=== PATIENT | male | born 1955 | race Caucasian/White ===

== ENCOUNTER 2016-10-06 05:38 | Outpatient (CLI) | payer OTHER ==
[~2016-10-06] VITALS: Ht 177.8 cm; Wt 84.4 kg
[~2016-10-06 05:38] MED LIST: ASCO-262 PO; ASP81TEC PO; AZIL1TAB3 PO; CALC-20 PO; CARV3.122 PO; HYDR-3583 PO; METH-336 PO; MULT-963 PO; NIAC1000 PO; OMG1KC PO; SIMV40TA4 PO; TADA2.5T PO; TEST60GE TD
[2016-10-06] MEDS ORDERED: TAMS0.4C2 PO (10:10)
== END 2016-10-06 10:15 ==
LOC: PREOP 05:38
PROVIDERS: ATTEND Surgery
DX: Z01.818 Encounter for other preprocedural examination (principal); Z12.11 Encounter for screening for malignant neoplasm of colon

== ENCOUNTER 2016-10-10 09:35 | Day surgery (SDC) | payer OTHER ==
[~2016-10-10] VITALS: Ht 177.8 cm; Wt 84.4 kg
[~2016-10-10 09:35] MED LIST changes: +TAMS0.4C2 PO
[2016-10-10] MEDS ORDERED: LACTATED RINGERS 1,000 ML IV STA (09:45)
[2016-10-10] MEDS ORDERED: LACTATED RINGERS 1,000 ML IV ONE (09:50)
[2016-10-10] MEDS ORDERED: MIDAZOLAM 2 MG/2 ML (VERSED) VIAL ONE (10:03)
[2016-10-10] MEDS ORDERED: proPOfol 200 MG/20 ML (DIPRIVAN) VIAL IV ONE ×2 (10:03→10:33)
[2016-10-10 10:10] VITALS: BP 120/90
--- NOTE | 2016-10-10 10:17 | Progress Note-Pre Operative ---
Pre-Operative Progress Note H&P Reviewed The H&P was reviewed, patient examined and no changes noted. Date Seen by Provider: Oct 10, 2016 Time Seen by Provider: 10:16 Date H&P Reviewed: Oct 10, 2016 Time H&P Reviewed: 10:17 Pre-Operative Diagnosis: history of polyps MAY CALDERON DO Oct 10, 2016 10:17 am
--- NOTE | 2016-10-10 10:59 | Progress Note-Post Operative ---
Post-Operative Progess Note Surgeon (s)/Legal Receptionist (s) Surgeon MAY CALDERON DO Legal Receptionist: na Pre-Operative Diagnosis history of polyps Post-Operative Diagnosis sigmoid and rectal polyp diverticulosis Procedure & Operative Findings Date of Procedure 10/10/16 Procedure Performed/Findings colonoscopy with hot biopsy polypectomy, sigmoid and rectal polyp Anesthesia Type per pharmacist critical care Estimated Blood Loss Estimated blood loss (mL): scant Specimens/Packing Specimens Removed distal sigmoid polyp, rectal polyp Packing: none MAY CALDERON DO Oct 10, 2016 10:59 am
--- NOTE | 2016-10-10 11:04 | Discharge Inst-Simple/Standard ---
Discharge Inst-Standard Patient Instructions/Follow Up Plan of Care/Instructions/FU: Follow up with Dr. Houston in 2 weeks. Repeat colonoscopy in 5 years Activity as Tolerated: Yes Discharge Diet: No Restrictions GONSALO CHAO APRN Oct 10, 2016 11:04
[2016-10-10 11:05] VITALS: BP 102/45
[2016-10-10 11:30] VITALS: BP 124/83
[2016-10-10 11:39] VITALS: BP 124/83
--- NOTE | 2016-10-10 12:43 | OPERATIVE REPORT ---
PROCEDURE PHYSICIAN: MAY CALDERON DATE OF PROCEDURE: 10/10/2016 PREOPERATIVE DIAGNOSIS: History of colon polyps. POSTOPERATIVE DIAGNOSES: 1. Sigmoid and rectal polyp. 2. Diverticulosis. PROCEDURE: Colonoscopy hot biopsy polypectomy x2 of sigmoid and rectal polyp. SURGEON: Celso. ANESTHESIA: Per MANAGER [place]. ESTIMATED BLOOD LOSS: Scant. SPECIMEN: Distal sigmoid colon polyp and rectal polyp. INDICATIONS: The patient is a 61-year-old male with history of colon polyps. He understands the risks and benefits of the procedure and wished to proceed with the procedure. Consent was signed on the chart. PROCEDURE: The patient was taken to the endoscopy suite, placed in left lateral recumbent position. Timeout was performed. Digital rectal exam was performed. There were no palpable polyps, masses or ulcerations. The scope was inserted into the rectum and advanced all the way to the cecum with minimal difficulty. Terminal ileum was intubated and then withdrawn. There were no polyps, masses or ulcerations within the cecum, ascending, transverse, and descending colon. Within the sigmoid colon, there is a minimal amount of diverticulosis present. Within the distal portion of the sigmoid colon, a slightly larger polyp was present on the posterior fold. Hot biopsy polypectomy was performed. The scope was then continued be slowly retracted back until in the rectum, where another small polyp near the distal portion of the rectum was present. Hot biopsy polypectomy was performed. There was a little bit oozing which was controlled with electrocautery. Multiple insertions and retractions were made noting no other pathology. The scope was then slowly retracted until completely removed. The patient tolerated the procedure well without any complications, taken to recovery room in stable condition. RECOMMENDATIONS: The patient will need repeat colonoscopy in one year to reevaluate colon polyps due to the distal sigmoid colon being a larger polyp on the posterior fold, would reexamination to make sure that it is completely eradicated. The patient will follow-up in the office in 2 weeks to discuss pathology and findings. If the patient has any problems prior to that, he should be reevaluated at that time. Job ID: [id number] Dictated Date: 10/10/2016 11:02:38 Building Inspector Date: 10/10/2016 12:31:17 / lenore
== END 2016-10-10 11:40 | disposition home or self-care (01) ==
LOC: ENDO 09:35
PROVIDERS: ATTEND Surgery
DX: Z12.11 Encounter for screening for malignant neoplasm of colon (principal); D12.5 Benign neoplasm of sigmoid colon; D12.8 Benign neoplasm of rectum; K57.30 Diverticulosis of large intestine without perforation or abscess without bleeding; Z86.010 Personal history of colon polyps; I10 Essential (primary) hypertension; E78.2 Mixed hyperlipidemia; Z87.891 Personal history of nicotine dependence; Z79.899 Other long term (current) drug therapy
CPT/HCPCS: 88305

== ENCOUNTER → 2016-12-20 | Outpatient (CLI) | payer OTHER ==
[~2016-12-20] VITALS: Ht 177.8 cm; Wt 89.8 kg
[~2016-12-20] MED LIST changes: +CATHETER FLUSH 10 ML SYR IV PRN
--- NOTE | 2016-12-21 06:53 | STRESS TEST ---
DATE OF SERVICE: 12/20/2016 PROCEDURE: Exercise Myoview Stress Test. REFERRING PHYSICIAN: Dr. Anguiano. Baseline heart rate is 69, baseline EKG is sinus rhythm with no ischemic changes. Baseline blood pressure is 113/73. SUMMARY: The patient was injected with 10.61 mCi of technetium-99 Myoview and the resting images were obtained. Then, the patient started exercising with the baseline heart rate, blood pressure and EKG mentioned above. At minute 6 and 50 seconds, the patient was injected with 30.1 mCi of technetium-99 Myoview. He was able to exercise for a total of 8 minutes on standard Ander protocol, achieving maximum heart rate of 153, which is 95% of maximum expected heart rate. With peak exercise level EKG was showing minimal nondiagnostic changes. Blood pressure was 182/60. During recovery, heart rate and blood pressure returned to baseline. EKG returned to baseline. The resting and stress images were reviewed and compared in the short axis, horizontal long axis, and vertical long axis views. Review of the images showed diaphragmatic attenuation with motion artifact affecting the quality of the images. There is questionable ischemia involving the mid to apical inferior wall and inferolateral wall. SSS is 7, SDS 5, TID value 0.96. On the gated images, the left ventricle appeared to be in normal size with mild hypokinesia of the inferior wall and inferoseptum. Calculated ejection fraction 52%. CONCLUSION: 1. Good exercise tolerance a total of 8 minutes on standard Ander protocol, total of 9.7 METS achieving 95% of maximum expected heart rate. 2. Minimal nondiagnostic EKG changes with exercise, returned to baseline during recovery. 3. Diaphragmatic attenuation with motion artifact affecting the quality of the images. There is questionable ischemia involving the mid to apical inferior wall and inferolateral wall. 4. Normal left ventricular size with mild hypokinesia of the inferior wall, calculated ejection fraction 52%. Job ID: [id number] DocumentID: [id number] Dictated Date: 12/20/2016 11:45:33 Cook Sauce Date: 12/20/2016 12:57:05 Dictated By: MADHURI ZAMBRANO MD
== END ==
LOC: CARD 07:51
PROVIDERS: ATTEND Internal Medicine Cardiovascular Disease
DX: R06.09 Other forms of dyspnea (principal); I10 Essential (primary) hypertension; E78.2 Mixed hyperlipidemia
CPT/HCPCS: 78452; 93017

== ENCOUNTER → 2017-07-10 | Outpatient (CLI) | payer OTHER ==
[~2017-07-10] MED LIST changes: +ASPI-586 PO; -CATHETER FLUSH 10 ML SYR IV PRN; +HYDR-3812 PO; +NIAC10002 PO; +TEST200V21 IM
--- NOTE | 2017-07-10 10:32 | Diagnostic Imaging Report ---
PROCEDURE: CT sinuses without contrast TECHNIQUE: Multiple contiguous axial images were obtained through the sinuses without the use of intravenous contrast. Coronal and sagittal reformations were then performed. INDICATION: Left nasal mass, feels a knot on inside of the nose. This has been noticed for approximately 6 months. FINDINGS: There is moderate leftward nasal septal deviation. There are mildly prominent asymmetric areas of nasal mucosal thickening. There is a slightly more focal area of soft tissue density at the level of the septum inferiorly. No pronounced asymmetric nasal spur formation. Very small areas of yarelis bullosa are present. Probable small cysts or polyps of both maxillary sinuses, particularly along the floor but also involving the medial left maxillary sinus wall. There is mucosal thickening with obscuration of the left ostiomeatal complex. There may be slight narrowing without obstruction on the right. There are asymmetric areas of opacification and some mucosal thickening about the ethmoid air cells bilaterally. The frontal sinuses are very hypoplastic. The sphenoid sinuses are with trace mucosal thickening posteriorly on the left. The globes and intra-orbital structures are unremarkable. The visualized mastoid air cells, external auditory canals, and middle ear cavities are clear. IMPRESSION: There is moderate leftward nasal septal deviation. There is slight soft tissue prominence along the inferior aspect of the septum with slight nodularity. The etiology or significance is indeterminate. There is also mild mucosal thickening throughout the remainder of the nasal cavity. 2. Scattered areas of mucosal thickening and opacification of the bilateral ethmoid air cells. 3. Probable small mucous retention cysts or polyps in the bilateral maxillary sinuses. 4. Trace mucosal thickening in the sphenoid sinus. Dictated by: Dictated on workstation # [id number]
== END ==
LOC: RAD 09:04
PROVIDERS: ATTEND Otolaryngology Otolaryngology/Facial Plastic Surgery
DX: J34.2 Deviated nasal septum (principal)
CPT/HCPCS: 70486

== ENCOUNTER 2017-07-25 13:37 | Outpatient (CLI) | payer OTHER ==
[~2017-07-25] VITALS: Ht 180.3 cm; Wt 88.0 kg
[~2017-07-25 13:37] MED LIST changes: -ASPI-586 PO; -HYDR-3812 PO; -NIAC10002 PO; -TEST200V21 IM
[2017-07-25 13:43] VITALS: BP 124/85
[2017-07-26] MEDS ORDERED: ASPI-586 PO (11:39)
[2017-07-26] MEDS ORDERED: TEST200V21 IM (11:39)
[2017-07-26] MEDS ORDERED: OMG1KC PO (11:39)
[2017-07-26] MEDS ORDERED: AZIL1TAB3 PO (11:39)
[2017-07-26] MEDS ORDERED: ASCO-262 PO (11:39)
[2017-07-26] MEDS ORDERED: NIAC10002 PO (11:39)
[2017-07-26] MEDS ORDERED: SIMV40TA4 PO (11:39)
== END 2017-07-25 14:00 ==
LOC: PREOP 13:37
PROVIDERS: ATTEND Otolaryngology Otolaryngology/Facial Plastic Surgery
DX: Z01.818 Encounter for other preprocedural examination (principal); Z11.2 Encounter for screening for other bacterial diseases; R22.0 Localized swelling, mass and lump, head
CPT/HCPCS: 87081

== ENCOUNTER 2017-08-02 06:28 | Day surgery (SDC) | payer OTHER ==
[~2017-08-02] VITALS: Ht 180.3 cm; Wt 88.0 kg
[~2017-08-02 06:28] MED LIST changes: +ASPI-586 PO; +NIAC10002 PO; +TEST200V21 IM
--- OUTSIDE RECORDS SUMMARY | 2017-08-02 06:40 | XMS REPORT | Continuity of Care Document ---
Author Author [facility] Organization [facility] Address Unknown Phone Unavailable Allergies Active Description Code Type Severity Reaction Onset Reported/Identified Relationship to Patient Clinical Status Yes No Known Drug Allergies [id number] Drug Allergy Unknown N/A 10/06/2016 Medications There is no data. Problems Date Dx Coded Attending Type Code Diagnosis Diagnosed By 05/03/2007 Ot V54.19 05/03/2007 Ot V57.1 01/03/2012 Ot 550.90 UNILAT INGUINAL HERNIA 01/03/2012 Ot V58.66 LONG-TERM ( CURRENT) USE OF ASPIRIN 01/03/2012 Ot V58.69 OT MED,LT, CURRENT USE 12/25/2014 Ot 786.09 12/25/2014 Ot V58.66 12/25/2014 Ot V58.69 12/25/2014 Ot 397.0 12/25/2014 Ot 401.9 12/25/2014 Ot 424.0 12/25/2014 Ot 428.30 12/25/2014 Ot 429.3 12/25/2014 Ot 550.90 12/25/2014 Ot V72.63 12/25/2014 Ot V72.81 12/25/2014 Ot V72.83 12/25/2014 Ot V74.8 12/25/2014 NATACHA VICTORIA Ot 272.4 12/25/2014 NATACHA VICTORIA Ot 397.0 12/25/2014 NATACHA VICTORIA Ot 401.9 12/25/2014 NATACHA VICTORIA Ot 414.00 12/25/2014 NATACHA VICTORIA Ot 424.0 12/25/2014 NATACHA VICTORIA Ot 429.3 12/25/2014 NATACHA VICTORIA Ot V17.3 12/29/2014 Ot 786.09 12/29/2014 Ot V58.66 12/29/2014 Ot V58.69 12/29/2014 Ot 397.0 12/29/2014 Ot 401.9 12/29/2014 Ot 424.0 12/29/2014 Ot 428.30 12/29/2014 Ot 429.3 12/29/2014 Ot 550.90 12/29/2014 Ot V72.63 12/29/2014 Ot V72.81 12/29/2014 Ot V72.83 12/29/2014 Ot V74.8 12/29/2014 HUGGINS-KEREN PA, NATACHA K Ot 272.4 12/29/2014 HUGGINS-KEREN PA, NATACHA K Ot 397.0 12/29/2014 HUGGINS-KEREN PA, NATACHA K Ot 401.9 12/29/2014 HUGGINS-KEREN PA, NAATCHA K Ot 414.00 12/29/2014 HUGGINS-KEREN PA, NATACHA K Ot 424.0 12/29/2014 HUGGINS-KEREN PA, NATACHA Pauly Ot 429.3 12/29/2014 HUGGINS-KEREN PA, NATACHA K Ot V17.3 01/05/2015 Ot 786.09 01/05/2015 Ot V58.66 01/05/2015 Ot V58.69 01/05/2015 Ot 397.0 01/05/2015 Ot 401.9 01/05/2015 Ot 424.0 01/05/2015 Ot 428.30 01/05/2015 Ot 429.3 01/05/2015 Ot 550.90 01/05/2015 Ot V72.63 01/05/2015 Ot V72.81 01/05/2015 Ot V72.83 01/05/2015 Ot V74.8 01/05/2015 HUGGINS-KEREN PA, NATACHA K Ot 272.4 01/05/2015 HUGGISN-KEREN PA, NATACHA K Ot 397.0 01/05/2015 HUGGINS-KEREN PA, NATACHA K Ot 401.9 01/05/2015 HUGGINS-KEREN PA, NATACHA K Ot 414.00 01/05/2015 HUGGINS-KEREN PA, NATACHA K Ot 424.0 01/05/2015 HUGGINS-KEREN PA, NATACHA K Ot 429.3 01/05/2015 HUGGINS-KEREN PA, NATACHA rag & bone Ot V17.3 01/05/2015 GAYLA DO, PAULA R Ot E29.1 01/05/2015 GAYLA DO, PAULA R Ot M79.9 01/28/2015 GAYLA NINA, PAULA R Ot E29.1 01/28/2015 GAYLA NINA, PAULA R Ot M79.9 01/28/2015 GAYLA NINA, PAULA R Ot K76.89 07/07/2015 NATACHA VICTORIA Ot E78.2 07/07/2015 NATACHA VICTORIA Ot I10 07/07/2015 NATACHA VICTORIA Ot I51.7 07/09/2015 Ot 786.09 RESPIRATORY ABNORM NEC 07/09/2015 Ot V58.66 LONG-TERM ( CURRENT) USE OF ASPIRIN 07/09/2015 Ot V58.69 OTH MED,LT, CURRENT USE 07/09/2015 Ot 397.0 TRICUSPID VALVE DISEASE 07/09/2015 Ot 401.9 HYPERTENSION NOS 07/09/2015 Ot 424.0 MITRAL VALVE DISORDER 07/09/2015 Ot 428.30 UNSPEC DIASTOLIC HRT FAILURE 07/09/2015 Ot 429.3 CARDIOMEGALY 07/09/2015 Ot 550.90 UNILAT INGUINAL HERNIA 07/09/2015 Ot V72.63 PRE- PROCEDURAL LABORATORY EXAMINATION 07/09/2015 Ot V72.81 EXAM-PRE- OPERATIVE CARDIOVASCULAR 07/09/2015 Ot V72.83 EXAM PRE- OPERATIVE NEC 07/09/2015 Ot V74.8 SCREEN- BACTERIAL DIS NEC 07/09/2015 NATACHA VICTORIA Ot 272.4 HYPERLIPIDEMIA NEC/NOS 07/09/2015 NATACHA VICTORIA Ot 397.0 TRICUSPID VALVE DISEASE 07/09/2015 NATACHA VICTORIA Ot 401.9 HYPERTENSION NOS 07/09/2015 NATACHA VICTORIA Ot 414.00 CORON ATHEROSCLER NOS TYPE VESSEL, NATIV 07/09/2015 NATACHA VICTORIA Ot 424.0 MITRAL VALVE DISORDER 07/09/2015 NATACHA VICTORIA Ot 429.3 CARDIOMEGALY 07/09/2015 NATACHA VICTORIA Ot V17.3 FAM HX-ISCHEM HEART DIS 07/09/2015 JUAN SHUKLA DON R Ot E29.1 TESTICULAR HYPOFUNCTION 07/09/2015 GAYLA PAULA R Ot M79.9 SOFT TISSUE DISORDER, UNSPECIFIED 07/09/2015 GAYLA NINAJUANN R Ot K76.89 OTHER SPECIFIED DISEASES OF LIVER 07/09/2015 NATACHA VICTORIA Ot E78.2 MIXED HYPERLIPIDEMIA 07/09/2015 NATACHA VICTORIA Ot I10 ESSENTIAL (PRIMARY) HYPERTENSION 07/09/2015 NATACHA VICTORIA Ot I51.7 CARDIOMEGALY 07/09/2015 NATACHA VICTORIA Ot E78.2 MIXED HYPERLIPIDEMIA 07/09/2015 NATACHA VICTORIA Ot I10 ESSENTIAL (PRIMARY) HYPERTENSION 07/09/2015 NATACHA VICTORIA Ot I51.7 CARDIOMEGALY 08/04/2015 NATACHA VICTORIA Ot E78.2 MIXED HYPERLIPIDEMIA 08/04/2015 NATACHA VICTORIA Ot I10 ESSENTIAL (PRIMARY) HYPERTENSION 08/04/2015 NATACHA VICTORIA Ot I51.7 CARDIOMEGALY 11/12/2015 Ot 272.4 11/12/2015 Ot V58.69 11/12/2015 Ot V58.83 11/12/2015 Ot 272.4 11/12/2015 Ot V58.69 11/12/2015 Ot 272.4 11/12/2015 Ot V58.69 11/12/2015 Ot 272.4 11/12/2015 Ot 786.09 RESPIRATORY ABNORM NEC 11/12/2015 Ot V58.66 LONG-TERM ( CURRENT) USE OF ASPIRIN 11/12/2015 Ot V58.69 OT MED,LT, CURRENT USE 11/12/2015 Ot 397.0 TRICUSPID VALVE DISEASE 11/12/2015 Ot 401.9 HYPERTENSION NOS 11/12/2015 Ot 424.0 MITRAL VALVE DISORDER 11/12/2015 Ot 428.30 UNSPEC DIASTOLIC HRT FAILURE 11/12/2015 Ot 429.3 CARDIOMEGALY 11/12/2015 Ot 550.90 UNILAT INGUINAL HERNIA 11/12/2015 Ot V72.63 PRE- PROCEDURAL LABORATORY EXAMINATION 11/12/2015 Ot V72.81 EXAM-PRE- OPERATIVE CARDIOVASCULAR 11/12/2015 Ot V72.83 EXAM PRE- OPERATIVE NEC 11/12/2015 Ot V74.8 SCREEN- BACTERIAL DIS NEC 11/12/2015 NATACHA VICTORIA Ot 272.4 HYPERLIPIDEMIA NEC/NOS 11/12/2015 NATACHA VICTORIA Ot 397.0 TRICUSPID VALVE DISEASE 11/12/2015 NATACHA VICTORIA Ot 401.9 HYPERTENSION NOS 11/12/2015 NATACHA VICTORIA Ot 414.00 CORON ATHEROSCLER NOS TYPE VESSEL, NATIV 11/12/2015 NATACHA VICTORIA Ot 424.0 MITRAL VALVE DISORDER 11/12/2015 NATACHA VICTORIA Ot 429.3 CARDIOMEGALY 11/12/2015 NATACHA VICTORIA Ot V17.3 FAM HX-ISCHEM HEART DIS 11/12/2015 PAULA SHUKLA DO Ot E29.1 TESTICULAR HYPOFUNCTION 11/12/2015 PAULA SHUKLA DO Ot M79.9 SOFT TISSUE DISORDER, UNSPECIFIED 11/12/2015 PAULA SHUKLA DO Ot K76.89 OTHER SPECIFIED DISEASES OF LIVER 10/06/2016 MAY CALDERON DO Ot Z01.818 ENCOUNTER FOR OTHER PREPROCEDURAL EXAMIN 10/06/2016 MAY CALDERON DO Ot Z12.11 ENCOUNTER FOR SCREENING FOR MALIGNANT NE 10/09/2016 Ot 397.0 TRICUSPID VALVE DISEASE 10/09/2016 Ot 401.9 HYPERTENSION NOS 10/09/2016 Ot 424.0 MITRAL VALVE DISORDER 10/09/2016 Ot 428.30 UNSPEC DIASTOLIC HRT FAILURE 10/09/2016 Ot 429.3 CARDIOMEGALY 10/09/2016 Ot 550.90 UNILAT INGUINAL HERNIA 10/09/2016 Ot V72.63 PRE- PROCEDURAL LABORATORY EXAMINATION 10/09/2016 Ot V72.81 EXAM-PRE- OPERATIVE CARDIOVASCULAR 10/09/2016 Ot V72.83 EXAM PRE- OPERATIVE NEC 10/09/2016 Ot V74.8 SCREEN- BACTERIAL DIS NEC 10/09/2016 NATACHA VICTORIA Ot 272.4 HYPERLIPIDEMIA NEC/NOS 10/09/2016 NATACHA VICTORIA Ot 397.0 TRICUSPID VALVE DISEASE 10/09/2016 NATACHA VICTORIA Ot 401.9 HYPERTENSION NOS 10/09/2016 NATACHA VICTORIA Ot 414.00 CORON ATHEROSCLER NOS TYPE VESSEL, NATIV 10/09/2016 NATACHA VICTORIA Ot 424.0 MITRAL VALVE DISORDER 10/09/2016 NATACHA VICTORIA Ot 429.3 CARDIOMEGALY 10/09/2016 NATACHA VICTORIA Ot V17.3 FAM HX-ISCHEM HEART DIS 10/09/2016 GAYLA DO, PAULA R Ot E29.1 TESTICULAR HYPOFUNCTION 10/09/2016 GAYLA DO, PAULA R Ot M79.9 SOFT TISSUE DISORDER, UNSPECIFIED 10/09/2016 GAYLA DO, PAULA R Ot K76.89 OTHER SPECIFIED DISEASES OF LIVER 10/09/2016 NATACHA VICTORIA Ot E78.2 MIXED HYPERLIPIDEMIA 10/09/2016 NATACHA VICTORIA Ot I10 ESSENTIAL (PRIMARY) HYPERTENSION 10/09/2016 NATACHA VICTORIA Ot I51.7 CARDIOMEGALY 10/10/2016 Ot 397.0 TRICUSPID VALVE DISEASE 10/10/2016 Ot 401.9 HYPERTENSION NOS 10/10/2016 Ot 424.0 MITRAL VALVE DISORDER 10/10/2016 Ot 428.30 UNSPEC DIASTOLIC HRT FAILURE 10/10/2016 Ot 429.3 CARDIOMEGALY 10/10/2016 Ot 550.90 UNILAT INGUINAL HERNIA 10/10/2016 Ot V72.63 PRE- PROCEDURAL LABORATORY EXAMINATION 10/10/2016 Ot V72.81 EXAM-PRE- OPERATIVE CARDIOVASCULAR 10/10/2016 Ot V72.83 EXAM PRE- OPERATIVE NEC 10/10/2016 Ot V74.8 SCREEN- BACTERIAL DIS NEC 10/10/2016 NATACHA VICTORIA Ot 272.4 HYPERLIPIDEMIA NEC/NOS 10/10/2016 NATACHA VICTORIA Ot 397.0 TRICUSPID VALVE DISEASE 10/10/2016 NATACHA VICTORIA Ot 401.9 HYPERTENSION NOS 10/10/2016 NATACHA VICTORIA Ot 414.00 CORON ATHEROSCLER NOS TYPE VESSEL, NATIV 10/10/2016 NATACHA VICTORIA Ot 424.0 MITRAL VALVE DISORDER 10/10/2016 NATACHA VICTORIA Ot 429.3 CARDIOMEGALY 10/10/2016 NATACHA VICTORIA Ot V17.3 FAM HX-ISCHEM HEART DIS 10/10/2016 PAULA SHUKLA DO Ot E29.1 TESTICULAR HYPOFUNCTION 10/10/2016 PAULA SHUKLA DO Ot M79.9 SOFT TISSUE DISORDER, UNSPECIFIED 10/10/2016 PAULA SHUKLA DO Ot K76.89 OTHER SPECIFIED DISEASES OF LIVER 10/10/2016 NATACHA VICTORIA Ot E78.2 MIXED HYPERLIPIDEMIA 10/10/2016 NATACHA VICTORIA Ot I10 ESSENTIAL (PRIMARY) HYPERTENSION 10/10/2016 NATACHA VICTORIA Ot I51.7 CARDIOMEGALY 10/10/2016 MAY CALDERON DO Ot D12.5 BENIGN NEOPLASM OF SIGMOID COLON 10/10/2016 MAY CALDERON DO Ot D12.8 BENIGN NEOPLASM OF RECTUM 10/10/2016 MAY CALDERON DO Ot E78.2 MIXED HYPERLIPIDEMIA 10/10/2016 MAY CALDERON DO Ot I10 ESSENTIAL (PRIMARY) HYPERTENSION 10/10/2016 MAY CALDERON DO Ot K57.30 DVRTCLOS OF LG INT W/O PERFORATION OR AB 10/10/2016 MAY CALDERON DO Ot Z12.11 ENCOUNTER FOR SCREENING FOR MALIGNANT NE 10/10/2016 MAY CALDERON DO Ot Z79.899 OTHER SECOND FLOOR OPERATOR (CURRENT) DRUG THERAPY 10/10/2016 MAY CALDERON DO Ot Z86.010 PERSONAL HISTORY OF COLONIC POLYPS 10/10/2016 MAY CALDERON DO Ot Z87.891 PERSONAL HISTORY OF NICOTINE DEPENDENCE 12/19/2016 Ot 397.0 TRICUSPID VALVE DISEASE 12/19/2016 Ot 401.9 HYPERTENSION NOS 12/19/2016 Ot 424.0 MITRAL VALVE DISORDER 12/19/2016 Ot 428.30 UNSPEC DIASTOLIC HRT FAILURE 12/19/2016 Ot 429.3 CARDIOMEGALY 12/19/2016 Ot 550.90 UNILAT INGUINAL HERNIA 12/19/2016 Ot V72.63 PRE- PROCEDURAL LABORATORY EXAMINATION 12/19/2016 Ot V72.81 EXAM-PRE- OPERATIVE CARDIOVASCULAR 12/19/2016 Ot V72.83 EXAM PRE- OPERATIVE NEC 12/19/2016 Ot V74.8 SCREEN- BACTERIAL DIS NEC 12/19/2016 NATACHA VICTORIA Ot 272.4 HYPERLIPIDEMIA NEC/NOS 12/19/2016 NATACHA VICTORIA Ot 397.0 TRICUSPID VALVE DISEASE 12/19/2016 NATACHA VICTORIA Ot 401.9 HYPERTENSION NOS 12/19/2016 NATACHA VICTORIA Ot 414.00 CORON ATHEROSCLER NOS TYPE VESSEL, NATIV 12/19/2016 NATACHA VICTORIA Ot 424.0 MITRAL VALVE DISORDER 12/19/2016 NATACHA VICTORIA Ot 429.3 CARDIOMEGALY 12/19/2016 NATACHA VICTORIA Ot V17.3 FAM HX-ISCHEM HEART DIS 12/19/2016 PAULA SHUKLA DO Ot E29.1 TESTICULAR HYPOFUNCTION 12/19/2016 PAULA SHUKLA DO Ot M79.9 SOFT TISSUE DISORDER, UNSPECIFIED 12/19/2016 PAULA SHUKLA DO Ot K76.89 OTHER SPECIFIED DISEASES OF LIVER 12/19/2016 NATACHA VICTORIA Ot E78.2 MIXED HYPERLIPIDEMIA 12/19/2016 NATACHA VICTORIA Ot I10 ESSENTIAL (PRIMARY) HYPERTENSION 12/19/2016 NATACHA VICTORIA Ot I51.7 CARDIOMEGALY 12/21/2016 MADHURI ZAMBRANO MD Ot E78.2 MIXED HYPERLIPIDEMIA 12/21/2016 MADHURI ZAMBRANO MD Ot I10 ESSENTIAL (PRIMARY) HYPERTENSION 12/21/2016 MADHURI ZAMBRANO MD Ot R06.09 OTHER FORMS OF DYSPNEA 01/04/2017 MADHURI ZAMBRANO MD Ot E78.2 MIXED HYPERLIPIDEMIA 01/04/2017 MADHURI ZAMBRANO MD Ot I10 ESSENTIAL (PRIMARY) HYPERTENSION 01/04/2017 MADHURI ZAMBRANO MD Ot R06.09 OTHER FORMS OF DYSPNEA 07/09/2017 NATACHA VICTORIA Ot 272.4 HYPERLIPIDEMIA NEC/NOS 07/09/2017 NATACHA VICTORIA Ot 397.0 TRICUSPID VALVE DISEASE 07/09/2017 NATACHA VICTORIA Ot 401.9 HYPERTENSION NOS 07/09/2017 NATACHA VICTORIA Ot 414.00 CORON ATHEROSCLER NOS TYPE VESSEL, NATIV 07/09/2017 NATACHA VICTORIA Ot 424.0 MITRAL VALVE DISORDER 07/09/2017 NATACHA VICTORIA Ot 429.3 CARDIOMEGALY 07/09/2017 NATACHA VICTORIA Ot V17.3 FAM HX-ISCHEM HEART DIS 07/09/2017 GAYLAJUAN RENEE DON R Ot E29.1 TESTICULAR HYPOFUNCTION 07/09/2017 GAYLATHELMA NINA PAULA R Ot M79.9 SOFT TISSUE DISORDER, UNSPECIFIED 07/09/2017 GAYLA DO, PAULA R Ot K76.89 OTHER SPECIFIED DISEASES OF LIVER 07/09/2017 NATACHA VICTORIA Ot E78.2 MIXED HYPERLIPIDEMIA 07/09/2017 NATACHA VICTORIA Ot I10 ESSENTIAL (PRIMARY) HYPERTENSION 07/09/2017 NATACHA VICTORIA Ot I51.7 CARDIOMEGALY 07/09/2017 MADHURI ZAMBRANO MD Ot E78.2 MIXED HYPERLIPIDEMIA 07/09/2017 MADHURI ZAMBRANO MD, Ot I10 ESSENTIAL (PRIMARY) HYPERTENSION 07/09/2017 MADHURI ZAMBRANO MD Ot R06.09 OTHER FORMS OF DYSPNEA 07/26/2017 JESSICA RICHARDS MD Ot R22.0 LOCALIZED SWELLING, MASS AND LUMP, HEAD 07/26/2017 JESSICA RICHARDS MD Ot Z01.818 ENCOUNTER FOR OTHER PREPROCEDURAL EXAMIN 07/26/2017 JESSICA RICHARDS MD Ot Z11.2 ENCOUNTER FOR SCREENING FOR OTHER BACTER Procedures There is no data. Results Test Result Range Methicillin resistant Staphylococcus aureus (MRSA) screening culture - 13:53 Methicillin resistant Staphylococcus aureus (MRSA) screening culture NEG NRG Encounters ACCT No. Visit Date/Time Discharge Status Pt. Type Provider Facility Loc./Unit Complaint [id number] 07/25/2017 13:37:00 07/25/2017 14:00:00 DIS Outpatient JESSICA RICHARDS MD [facility] PREOP LEFT NASAL MASS [id number] 07/10/2017 09:04:00 07/10/2017 23:59:59 CLS Outpatient JESSICA RICHARDS MD [facility] RAD LT NASAL DORSUM MASS [id number] 01/03/2017 13:00:00 01/03/2017 23:59:59 CLS Preadmit MADHURI ZAMBRANO MD [facility] CATH ABN STRESS, SOB, HTN [id number] 12/20/2016 07:51:00 12/20/2016 23:59:59 CLS Outpatient MADHURI ZAMBRANO MD [facility] CARD ESPINAL,HTN [id number] 10/10/2016 09:35:00 10/10/2016 11:40:00 DIS Outpatient MAY CALDERON DO [facility] ENDO SCREENING [id number] 10/06/2016 05:38:00 10/06/2016 10:15:00 DIS Outpatient MAY CALDERON DO [facility] PREOP SCREENING COLO [id number] 07/06/2015 12:29:00 07/06/2015 23:59:59 CLS Outpatient NATACHA VICTORIA [facility] CARD HTN,HLP,LVH [id number] 01/05/2015 10:15:00 01/05/2015 23:59:59 CLS Outpatient PAULA SHUKLA DO [facility] RAD HEPATIC MASS ON CT [id number] 12/25/2014 07:36:00 12/25/2014 23:59:59 CLS Outpatient PAULA SHUKLA DO [facility] RAD SOFT TISSUE MASS RIGHT [id number] 08/08/2013 13:00:00 08/08/2013 23:59:59 CLS Outpatient NATACHA VICTORIA [facility] CARD CAD,FAM HX OF CAD, HTN, HLP [id number] 03/29/2013 13:02:00 03/29/2013 23:59:59 CLS Outpatient RAFITA BILLS [facility] QUICK POSSIBLE SINGLES/ FLU [id number] 08/02/2017 10:15:00 PEN Preadmit MAURICE PATEL, JESSICA Crespo [facility] SDC LEFT NASAL MASS [id number] 11/12/2015 14:58:00 Document Registration [id number] 11/12/2015 14:58:00 Document Registration [id number] 11/12/2015 14:58:00 Document Registration [id number] 01/08/2012 13:18:00 Document Registration [id number] 01/03/2012 05:52:00 Document Registration [id number] 01/01/2012 09:58:00 Document Registration [id number] 03/09/2010 08:00:00 Document Registration [id number] 05/01/2007 15:44:00 Document Registration [id number] 12/11/2006 09:03:00 Document Registration [id number] 06/15/2006 11:25:00 Document Registration [id number] 12/15/2005 09:36:00 Document Registration [id number] 2005 08:10:00 Document Registration
[2017-08-02 06:45] VITALS: BP 123/83
--- NOTE | 2017-08-02 07:02 | Progress Note-Pre Operative ---
Pre-Operative Progress Note H&P Reviewed The H&P was reviewed, patient examined and no changes noted. Date Seen by Provider: August 02, 2017 Time Seen by Provider: 07:00 Date H&P Reviewed: August 02, 2017 Time H&P Reviewed: 07:00 Pre-Operative Diagnosis: Left Nasal Dorsum Mask JESSICA RICHARDS MD August 02, 2017 7:02 am
[2017-08-02] MEDS: LACTATED RINGERS 1,000 ML IV PRN ×2 (07:05→08:51)
[2017-08-02] MEDS ORDERED: MUPIROCIN 2% OINT 22 GM (BACTROBAN) TUBE ONE (07:05)
[2017-08-02] MEDS ORDERED: LIDOCAINE/EPI 1%-1:200,000 (XYLOCAINE) 10 ML VIAL ONE ×2 (07:06→07:54)
[2017-08-02] MEDS ORDERED: fentaNYL INJECTION 100 MCG/2 ML AMP ONE (07:33)
[2017-08-02] MEDS ORDERED: MIDAZOLAM 2 MG/2 ML (VERSED) VIAL ONE (07:33)
[2017-08-02] MEDS ORDERED: COCAINE HCL 4% 2 ML SYR ONE (07:53)
[2017-08-02] MEDS ORDERED: PHENYLEPHRINE 0.5% NASAL SPR (NEO-SYNEPHRINE) REG ONE (07:54)
[2017-08-02] MEDS ORDERED: BSS 15 ML ONE (07:54)
[2017-08-02] MEDS ORDERED: DEXAMETHASONE 10 MG/ML (DECADRON) 1 ML VIAL ONE (08:09)
[2017-08-02] MEDS ORDERED: LIDOCAINE PF 2% 5 ML (XYLOCAINE) VIAL ONE (08:09)
[2017-08-02] MEDS ORDERED: LIDOCAINE JELLY 2% (XYLOCAINE) 5 ML TUBE ONE (08:09)
[2017-08-02] MEDS ORDERED: proPOfol 200 MG/20 ML (DIPRIVAN) VIAL IV ONE (08:09)
[2017-08-02] MEDS ORDERED: ROCURONIUM 10 MG/ML 5 ML SYRINGE IV ONE (08:09)
[2017-08-02] MEDS ORDERED: ONDANSETRON 4 MG/2 ML (SDV) Z0FRAN ONE (08:09)
[2017-08-02] MEDS ORDERED: SEVOFLURANE (ULTANE) 15 ML INHAL SOLN ONE ×3 (08:09)
[2017-08-02] MEDS ORDERED: NEOSTIGMINE 1 MG/ML 5 ML SYRINGE ONE (08:13)
[2017-08-02] MEDS ORDERED: GLYCOPYRROLATE 0.2 MG/ML (ROBINUL) 2 ML VIAL ONE (08:13)
--- NOTE | 2017-08-02 08:33 | Progress Note-Post Operative ---
Post-Operative Progess Note Surgeon (s)/Cigarette Packing Machine Operator (s) Surgeon JESSICA RICHARDS MD Cigarette Packing Machine Operator n/a Pre-Operative Diagnosis Left Nasal Dorsum Mask Post-Operative Diagnosis same Post-Op Procedure Note Date of Procedure: August 02, 2017 Name of Procedure Performed: Excision of Left Nasal Dorsum Mass Description & Findings Description and Findings: n/a Anesthesia Type gen lma Estimated Blood Loss minimal Packing none. Specimen(s) collected/removed left nasal dorsum mass JESSICA RICHARDS MD August 02, 2017 8:33 am
[2017-08-02] MEDS ORDERED: ACETAMINOPHEN 325 MG TABLET/CAPLET (TYLENOL) PO PRN (08:45)
[2017-08-02] MEDS ORDERED: ONDANSETRON 4 MG/2 ML (SDV) Z0FRAN IVP PRN (08:45)
[2017-08-02] MEDS ORDERED: MEPERIDINE (DEMEROL) INJ 50 MG/ML IVP PRN (08:45)
[2017-08-02] MEDS ORDERED: morphine INJ 10 MG/ML 1ML (SYR OR VIAL) IVP PRN (08:45)
[2017-08-02] MEDS ORDERED: HYDROcodone/APAP 5 MG/325 MG (LORTAB) TAB PO PRN (08:45)
[2017-08-02 09:30] VITALS: BP 122/84
[2017-08-02] MEDS ORDERED: HYDR-3812 PO (09:36)
[2017-08-02 10:00] VITALS: BP 123/83
--- NOTE | 2017-08-02 10:06 | Anesthesia-General Post-Op ---
General Patient Condition Mental Status/LOC: Same as Preop Cardiovascular: Satisfactory Nausea/Vomiting: Absent Respiratory: Satisfactory Pain: Controlled Complications: Absent Post Op Complications Complications None Follow Up Care/Instructions Patient Instructions None needed. Anesthesia/Patient Condition Patient Condition Patient is doing well, no complaints, stable vital signs, no apparent adverse anesthesia problems. No complications reported per nursing. D/C home per [facility] Criteria: Yes SANJAY RUTH CRNA August 02, 2017 10:06
[2017-08-02 10:30] VITALS: BP 124/95
== END 2017-08-02 10:40 | disposition home or self-care (01) ==
LOC: SDC 06:28
PROVIDERS: ATTEND Otolaryngology Otolaryngology/Facial Plastic Surgery
DX: C44.301 Unspecified malignant neoplasm of skin of nose (principal); I10 Essential (primary) hypertension; E78.00 Pure hypercholesterolemia, unspecified; Z79.82 Long term (current) use of aspirin; Z79.899 Other long term (current) drug therapy
CPT/HCPCS: 88305; 88341; 88342; 88344; 88365

== ENCOUNTER → 2017-08-21 | Outpatient (CLI) | payer OTHER ==
[~2017-08-21] MED LIST changes: +HYDR-3812 PO
--- NOTE | 2017-08-21 15:50 | Diagnostic Imaging Report ---
INDICATION: Malignant melanoma, initial staging. TECHNIQUE: Serum blood glucose level at the time of injection was 121 mg/dL. Patient was administered 13.7 mCi of F-18 FDG intravenously, administered in the left antecubital region, and whole-body PET imaging was performed. Noncontrast CT was also performed for attenuation correction and anatomic correlation. COMPARISON: No prior studies are available for comparison. FINDINGS: There is symmetric activity throughout the brain. There is a tiny focus of hypermetabolism in the left nose with SUV max of approximately 5. This likely correlates to patient's known melanoma. No abnormal hypermetabolism within the soft tissues of the neck is identified. No mediastinal or hilar hypermetabolism is seen. No pulmonary parenchymal hypermetabolism is identified. Imaging through the abdomen and pelvis demonstrates normal physiologic activity within the liver and spleen as well as the genitourinary and GI tracts. No hypermetabolic lymphadenopathy is detected. There does appear to be a bladder diverticulum on the right side. No hypermetabolic pelvic lymphadenopathy is seen. Imaging through the lower extremities demonstrates symmetric activity. No abnormality is detected. Conventional CT does show sigmoid diverticulosis but no evidence of acute diverticulitis. IMPRESSION: Essentially unremarkable whole-body PET scan apart from a small focus of hypermetabolism along the skin surface of the left nose, likely patient's known primary melanoma. No other significant abnormality is seen. No findings to suggest metastatic disease are identified. Dictated by: Dictated on workstation # [id number]
== END ==
LOC: RAD 10:41
PROVIDERS: ATTEND Nurse Practitioner Family
DX: C30.0 Malignant neoplasm of nasal cavity (principal)

== ENCOUNTER 2017-10-09 06:05 | Outpatient (CLI) | payer OTHER ==
[~2017-10-09] VITALS: Ht 180.3 cm; Wt 88.0 kg
== END 2017-10-09 10:27 ==
LOC: PREOP 06:05
PROVIDERS: ATTEND Surgery
DX: Z01.818 Encounter for other preprocedural examination (principal)

== ENCOUNTER 2017-10-16 06:52 | Day surgery (SDC) | payer OTHER ==
[~2017-10-16] VITALS: Ht 180.3 cm; Wt 88.0 kg
[2017-10-16 07:10] VITALS: BP 124/86
[2017-10-16] MEDS ORDERED: LACTATED RINGERS 1,000 ML IV ONE (07:14)
[2017-10-16] MEDS ORDERED: LACTATED RINGERS 1,000 ML IV PRN (07:15)
[2017-10-16] MEDS ORDERED: MIDAZOLAM 2 MG/2 ML (VERSED) VIAL ONE (08:14)
[2017-10-16] MEDS ORDERED: PROPOFOL INJECTION 50 ML IV ONE (08:14)
--- NOTE | 2017-10-16 08:23 | Progress Note-Pre Operative ---
Pre-Operative Progress Note H&P Reviewed The H&P was reviewed, patient examined and no changes noted. Date Seen by Provider: Oct 16, 2017 Time Seen by Provider: 08:23 Date H&P Reviewed: Oct 16, 2017 Time H&P Reviewed: 08:23 Pre-Operative Diagnosis: history polyps MAY CALDERON DO Oct 16, 2017 08:23
--- NOTE | 2017-10-16 09:01 | Discharge Inst-Simple/Standard ---
Discharge Inst-Standard Patient Instructions/Follow Up Plan of Care/Instructions/FU: 2 weeks [place] Activity as Tolerated: Yes Discharge Diet: Regular Diet (high fiber) MAY CALDERON DO Oct 16, 2017 09:01
--- NOTE | 2017-10-16 09:03 | Progress Note-Post Operative ---
Post-Operative Progess Note Surgeon (s)/Hvac Mechanic (s) Surgeon MAY CALDERON DO Hvac Mechanic: na Pre-Operative Diagnosis history polyps Post-Operative Diagnosis mucosal changes terminal ileum, minimal diverticulosis Procedure & Operative Findings Date of Procedure 10/16/17 Procedure Performed/Findings colonoscopy c cold biopsy terminal ileum Anesthesia Type per fur trimmer Estimated Blood Loss Estimated blood loss (mL): none Specimens/Packing Specimens Removed terminal ileum MAY CALDERON DO Oct 16, 2017 09:03
[2017-10-16 09:25] VITALS: BP 107/61
[2017-10-16 09:50] VITALS: BP 106/69
[2017-10-16 09:59] VITALS: BP 106/69
--- NOTE | 2017-10-16 10:47 | Anesthesia-General Post-Op ---
MAC Patient Condition Mental Status/LOC: Same as Preop Cardiovascular: Satisfactory Nausea/Vomiting: Absent Respiratory: Satisfactory Pain: Controlled Complications: Absent Post Op Complications Complications None Follow Up Care/Instructions Patient Instructions None needed. Anesthesiology Discharge Order Discharge Order Patient is doing well, no complaints, stable vital signs, no apparent adverse anesthesia problems. No complications reported per nursing. TIFFANIE GARCIA CRNA Oct 16, 2017 10:47
--- NOTE | 2017-10-16 13:55 | OPERATIVE REPORT ---
DATE OF SERVICE: 10/16/2017 PREOPERATIVE DIAGNOSIS: History of polyps. POSTOPERATIVE DIAGNOSIS: Mucosal changes of the terminal ileum and minimal diverticulosis. PROCEDURE: Colonoscopy with cold biopsy terminal ileum. SURGEON: May Houston DO. ANESTHESIA: Per WASTE DISPOSAL ATTENDANT. ESTIMATED BLOOD LOSS: None. COMPLICATIONS: None. INDICATIONS: The patient is a 62-year-old male with history of polyps. He understands risks and benefits of procedure and wished to proceed with procedure. Consent was signed in the chart. PROCEDURE IN DETAIL: The patient was taken to the endoscopy suite, placed in left lower recumbent position. Timeout was performed. Digital rectal exam was performed. There were no palpable polyps, mass or ulcerations. The scope was inserted into the rectum and advanced all the way to the cecum with minimal difficulty. Prep was adequate. The scope was intubated into the ileocecal valve and into the terminal ileum. Some mucosal changes were present. Biopsies were obtained. Scope was then slowly retracted back into the colon. There were no polyps, masses or ulcerations within the cecum, ascending, transverse, descending and sigmoid colon. Throughout this area, there were very minimal diverticulosis throughout. Once in the rectum, scope was retroflexed noting no other pathology. Scope was returned to its normal position, slowly withdrawn until completely removed. The patient tolerated procedure well without complications and taken to recovery room in stable condition. RECOMMENDATIONS: The patient recommend high fiber diet. He will follow up with the pathology in two weeks to discuss. The patient will need repeat colonoscopy in 5 years unless he has any problems prior to that, he should be reevaluated at that time. Job ID: [id number] DocumentID: [id number] Dictated Date: 10/16/2017 09:05:05 Comfort Filler Date: 10/16/2017 13:54:33 Dictated By: MAY HOUSTON DO [facility]
== END 2017-10-16 10:00 | disposition home or self-care (01) ==
LOC: ENDO 06:52
PROVIDERS: ATTEND Surgery
DX: Z12.11 Encounter for screening for malignant neoplasm of colon (principal); K57.30 Diverticulosis of large intestine without perforation or abscess without bleeding; Z86.010 Personal history of colon polyps; I10 Essential (primary) hypertension; G47.33 Obstructive sleep apnea (adult) (pediatric); Z79.82 Long term (current) use of aspirin

== ENCOUNTER 2019-10-22 11:34 | Inpatient (IN) | payer OTHER ==
[2019-10-22] VITALS (17 sets, daily range): BP systolic 105–134; BP diastolic 80–107
[~2019-10-22] VITALS: Ht 177.8 cm; Wt 99.3 kg
[~2019-10-22 11:34] MED LIST changes: +ACHD5005 PO; -HYDR-3812 PO; +SIMV40TA25 PO
[2019-10-22] MEDS ORDERED: fentaNYL INJECTION 100 MCG/2 ML AMP IVP ONE ×2 (12:45→18:15)
[2019-10-22 12:51] LABS: BASOPHILS % (AUTO) 0 % (0-10); EOSINOPHILS % (AUTO) 0 % (0-10); HEMATOCRIT 47 % (40-54); HEMOGLOBIN 16.1 G/DL (13.3-17.7); LYMPHOCYTES # (AUTO) 0.5 X 10^3 (1.0-4.0); LYMPHOCYTES % (AUTO) 3 % (12-44); MEAN CORPUSCULAR HEMOGLOBIN 29 PG (25-34); MEAN CORPUSCULAR HGB CONC 34 G/DL (32-36); MEAN CORPUSCULAR VOLUME 86 FL (80-99); MEAN PLATELET VOLUME 9.3 FL (7.4-10.4); MONOCYTES # (AUTO) 0.5 X 10^3 (0.0-1.0); MONOCYTES % (AUTO) 2 % (0-12); NEUTROPHILS # (AUTO) 18.1 X 10^3 (1.8-7.8); NEUTROPHILS % (AUTO) 95 % (42-75); PLATELET COUNT 226 10^3/uL (130-400); RED CELL DISTRIBUTION WIDTH 17.6 % (10.0-14.5)
[2019-10-22] MEDS ORDERED: ONDANSETRON 4 MG/2 ML (SDV) Z0FRAN IVP ONE (13:00)
[2019-10-22] MEDS ORDERED: NS IV 1000 ML 1,000 ML IV SCH (13:00)
[2019-10-22 13:01] LABS: CHLORIDE 95 MMOL/L (98-107); POTASSIUM 3.9 MMOL/L (3.6-5.0); SODIUM 133 MMOL/L (135-145)
[2019-10-22 13:03] LABS: CALCIUM 10.7 MG/DL (8.5-10.1)
[2019-10-22 13:04] LABS: GLUCOSE 310 MG/DL (70-105); TOTAL PROTEIN 7.3 GM/DL (6.4-8.2)
[2019-10-22 13:05] LABS: CARBON DIOXIDE 21 MMOL/L (21-32)
[2019-10-22 13:06] LABS: BILIRUBIN,TOTAL 2.4 MG/DL (0.1-1.0)
[2019-10-22 13:07] LABS: ALKALINE PHOSPHATASE 85 U/L (40-136); CREATININE SERUM 1.65 MG/DL (0.60-1.30); GFR ESTIMATED 42
--- NOTE | 2019-10-22 13:07 | ED GI ---
General Chief Complaint: Abdominal/GI Problems Stated Complaint: CONSTIPATION Nursing Triage Note: ARRIVED VIA WC TO ROOM 05. COMPLAINS OF ABD PAIN, CONSTIPATION X 1.5 DAYS, AND SOA. STATES HE THINKS HIS SOA IS FROM HIS CONSTIPATION AND HIS IMMUNOTHERAPY HE RECIEVES FROM HIS CANCER DX. PT STATES HE IS HAVING SOME LIQUID BM. ALSO COMPLAINS OF N/V Sepsis Screen: No Definite Risk Source of Information: Patient Exam Limitations: No Limitations History of Present Illness Date Seen by Provider: Oct 22, 2019 Time Seen by Provider: 12:50 Initial Comments ER with diffuse abdominal pain for about 1.5 days. Last bowel movement was on Sunday. He's also had some increased shortness of breath, states that he has increasing abdominal pain when taking a deep breath. Not passing any gas today. Also has nausea and vomiting. 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 He has no fevers and has not been around anyone with coronavirus as he has been isolating at home. Timing/Duration: 1-2 Days Severity/Quality: Moderate Location: Generalized Abdomen Radiation: No Radiation Activities at Onset: None Associated Symptoms: Nausea/Vomiting Allergies and Home Medications Allergies Coded Allergies: No Known Drug Allergies (Verified , 10/16/17) Home Medications Ascorbate Calcium 500 Mg Tablet, 500 MG PO DAILY, (Reported) Aspirin 81 Mg Tablet.dr, 81 MG PO DAILY, (Reported) Azilsartan Med/Chlorthalidone 1 Each Tablet, 1 EACH PO DAILY, (Reported) Niacin 1,000 Mg Tablet.er, 1,000 MG PO DAILY, (Reported) [place] 3 Polyunsat Fatty Acids 1,000 Mg Cap, 1,000 MG PO BID, (Reported) Simvastatin 40 Mg Tablet, 40 MG PO DAILY, (Reported) Tamsulosin HCl 0.4 Mg Cap.er.24h, 0.4 MG PO DAILY, (Reported) Testosterone Cypionate 200 Mg/1 Ml Vial, 150 MG IM EVERY 2 WEEKS, (Reported) Patient Home Medication List Home Medication List Reviewed: Yes Review of Systems Review of Systems Constitutional: see HPI EENTM: No Symptoms Reported Respiratory: See HPI, Shortness of Air Cardiovascular: No Symptoms Reported Gastrointestinal: See HPI, Abdominal Pain, Constipated, Nausea, Vomiting Genitourinary: No Symptoms Reported Musculoskeletal: no symptoms reported Skin: no symptoms reported Psychiatric/Neurological: No Symptoms Reported Endocrine: No Symptoms Reported Hematologic/Lymphatic: No Symptoms Reported Past Vkbckfo-Rcuftk-Bfmdmc Hx Patient Social History Alcohol Use: Occasionally Uses Number of Drinks Today: AA Alcohol Beverage of Choice: Beer Recreational Drug Use: No Smoking Status: Former Smoker Former Smoker, Quit: Mar 26, 1987 Recent Foreign Travel: No Contact w/Someone Who Travel: No Recent Infectious Disease Expo: No Recent Hopitalizations: No Immunizations Up To Date Tetanus Booster (TDap): Unknown PED Vaccines UTD: No Seasonal Allergies Seasonal Allergies: No Past Medical History Surgeries: Yes (CYST FROM RIGHT HAND, INGUINAL HERNIA, NASAL SURGERY-MELANOMA) Vasectomy Respiratory: Yes Sleep Apnea Currently Using CPAP: Yes Cardiac: Yes High Cholesterol, Hypertension Neurological: No Reproductive Disorders: No Sexually Transmitted Disease: No HIV/AIDS: No Gastrointestinal: No Musculoskeletal: Yes Arthritis Endocrine: No Loss of Vision: Bilateral Hearing Impairment: Denies Cancer: Yes Skin, Melanoma Did You Recieve Any Treatments: Yes What Type of Treatment Did You: Surgical Intervention Psychosocial: No Integumentary: No Blood Disorders: No Adverse Reaction/Blood Tranf: No (N/A) Physical Exam Vital Signs Vital Signs - First Documented 10/22/19 12:44 Temp 36.7 Pulse 103 Resp 16 B/P (MAP) 126/84 (98) Pulse Ox 95 O2 Delivery Room Air Capillary Refill : Less Than 3 Seconds Height/Weight/BMI Height: 5'11.00" Weight: 194lbs. 0.0oz. 87.398871hb; 29.00 BMI Method: General Appearance: WD/WN, mild distress (related to abdominal pain) Neck: non-tender, full range of motion Respiratory: normal breath sounds, no respiratory distress, no accessory muscle use Cardiovascular: regular rate, rhythm, no murmur Gastrointestinal: soft, abnormal bowel sounds (hypoactive), tenderness Extremities: normal range of motion, non-tender Neurologic/Psychiatric: alert, normal mood/affect, oriented x 3 Skin: normal color, warm/dry Focused Exam Lactate Level 10/22/19 14:08: Lactic Acid Level Laboratory Tests Test 10/22/19 14:08 Progress/Results/Core Measures Results/Orders Lab Results Laboratory Tests Test 10/22/19 12:40 10/22/19 14:08 Range/Units White Blood Count 19.0 H 4.3-11.0 10^3/uL Red Blood Count 5.47 4.35-5.85 10^6/uL Hemoglobin 16.1 13.3-17.7 G/DL Hematocrit 47 40-54 % Mean Corpuscular Volume 86 80-99 FL Mean Corpuscular Hemoglobin 29 25-34 PG Mean Corpuscular Hemoglobin Concent 34 32-36 G/DL Red Cell Distribution Width 17.6 H 10.0-14.5 % Platelet Count 226 130-400 10^3/uL Mean Platelet Volume 9.3 7.4-10.4 FL Neutrophils (%) (Auto) 95 H 42-75 % Lymphocytes (%) (Auto) 3 L 12-44 % Monocytes (%) (Auto) 2 0-12 % Eosinophils (%) (Auto) 0 0-10 % Basophils (%) (Auto) 0 0-10 % Neutrophils # (Auto) 18.1 H 1.8-7.8 X 10^3 Lymphocytes # (Auto) 0.5 L 1.0-4.0 X 10^3 Monocytes # (Auto) 0.5 0.0-1.0 X 10^3 Eosinophils # (Auto) 0.0 0.0-0.3 10^3/uL Basophils # (Auto) 0.0 0.0-0.1 10^3/uL Neutrophils % (Manual) 72 % Lymphocytes % (Manual) 5 % Monocytes % (Manual) 3 % Band Neutrophils 20 % Nucleated Red Blood Cells 1 Toxic Granulation 2+ Polychromasia SLIGHT Poikilocytosis SLIGHT Anisocytosis SLIGHT Spherocytes SLIGHT Sodium Level 133 L 135-145 MMOL/L Potassium Level 3.9 3.6-5.0 MMOL/L Chloride Level 95 L 98-107 MMOL/L Carbon Dioxide Level 21 21-32 MMOL/L Anion Gap 17 H 5-14 MMOL/L Blood Urea Nitrogen 30 H 7-18 MG/DL Creatinine 1.65 H 0.60-1.30 MG/DL Estimat Glomerular Filtration Rate 42 BUN/Creatinine Ratio 18 Glucose Level 310 H 70-105 MG/DL Calcium Level 10.7 H 8.5-10.1 MG/DL Corrected Calcium 10.7 H 8.5-10.1 MG/DL Total Bilirubin 2.4 H 0.1-1.0 MG/DL Aspartate Amino Transf (AST/SGOT) 13 5-34 U/L Alanine Aminotransferase (ALT/SGPT) 30 0-55 U/L Alkaline Phosphatase 85 40-136 U/L Troponin I < 0.028 <0.028 NG/ML B-Type Natriuretic Peptide 139.0 H <100.0 PG/ML Total Protein 7.3 6.4-8.2 GM/DL Albumin 4.0 3.2-4.5 GM/DL Lipase 11 8-78 U/L My Orders Orders - EDITH LARIOS APRN Cbc With Automated Diff (10/22/19 12:42) Comprehensive Metabolic Panel (10/22/19 12:42) Lipase (10/22/19 12:42) Ua Culture If Indicated (10/22/19 12:42) Ed Iv/Invasive Line Start (10/22/19 12:42) Chest 1 View, Ap/Pa Only (10/22/19 12:42) Ekg Tracing (10/22/19 12:42) Troponin I (10/22/19 12:42) Fentanyl Injection (Sublimaze Injection (10/22/19 12:45) Ondansetron Injection (Zofran Injectio (10/22/19 13:00) Ns Iv 1000 Ml (Sodium Chloride 0.9%) (10/22/19 13:00) Manual Differential (10/22/19 12:40) Ct Abdomen/Pelvis Wo (10/22/19 13:10) Ct Chest Wo (10/22/19 13:27) BNP (10/22/19 13:32) Piperacillin Sodium/Tazobactam (Zosyn Vi (10/22/19 13:45) Blood Culture (10/22/19 13:57) Lactic Acid Analyzer (10/22/19 13:57) Medications Given in ED Current Medications Medications Dose Ordered Sig/Loulou Route Start Time Stop Time Status Last Admin Dose Admin Fentanyl Citrate 75 mcg ONCE ONCE IVP 10/22/19 12:45 10/22/19 12:46 DC 10/22/19 13:02 75 MCG Ondansetron HCl 8 mg ONCE ONCE IVP 10/22/19 13:00 10/22/19 13:01 DC 10/22/19 13:01 8 MG Vital Signs/I&O 10/22/19 12:44 Temp 36.7 Pulse 103 Resp 16 B/P (MAP) 126/84 (98) Pulse Ox 95 O2 Delivery Room Air Blood Pressure Mean: 98 Diagnostic Imaging Diagonstic Imaging: Xray, CT Comments NAME: TESSY WILLIS [facility] REC#: [id number] PT STATUS: REG ER : 1955 PHYSICIAN: EDITH LARIOS APRN ADMIT DATE: 10/22/19/ER Draft Date of Exam:10/22/19 CHEST 1 VIEW, AP/PA ONLY EXAMINATION: Portable erect AP chest at 01:09 p.m. INDICATION: Shortness of breath. FINDINGS: There is shallow inspiration when compared to the prior exam of 01/01/2012. Even allowing for this technical factor, the heart does seem larger than noted on the prior exam and there may be borderline cardiomegaly. Furthermore, in the interval since the prior study, alveolar/interstitial infiltrates have developed in the right perihilar region, the right upper lung, and left lung base. There are also a few thin strands of atelectasis/infiltrate in the left upper lung. These findings are most likely due to pneumonia/atelectasis. There may be a small amount of fluid in each lung base as well. The mediastinum is not widened. The osseous structures are intact. IMPRESSION: The appearance of the chest has worsened since the previous study as the heart has increased in size and there is now borderline cardiomegaly. There are also bilateral areas of pneumonia/atelectasis. A follow-up exam would be recommended for further evaluation. Dictated on workstation # [id number] Dict: 10/22/19 1320 Trans: 10/22/19 1325 [id number] Interpreted by: ERIN HERNANDEZ MD Electronically signed by: NAME: TESSY WILLIS [facility] REC#: [id number] PT STATUS: REG ER : 1955 PHYSICIAN: EDITH LARIOS APRN ADMIT DATE: 10/22/19/ER Draft Date of Exam:10/22/19 CT CHEST WO EXAMINATION: CT Chest without contrast. TECHNIQUE: Multiple contiguous axial images were obtained through the chest without the use of intravenous contrast. All CT scans use one or more of the following dose optimizing techniques: automated exposure control, MA and/or KvP adjustment based on a patient size and exam type, or iterative reconstruction. HISTORY: Pneumonia. COMPARISON: 12/25/2014. FINDINGS: There is consolidation in a strikingly peribronchovascular distribution in both lungs which is somewhat basilar predominant. There is associated bronchial dilation, most pronounced in the left lower lobe. No nodules are seen. In particular, no perilymphatic nodules to indicate sarcoidosis. No pleural effusion. No pneumothorax. No suspicious nodules. There is no axillary or supraclavicular lymphadenopathy. There is no mediastinal lymphadenopathy. Heart size is normal. There are mild coronary artery calcifications. No pericardial effusion. Aorta is normal in caliber. Limited views of the upper abdomen show free air, better evaluated on dedicated abdomen and pelvis CT performed at the same time. There are no suspicious osseous lesions. IMPRESSION: 1. Strikingly peribronchovascular consolidation in both lungs with a lower lobe predominance. Primary consideration is organizing pneumonia with fungal and viral pneumonia also included in the differential. Less likely is vasculitis and sarcoidosis. 2. Intraperitoneal free air, better evaluated on dedicated abdomen and pelvis imaging. Dictated on workstation # [id number] Dict: 10/22/19 1339 Trans: 10/22/19 1355 [id number] Interpreted by: KELLEE VELIZ MD Electronically signed by: Departure Impression Primary Impression: Diverticulitis of colon with perforation Disposition: ADMITTED INPATIENT Condition: Stable Admissions Decision to Admit/Date: Oct 22, 2019 Time/Decision to Admit Time: 13:39 Departure-Patient Inst. Referrals: ANTIONETTE NUNEZ MD (PCP) Primary Care Physician EDITH LARIOS APRN Oct 22, 2019 13:07
[2019-10-22 13:08] LABS: BUN/CREATININE RATIO 18
[2019-10-22 13:10] LABS: ALANINE AMINOTRANSFERASE 30 U/L (0-55)
--- NOTE | 2019-10-22 13:10 | NUR ---
PTS PULSE OX 84% ROOM AIR AFTER FENTENYL WAS GIVEN. OXYGEN APPLIED 2L NC BY EDITH LARIOS.
[2019-10-22 13:11] LABS: LIPASE 11 U/L (8-78)
--- NOTE | 2019-10-22 13:25 | Diagnostic Imaging Report ---
EXAMINATION: Portable erect AP chest at 01:09 p.m. INDICATION: Shortness of breath. FINDINGS: There is shallow inspiration when compared to the prior exam of 01/01/2012. Even allowing for this technical factor, the heart does seem larger than noted on the prior exam and there may be borderline cardiomegaly. Furthermore, in the interval since the prior study, alveolar/interstitial infiltrates have developed in the right perihilar region, the right upper lung, and left lung base. There are also a few thin strands of atelectasis/infiltrate in the left upper lung. These findings are most likely due to pneumonia/atelectasis. There may be a small amount of fluid in each lung base as well. The mediastinum is not widened. The osseous structures are intact. IMPRESSION: The appearance of the chest has worsened since the previous study as the heart has increased in size and there is now borderline cardiomegaly. There are also bilateral areas of pneumonia/atelectasis. A follow-up exam would be recommended for further evaluation. Dictated by: Dictated on workstation # [id number]
[2019-10-22 13:32] LABS: BAND NEUTROPHILS 20 %; LYMPHOCYTES % (MANUAL) 5 %; MONOCYTES % (MANUAL) 3 %; NEUTROPHILS % (MANUAL) 72 %; NUCLEATED RED BLOOD CELLS 1
[2019-10-22 13:33] LABS: ANISOCYTOSIS SLIGHT; POIKILOCYTOSIS SLIGHT; POLYCHROMASIA SLIGHT; SPHEROCYTES SLIGHT; TOXIC GRANULATION/VACUOLAZATIO 2+
[2019-10-22] MEDS ORDERED: PIPERACILLIN SODIUM/TAZOBACTAM 4.5 GM in NS (IVPB) 100 ML IV ONE (13:45)
--- NOTE | 2019-10-22 13:56 | Diagnostic Imaging Report ---
EXAMINATION: CT Chest without contrast. TECHNIQUE: Multiple contiguous axial images were obtained through the chest without the use of intravenous contrast. All CT scans use one or more of the following dose optimizing techniques: automated exposure control, MA and/or KvP adjustment based on a patient size and exam type, or iterative reconstruction. HISTORY: Pneumonia. COMPARISON: 12/25/2014. FINDINGS: There is consolidation in a strikingly peribronchovascular distribution in both lungs which is somewhat basilar predominant. There is associated bronchial dilation, most pronounced in the left lower lobe. No nodules are seen. In particular, no perilymphatic nodules to indicate sarcoidosis. No pleural effusion. No pneumothorax. No suspicious nodules. There is no axillary or supraclavicular lymphadenopathy. There is no mediastinal lymphadenopathy. Heart size is normal. There are mild coronary artery calcifications. No pericardial effusion. Aorta is normal in caliber. Limited views of the upper abdomen show free air, better evaluated on dedicated abdomen and pelvis CT performed at the same time. There are no suspicious osseous lesions. IMPRESSION: 1. Strikingly peribronchovascular consolidation in both lungs with a lower lobe predominance. Primary consideration is organizing pneumonia with fungal and viral pneumonia also included in the differential. Less likely is vasculitis and sarcoidosis. 2. Intraperitoneal free air, better evaluated on dedicated abdomen and pelvis imaging. Dictated by: Dictated on workstation # [id number]
--- NOTE | 2019-10-22 14:07 | NUR ---
PT STATES HE FEELS BETTER. ALSO STATES HE IS STILL NOT ABLE TO PEE.
[2019-10-22] MEDS ORDERED: HYDROCORTISONE 100 MG/2 ML (Solu-CORTEF) VIAL IV ONE (14:15)
--- NOTE | 2019-10-22 14:17 | Diagnostic Imaging Report ---
PROCEDURE: CT abdomen and pelvis without contrast. TECHNIQUE: Multiple contiguous axial images were obtained through the abdomen and pelvis without the use of intravenous contrast. Auto Exposure Controls were utilized during the CT exam to meet ALARA standards for radiation dose reduction. INDICATION: Abdominal pain. COMPARISON: August 21, 2017. FINDINGS: Peribronchial consolidations are identified within the bilateral lower lobes with associated bronchiectatic changes. This appears to be a change since the most recent PET/CT from July 2017. The unenhanced liver, spleen, adrenal glands, and pancreas are unremarkable. The gallbladder is unremarkable. A 2 mm calculus is identified within the mid right ureter without resulting hydroureteronephrosis. The distal right ureter is unremarkable. Tiny nonobstructing left renal calculi. The left ureter is unremarkable. Moderate vascular calcifications without aneurysmal dilatation of the abdominal aorta. The appendix is unremarkable. Diverticulum arising from the right aspect of the urinary bladder. Otherwise, the urinary bladder is unremarkable. Small left and qsrmy-sy-afktbofo sized fat-containing right inguinal hernias. Moderate colonic diverticulosis. A couple of loops of small bowel within the central abdomen just to the right of midline demonstrate significant mural thickening. Fat stranding is noted about this region extending inferiorly. A more focal soft tissue density and inflammatory stranding is identified lying between the loops of small bowel and the adjacent sigmoid colon. This is best seen on series 602 image 38. Lucencies are noted associated with the third to fourth portion of the duodenum, favored related to a duodenal diverticulum. No bowel obstruction or pneumatosis. Small amount of free fluid within the lower pelvis. Significant amount of free air throughout the abdomen and pelvis. No significant adenopathy. No acute osseous abnormality. IMPRESSION: Significant amount of free air throughout the abdomen and pelvis. Findings are favored related to underlying bowel injury/perforation associated with loops of small bowel within the central abdomen just to the right of midline given significant mural thickening and adjacent inflammatory stranding. However, some of the inflammatory stranding does extend towards the sigmoid colon and ruptured diverticulitis would be an additional consideration. Developing phlegmon/abscess is suspected between the small bowel and sigmoid colon. Tiny nonobstructing 2 mm calculus within the mid right ureter. Punctate non-obstructing left renal calculi. Bibasilar peribronchial consolidation. This most likely relates to underlying organizing pneumonia including fungal or viral etiologies. Findings discussed with Dr. Swift at 1409 hours on October 22, 2019. Dictated by: Dictated on workstation # [id number]
--- NOTE | 2019-10-22 14:28 | NUR ---
DR HERNANDEZ HERE TO SEE PT.
[2019-10-22] MEDS ORDERED: ROCURONIUM 10 MG/ML 5 ML SYRINGE IV ONE ×2 (14:39→16:02)
[2019-10-22] MEDS ORDERED: proPOfol 200 MG/20 ML (DIPRIVAN) VIAL IV ONE (14:39)
[2019-10-22] MEDS ORDERED: LIDOCAINE PF 2% 5 ML (XYLOCAINE) VIAL ONE (14:39)
[2019-10-22] MEDS ORDERED: GLYCOPYRROLATE 0.2 MG/ML (ROBINUL) 2 ML VIAL ONE (14:39)
[2019-10-22] MEDS ORDERED: fentaNYL INJECTION 100 MCG/2 ML AMP ONE ×2 (14:39→15:33)
[2019-10-22] MEDS ORDERED: MIDAZOLAM 2 MG/2 ML (VERSED) VIAL ONE (14:39)
[2019-10-22] MEDS ORDERED: ONDANSETRON 4 MG/2 ML (SDV) Z0FRAN ONE ×2 (14:39→15:33)
[2019-10-22] MEDS ORDERED: NEOSTIGMINE 3 MG/3 ML VIAL ONE (14:39)
[2019-10-22] MEDS ORDERED: SEVOFLURANE (ULTANE) 15 ML INHAL SOLN ONE ×8 (14:40→17:12)
[2019-10-22] MEDS ORDERED: PIPERACILLIN/TAZO 4.5 GM VIAL (ZOSYN) IV ONE (14:42)
[2019-10-22] MEDS ORDERED: NS (IVPB) 100 ML ONE (14:42)
--- NOTE | 2019-10-22 14:45 | Consultation - Surgery ---
History of Present Illness History of Present Illness Patient Consulted On(paxton/time) 10/22/19 14:39 Time Seen by Provider: 14:08 History of Present Illness Surgery asked to consult regarding free air in the abdomen. HPI per ED: ARRIVED VIA WC TO ROOM 05. COMPLAINS OF ABD PAIN, CONSTIPATION X 1 .5 DAYS, AND SOA. STATES HE THINKS HIS SOA IS FROM HIS CONSTIPATION AND HIS IMMUNOTHERAPY HE RECIEVES FROM HIS CANCER DX. PT STATES HE IS HAVING SOME LIQUID BM. ALSO COMPLAINS OF N/V ER with diffuse abdominal pain for about 1.5 days. Last bowel movement was on Sunday. He's also had some increased shortness of breath, states that he has increasing abdominal pain when taking a deep breath. Not passing any gas today. Also has nausea and vomiting. 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 He has no fevers and has not been around anyone with coronavirus as he has been isolating at home. Timing/Duration: 1-2 Days Severity/Quality: Moderate Location: Generalized Abdomen Radiation: No Radiation Activities at Onset: None Associated Symptoms: Nausea/Vomiting When I spoke to pt in the ER he states he has never had pain like this before; only abdominal surgery he has had was Lap Hiatal Hernia repair. Nothing makes the pain better. Allergies and Home Medications Allergies Coded Allergies: No Known Drug Allergies (Verified , 10/16/17) Home Medications Ascorbate Calcium 500 Mg Tablet, 500 MG PO DAILY, (Reported) Aspirin 81 Mg Tablet.dr, 81 MG PO DAILY, (Reported) Azilsartan Med/Chlorthalidone 1 Each Tablet, 1 EACH PO DAILY, (Reported) Niacin 1,000 Mg Tablet.er, 1,000 MG PO DAILY, (Reported) [place] 3 Polyunsat Fatty Acids 1,000 Mg Cap, 1,000 MG PO BID, (Reported) Simvastatin 40 Mg Tablet, 40 MG PO DAILY, (Reported) Tamsulosin HCl 0.4 Mg Cap.er.24h, 0.4 MG PO DAILY, (Reported) Testosterone Cypionate 200 Mg/1 Ml Vial, 150 MG IM EVERY 2 WEEKS, (Reported) Patient Home Medication List Home Medication List Reviewed: Yes Past Wprjbaj-Pxbqxl-Xokxip Hx Patient Social History Alcohol Use: Occasionally Uses Number of Drinks Today: AA Recreational Drug Use: No Smoking Status: Former Smoker Former Smoker, Quit: Mar 26, 1987 Recent Foreign Travel: No Contact w/Someone Who Travel: No Recent Infectious Disease Expo: No Recent Hopitalizations: No Immunizations Up To Date Tetanus Booster (TDap): Unknown PED Vaccines UTD: No Seasonal Allergies Seasonal Allergies: No Surgeries History of Surgeries: Yes (CYST FROM RIGHT HAND, INGUINAL HERNIA, NASAL SURGERY-MELANOMA) Surgeries: Vasectomy Respiratory History of Respiratory Disorde: Yes Respiratory Disorders: Sleep Apnea Cardiovascular History of Cardiac Disorders: Yes Cardiac Disorders: High Cholesterol, Hypertension Neurological History of Neurological Disord: No Reproductive System Hx Reproductive Disorders: No Sexually Transmitted Disease: No HIV/AIDS: No Gastrointestinal History of Gastrointestinal Di: No Musculoskeletal History of Musculoskeletal Dis: Yes Musculoskeletal Disorders: Arthritis Endocrine History of Endocrine Disorders: No HEENT Loss of Vision: Bilateral Hearing Impairment: Denies Cancer History of Cancer: Yes Cancer: Skin, Melanoma Psychosocial History of Psychiatric Problem: No Integumentary History of Skin or Integumenta: No Blood Transfusions History of Blood Disorders: No Adverse Reaction to a Blood Tr: No (N/A) Family Medical History Significant Family History: Hypertension ("my whole family") Review of Systems-General Constitutional: No diaphoresis; malaise, weakness EENTM: No blurred vision, No double vision, No mouth pain, No mouth swelling, No epistaxis Respiratory: No cough; dyspnea on exertion; No hemoptysis; short of breath Cardiovascular: chest pain (with deep breaths); No palpitations Gastrointestinal: abdominal pain; No nausea, No vomiting Genitourinary: No dysuria, No frequency, No hematuria Musculoskeletal: back pain, joint pain, joint swelling, muscle pain, muscle stiffness Skin: hx of skin cancer; No rash Psychiatric/Neurological: Denies Anxiety, Denies Depressed, Denies Seizure, Denies Tremors Other pt denies any hx of abnormal bleeding or bruising Physical Exam-General Problems Physical Exam Vital Signs Vital Signs - First Documented 10/22/19 12:44 Temp 36.7 Pulse 103 Resp 16 B/P (MAP) 126/84 (98) Pulse Ox 95 O2 Delivery Room Air Capillary Refill : Less Than 3 Seconds General Appearance: WD/WN, moderate distress Eyes: Bilateral Eye PERRL, Bilateral Eye EOMI HEENT: pharynx normal; No scleral icterus (R), No scleral icterus (L), No pale conjunctivae (R), No pale conjunctivae (L) Neck: supple; No thyromegaly Respiratory: lungs clear, normal breath sounds, no respiratory distress, no accessory muscle use Cardiovascular: no murmur, tachycardia Gastrointestinal: distended, guarding, rebound, tenderness (diffusely) Back: no CVA tenderness, no vertebral tenderness Extremities: no pedal edema, no calf tenderness, normal capillary refill 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, no motor/sensory deficits, alert, normal mood/affect, oriented x 3 Skin: normal color, warm/dry Lymphatic: no adenopathy (neck, axilla or groin) Data Review Labs Laboratory Tests 10/22/19 12:40: White Blood Count 19.0H, Red Blood Count 5.47, Hemoglobin 16.1, Hematocrit 47, Mean Corpuscular Volume 86, Mean Corpuscular Hemoglobin 29, Mean Corpuscular Hemoglobin Concent 34, Red Cell Distribution Width 17.6H, Platelet Count 226, Mean Platelet Volume 9.3, Neutrophils (%) (Auto) 95H, Lymphocytes (%) (Auto) 3L, Monocytes (%) (Auto) 2, Eosinophils (%) (Auto) 0, Basophils (%) (Auto) 0, Neutrophils # (Auto) 18.1H, Lymphocytes # (Auto) 0.5L, Monocytes # (Auto) 0.5, Eosinophils # (Auto) 0.0, Basophils # (Auto) 0.0, Neutrophils % (Manual) 72, Lymphocytes % (Manual) 5, Monocytes % (Manual) 3, Band Neutrophils 20, Nucleated Red Blood Cells 1, Toxic Granulation 2+, Polychromasia SLIGHT, Poikilocytosis SLIGHT, Anisocytosis SLIGHT, Spherocytes SLIGHT, Sodium Level 133L, Potassium Level 3.9, Chloride Level 95L, Carbon Dioxide Level 21, Anion Gap 17H, Blood Urea Nitrogen 30H, Creatinine 1.65H, Estimat Glomerular Filtration Rate 42, BUN/Creatinine Ratio 18, Glucose Level 310H, Calcium Level 10.7H, Corrected Calcium 10.7H, Total Bilirubin 2.4H, Aspartate Amino Transf (AST/SGOT) 13, Alanine Aminotransferase (ALT/SGPT) 30, Alkaline Phosphatase 85, Troponin I < 0.028, B-Type Natriuretic Peptide 139.0H, Total Protein 7.3, Albumin 4.0, Lipase 11 10/22/19 14:08: Lactic Acid Level 3.70*H Assessment/Plan Assessment/Plan Assessment/Plan Pneumoperitoneum Hx of Melanoma Diverticula Pt has a rigid abdomen and free air on CT of abd/pelvis. He will need to go to OR for diagnostic laparoscopy with possible small bowel resection and all other indicated procedures. He is getting IV ABX, pain control, IV fluids and will get consent. Discussed risks and complications with pt; including but not limited to pain, bleeding, infection, scar, damage to bowel and need for further procedure. All questions answered to his satisfaction. This is emergent and he must go now to the OR. ALEK HERNANDEZ DO Oct 22, 2019 14:45
[2019-10-22] MEDS: LACTATED RINGERS 1,000 ML IV PRN ×2 (14:59→17:02)
[2019-10-22] MEDS ORDERED: HYDROmorphone 2 MG/ML VIAL (DILAUDID) ONE (15:32)
[2019-10-22] MEDS ORDERED: morphine INJ 10 MG/ML 1ML (SYR OR VIAL) ONE (15:32)
[2019-10-22] MEDS ORDERED: PHENYLEPHRINE 100 MCG/ML 10 ML (ANESTHESIA) SYR ONE (17:13)
--- NOTE | 2019-10-22 17:22 | Progress Note-Post Operative ---
Post-Operative Progess Note Surgeon (s)/Palliative Care Specialist (s) Surgeon ALEK HERNANDEZ DO Palliative Care Specialist: Celso Pre-Operative Diagnosis Pneumoperitoneum Post-Operative Diagnosis Perforated sigmoid colon Procedure & Operative Findings Date of Procedure 10/22/19 Procedure Performed/Findings Sigmoid colon resection with end colostomy, Enriquez's procedure Anesthesia Type GET Estimated Blood Loss Estimated blood loss (mL): appx 200ml Specimens/Packing Specimens Removed portion of sigmoid colon ALEK HERNANDEZ DO Oct 22, 2019 17:22
[2019-10-22] MEDS ORDERED: KETOROLAC 15 MG/ML VIAL IV SCH (17:30)
[2019-10-22] MEDS ORDERED: KETOROLAC 30 MG/ML VIAL IVP SCH (17:30)
[2019-10-22] MEDS ORDERED: morphine INJ 4 MG/ML 1 ML (VIAL/SYRINGE) IVP PRN (17:30)
[2019-10-22] MEDS ORDERED: ACETAMINOPHEN 500 MG TAB (TYLENOL) PO SCH (17:30)
[2019-10-22] MEDS ORDERED: ONDANSETRON 4 MG/2 ML (SDV) Z0FRAN IVP PRN ×2 (17:30→18:15)
[2019-10-22] MEDS ORDERED: PROMETHAZINE INJ 25 MG/ML (PHENERGAN) AMP IVP ONE (18:15)
[2019-10-22] MEDS ORDERED: morphine INJ 10 MG/ML 1ML (SYR OR VIAL) IVP ONE (18:15)
[2019-10-22] MEDS ORDERED: MEPERIDINE (DEMEROL) INJ 50 MG/ML IVP ONE (18:15)
[2019-10-22] MEDS ORDERED: HYDROmorphone 2 MG/ML VIAL (DILAUDID) IV ONE (18:15)
--- NOTE | 2019-10-22 18:18 | NUR ---
PT ARRIVES FROM OR AND CONTINUES IN RECOVERY AT THIS TIME.
[2019-10-22] MEDS ORDERED: SUGAMMADEX 500 MG/5 ML VIAL (BRIDION) IV ONE (18:27)
[2019-10-22] MEDS ORDERED: BUPIVACAINE 0.5% 30 ML (SENSORCAINE) VIAL ONE (18:27)
--- NOTE | 2019-10-22 18:55 | NUR ---
REPORT RECEIVED FROM CHARITO TECHNICAL SUPPORT ENGINEER. PT IS RESTING WITH EYES CLOSED BUT AWAKENS TO VERBAL STIMULI AND ANSWERS QUESTIONS APPROPRIATELY. PT DENIES PAIN AT THIS TIME. STATES HE IS "A LITTLE NAUSEATED". THIS RN SPOKE WITH PT SO ANJELICA, HAD SEVERAL QUESTIONS REGARDING SURGERY, DR HERNANDEZ NOTIFIED. MIDLINE ABD INCISION WITH SCANT RED DRAINAGE CIRCLED. PT DENIES ANY OTHER COMPLAINTS. REPEAT LACTIC ACID OF 3.[address] HERNANDEZ. ORDER RECEIVED TO INCREASE IV FLUID TO 200ML/ HR AND REPEAT LACTIC ACID IN 6 HRS. NO ORDER RECEIVED TO RUN UA. CALL LIGHT WITHIN REACH WITH BED IN LOW POSITION. MONITORING CLOSELY.
[2019-10-22] MEDS ORDERED: ONDANSETRON 4 MG/2 ML (SDV) Z0FRAN IV PRN (20:00)
[2019-10-22] MEDS ORDERED: CITA40TA19 PO (20:15)
[2019-10-22] MEDS ORDERED: MYCO500T34 PO (20:15)
[2019-10-22] MEDS ORDERED: LANS15CA5 PO (20:15)
[2019-10-22] MEDS ORDERED: FLUT1DIS27 IH (20:15)
[2019-10-22] MEDS ORDERED: SULF1TAB35 PO (20:15)
[2019-10-22] MEDS ORDERED: METO-351 PO (20:15)
[2019-10-22] MEDS ORDERED: LEVO100T PO (20:15)
[2019-10-22] MEDS ORDERED: PRD50T PO (20:15)
[2019-10-22] MEDS ORDERED: CHLO25TA22 PO (20:15)
[2019-10-22] MEDS ORDERED: ATOR20TA66 PO (20:15)
[2019-10-22] MEDS ORDERED: CETI10TA21 PO (20:15)
[2019-10-22] MEDS: LACTATED RINGERS 1,000 ML IV SCH ×2 (20:40→23:49)
[2019-10-22] MEDS: PIPERACILLIN/TAZOBACTAM (BULK) 4.5 GM in NS (IVPB) 100 ML IV SCH (20:40)
[2019-10-22] MEDS: inSUlin ASPART (NovoLOG) 1 UNIT/0.01 ML (CHARGE PER UNIT) SC SCH (20:49)
[2019-10-23] VITALS (16 sets, daily range): BP systolic 117–154; BP diastolic 70–100
[2019-10-23 00:35] LABS: BASOPHILS % (AUTO) 0 % (0-10); EOSINOPHILS % (AUTO) 0 % (0-10); HEMATOCRIT 39 % (40-54); HEMOGLOBIN 13.1 G/DL (13.3-17.7); LYMPHOCYTES # (AUTO) 0.5 X 10^3 (1.0-4.0); LYMPHOCYTES % (AUTO) 4 % (12-44); MEAN CORPUSCULAR HEMOGLOBIN 29 PG (25-34); MEAN CORPUSCULAR HGB CONC 34 G/DL (32-36); MEAN CORPUSCULAR VOLUME 88 FL (80-99); MEAN PLATELET VOLUME 9.2 FL (7.4-10.4); MONOCYTES # (AUTO) 0.3 X 10^3 (0.0-1.0); MONOCYTES % (AUTO) 2 % (0-12); NEUTROPHILS # (AUTO) 11.9 X 10^3 (1.8-7.8); NEUTROPHILS % (AUTO) 94 % (42-75); PLATELET COUNT 187 10^3/uL (130-400); WHITE BLOOD COUNT 12.6 10^3/uL (4.3-11.0)
[2019-10-23 00:54] LABS: CALCIUM 9.4 MG/DL (8.5-10.1); CREATININE SERUM 1.33 MG/DL (0.60-1.30); MAGNESIUM 2.5 MG/DL (1.6-2.4); PHOSPHORUS 2.5 MG/DL (2.3-4.7); POTASSIUM 3.8 MMOL/L (3.6-5.0)
[2019-10-23] MEDS: LACTATED RINGERS 1,000 ML IV SCH ×3 (01:46→17:36)
[2019-10-23] MEDS: KETOROLAC 15 MG/ML VIAL IV SCH ×4 (03:30→20:59)
[2019-10-23] MEDS: POTASSIUM CL 10MEQ/50ML IVPB 50 ML IV SCH (04:56)
[2019-10-23] MEDS: MAGNESIUM 1 GM/100 ML IVPB 100 ML IV SCH (04:56)
[2019-10-23] MEDS: KCL 20 MEQ TAB (K-DUR) PO SCH (04:57)
[2019-10-23] MEDS: ACETAMINOPHEN 500 MG TAB (TYLENOL) PO SCH ×3 (04:59→21:00)
[2019-10-23] MEDS: PIPERACILLIN/TAZOBACTAM (BULK) 4.5 GM in NS (IVPB) 100 ML IV SCH ×3 (04:59→21:00)
[2019-10-23] MEDS: predniSONE 20 MG TAB PO SCH (06:21)
[2019-10-23] MEDS: LEVOTHYROXINE 100 MCG (LEVOTHROID) TAB PO SCH (06:21)
[2019-10-23] MEDS: inSUlin ASPART (NovoLOG) 1 UNIT/0.01 ML (CHARGE PER UNIT) SC SCH ×5 (06:29→21:00)
--- NOTE | 2019-10-23 06:49 | Anesthesia-General Post-Op ---
General Patient Condition Mental Status/LOC: Same as Preop Cardiovascular: Satisfactory Nausea/Vomiting: Absent Respiratory: Satisfactory Pain: Controlled Complications: Absent Post Op Complications Complications None Follow Up Care/Instructions Patient Instructions None needed. Anesthesia/Patient Condition Patient Condition Patient is doing well, no complaints, stable vital signs, no apparent adverse anesthesia problems. No complications reported per nursing. SHAYY MENON CRNA Oct 23, 2019 06:49
--- NOTE | 2019-10-23 07:06 | Pulmonary Consultation ---
HUAN VALIENTE,MED STUDENT 10/23/19 0706: History of Present Illness History of Present Illness Date Seen by Provider: Oct 23, 2019 Time Seen by Provider: 06:50 Date of Admission History of Present Illness Pt. is a 64yo M s/p sigmoid colon resection with end colostomy. Pt. presented to [facility] ED on 10/21 c/o abdominal pain, n/v and constipation for 2 days. He reported SOB and abdominal pain while taking a deep breath. He is currently receiving immunotherapy for melanoma of the nose, which has been resected. Allergies and Home Medications Allergies Coded Allergies: No Known Drug Allergies (Verified , 10/16/17) Home Medications Ascorbate Calcium 500 Mg Tablet, 500 MG PO DAILY, (Reported) Aspirin 81 Mg Tablet.dr, 81 MG PO DAILY, (Reported) Atorvastatin Calcium 20 Mg Tablet, 20 MG PO DAILY, (Reported) Azilsartan Med/Chlorthalidone 1 Each Tablet, 1 EACH PO DAILY, (Reported) Cetirizine HCl 10 Mg Tablet, 10 MG PO DAILY, (Reported) Chlorthalidone 25 Mg Tablet, 25 MG PO DAILY, (Reported) Citalopram Hydrobromide 40 Mg Tablet, 40 MG PO DAILY, (Reported) Fluticasone/Salmeterol 1 Each Blst.w.dev, 1 EACH IH BID, (Reported) Lansoprazole 15 Mg Capsule.dr, 15 MG PO DAILY, (Reported) Levothyroxine Sodium 100 Mcg Tablet, 100 MCG PO DAILY, (Reported) Metoprolol Succinate 25 Mg Tab.er.24h, 25 MG PO BID, (Reported) Mycophenolate Mofetil 500 Mg Tablet, 1,000 MG PO BID, (Reported) Niacin 1,000 Mg Tablet.er, 1,000 MG PO DAILY, (Reported) [place] 3 Polyunsat Fatty Acids 1,000 Mg Cap, 1,000 MG PO BID, (Reported) Prednisone 50 Mg Tab, 50 MG PO DAILY, (Reported) Simvastatin 40 Mg Tablet, 40 MG PO DAILY, (Reported) Tamsulosin HCl 0.4 Mg Cap.er.24h, 0.4 MG PO DAILY, (Reported) Testosterone Cypionate 200 Mg/1 Ml Vial, 150 MG IM EVERY 2 WEEKS, (Reported) Past Qyusjce-Eshxkc-Fbhxnl Hx Patient Social History Alcohol Use: Occasionally Uses Number of Drinks Today: AA Alcohol Beverage of Choice: Beer Recreational Drug Use: No Smoking Status: Former Smoker Former Smoker, Quit: Mar 26, 1987 Recent Foreign Travel: No Contact w/Someone Who Travel: No Recent Infectious Disease Expo: No Recent Hopitalizations: No Immunizations Up To Date Tetanus Booster (TDap): Unknown PED Vaccines UTD: No Seasonal Allergies Seasonal Allergies: No Past Medical History Surgeries: Yes (CYST FROM RIGHT HAND, INGUINAL HERNIA, NASAL SURGERY-MELANOMA) Vasectomy Respiratory: Yes Sleep Apnea Currently Using CPAP: No Currently Using BIPAP: No Cardiac: Yes High Cholesterol, Hypertension Neurological: No Reproductive Disorders: No Sexually Transmitted Disease: No HIV/AIDS: No Gastrointestinal: No Musculoskeletal: Yes Arthritis Endocrine: No Loss of Vision: Bilateral Hearing Impairment: Denies Cancer: Yes Skin, Melanoma Did You Recieve Any Treatments: Yes What Type of Treatment Did You: Surgical Intervention Psychosocial: No Integumentary: No Blood Disorders: No Adverse Reaction/Blood Tranf: No (N/A) Family Medical History Hypertension ("my whole family") Review of Systems Constitutional: No: Fever, Chills Eyes: No: Vision change ENT: No: Nose discharge, Nose congestion Respiratory: Shortness of breath; No: Cough, Wheezing, Hemoptysis Cardiovascular: No: Chest Pain, Palpitations, Edema Gastrointestinal: Abdominal Pain (with movement), Constipation Genitourinary: No Dysuria, No Frequency, No Hematuria Neurological: No: Weakness, Numbness Sepsis Event Evaluation Height, Weight, BMI Height: 5'11.00" Weight: 194lbs. 0.0oz. 87.393098wd; 29.70 BMI Method: Exam Exam Vital Signs Date Time Temp Pulse Resp B/P (MAP) Pulse Ox O2 Delivery O2 Flow Rate FiO2 10/23/19 06:08 99 19 136/89 (105) 97 Nasal Cannula 3.00 10/23/19 05:00 98 21 136/92 (107) 96 Nasal Cannula 3.00 10/23/19 04:00 36.2 10/23/19 04:00 99 26 147/98 (114) 94 Nasal Cannula 3.00 10/23/19 04:00 Nasal Cannula 3.00 10/23/19 03:00 98 27 139/93 (108) 96 Nasal Cannula 3.00 10/23/19 02:00 97 16 126/87 (100) 96 Nasal Cannula 3.00 10/23/19 01:00 101 29 132/96 (108) 96 Nasal Cannula 3.00 10/23/19 01:00 101 10/23/19 00:00 103 22 139/96 (110) 96 Nasal Cannula 3.00 10/23/19 00:00 37.1 10/23/19 00:00 Nasal Cannula 3.00 10/22/19 23:00 101 34 134/103 (113) 97 Nasal Cannula 3.00 10/22/19 22:00 99 31 126/92 (103) 97 Nasal Cannula 3.00 10/22/19 21:48 94 Nasal Cannula 4.00 10/22/19 21:22 37.4 10/22/19 21:00 99 22 117/91 (100) 96 Nasal Cannula 3.00 10/22/19 20:30 102 27 131/86 (101) 94 Nasal Cannula 3.00 10/22/19 20:00 Nasal Cannula 3.00 10/22/19 20:00 100 35 126/107 (113) 93 Nasal Cannula 3.00 10/22/19 19:50 101 29 117/88 (98) 93 Nasal Cannula 3.00 10/22/19 19:40 101 35 121/86 (98) 94 Nasal Cannula 3.00 10/22/19 19:30 100 22 114/91 (99) 93 Nasal Cannula 3.00 10/22/19 19:20 98 29 121/90 (100) 93 Nasal Cannula 3.00 10/22/19 19:10 96 36 122/86 (98) 93 Nasal Cannula 3.00 10/22/19 19:00 94 10/22/19 19:00 94 34 126/85 (99) 93 Nasal Cannula 3.00 10/22/19 18:55 36.4 20 121/90 (100) 94 Nasal Cannula 3 10/22/19 18:55 Nasal Cannula 3 10/22/19 18:55 High Flow N/C 4.00 10/22/19 18:45 Nasal Cannula 3 10/22/19 18:40 20 120/92 (101) 94 Nasal Cannula 3 10/22/19 18:30 OxyMask 5 10/22/19 18:30 20 120/88 (99) 96 OxyMask 5 10/22/19 18:20 20 120/85 (97) 95 5 10/22/19 18:15 OxyMask 6 10/22/19 18:10 20 115/80 (92) 94 OxyMask 6 10/22/19 18:00 OxyMask 6 10/22/19 18:00 36.3 18 105/81 (89) 97 OxyMask 6 10/22/19 14:53 99 18 111/91 96 Nasal Cannula 2.00 10/22/19 12:44 36.7 103 16 126/84 (98) 95 Room Air I & O 10/23/19 07:00 Intake Total 4220 ml Output Total 770 ml Balance 3450 ml Height & Weight Height: 5'11.00" Weight: 194lbs. 0.0oz. 87.297201al; 29.70 BMI Method: General Appearance: No Apparent Distress, WD/WN HEENT: PERRL/EOMI, Moist Mucous Membranes; No Scleral Icterus (L), No Scleral Icterus (R) Respiratory: Chest Non Tender, Lungs Clear, Normal Breath Sounds, No Accessory Muscle Use, No Respiratory Distress Cardiovascular: Regular Rate, Rhythm, No Edema, No Murmur, Normal Peripheral Pulses Capillary Refill: Less Than 3 Seconds Peripheral Pulses: 2+ Dorsalis Pedis (R), 2+ Left Dors-Pedis (L), 2+ Radial Pulses (R), 2+ Radial Pulses (L) Gastrointestinal: abnormal bowel sounds (decreased), tenderness, other (colostomy in place) Extremity: Normal Inspection, Non Tender, No Calf Tenderness, No Pedal Edema Neurologic/Psychiatric: Alert, Oriented x3, Normal Mood/Affect Skin: Normal Color, Warm/Dry Results Lab Laboratory Tests 10/22/19 12:40 10/23/19 00:27 Assessment/Plan Assessment/Plan Perforated sigmoid colon s/p resection with end colostomy -On Zosyn Pneumonia -On Zosyn -On 3L NC -LR @ 200/hr -COVID pending Lactic acidosis -improved -monitor KIRSTIE -improving -IV fluids Melanoma of the nose s/p resection AUBREE GUEVARA DO 10/23/19 0744: History of Present Illness History of Present Illness Time Seen by Provider: 07:38 Allergies and Home Medications Allergies Coded Allergies: No Known Drug Allergies (Verified , 10/16/17) Home Medications Ascorbate Calcium 500 Mg Tablet, 500 MG PO DAILY, (Reported) Aspirin 81 Mg Tablet.dr, 81 MG PO DAILY, (Reported) Atorvastatin Calcium 20 Mg Tablet, 20 MG PO DAILY, (Reported) Azilsartan Med/Chlorthalidone 1 Each Tablet, 1 EACH PO DAILY, (Reported) Cetirizine HCl 10 Mg Tablet, 10 MG PO DAILY, (Reported) Chlorthalidone 25 Mg Tablet, 25 MG PO DAILY, (Reported) Citalopram Hydrobromide 40 Mg Tablet, 40 MG PO DAILY, (Reported) Fluticasone/Salmeterol 1 Each Blst.w.dev, 1 EACH IH BID, (Reported) Lansoprazole 15 Mg Capsule.dr, 15 MG PO DAILY, (Reported) Levothyroxine Sodium 100 Mcg Tablet, 100 MCG PO DAILY, (Reported) Metoprolol Succinate 25 Mg Tab.er.24h, 25 MG PO BID, (Reported) Mycophenolate Mofetil 500 Mg Tablet, 1,000 MG PO BID, (Reported) Niacin 1,000 Mg Tablet.er, 1,000 MG PO DAILY, (Reported) [place] 3 Polyunsat Fatty Acids 1,000 Mg Cap, 1,000 MG PO BID, (Reported) Prednisone 50 Mg Tab, 50 MG PO DAILY, (Reported) Simvastatin 40 Mg Tablet, 40 MG PO DAILY, (Reported) Tamsulosin HCl 0.4 Mg Cap.er.24h, 0.4 MG PO DAILY, (Reported) Testosterone Cypionate 200 Mg/1 Ml Vial, 150 MG IM EVERY 2 WEEKS, (Reported) Review of Systems Time Seen by Provider: 07:38 Exam Exam General Appearance: No Apparent Distress, WD/WN HEENT: PERRL/EOMI, Moist Mucous Membranes Respiratory: Chest Non Tender, Lungs Clear, Normal Breath Sounds, No Accessory Muscle Use, No Respiratory Distress Cardiovascular: Regular Rate, Rhythm, No Murmur, Normal Peripheral Pulses Assessment/Plan Assessment/Plan Perforated sigmoid colon s/p resection with end colostomy -On Zosyn Pneumonia -continue Zosyn -On 3L NC -LR @ 200/hr -Decrease to 125 -Give IS -COVID pending Bronchiectasis per CT scan -Start Duoneb and advair -Monitor Lactic acidosis -improved -monitor KIRSTIE -improving -IV fluids Melanoma of the nose s/p resection HUAN VALIENTE,ESME STUDENT Oct 23, 2019 07:06 AUBREE GUEVARA DO Oct 23, 2019 07:44
--- NOTE | 2019-10-23 07:42 | OPERATIVE REPORT ---
DATE OF SERVICE: 10/22/2019 PREOPERATIVE DIAGNOSIS: Pneumoperitoneum. POSTOPERATIVE DIAGNOSIS: Perforated sigmoid colon. PROCEDURES PERFORMED: Sigmoid colon resection with end colostomy and Tex's procedure. SURGEON: Alek Lundy DO SASH FINISHER: [place]ano Houston DO. ANESTHESIA: General endotracheal tube. SPECIMEN: Portion of sigmoid colon. BLOOD LOSS: Approximately 200 mL. FLUIDS: Per anesthesia. POSTOPERATIVE CONDITION: Stable. INDICATION FOR PROCEDURE: The patient is a 64-year-old male with a history of melanoma on Opdivo and he came in with some abdominal pain and with actually more shortness of breath. A CT of the chest showed some free air in the abdomen, so CT abdomen was performed, which showed free air and some thickening in the small intestine. He had a rigid abdomen and needed to go to surgery emergently. FINDINGS: I found a lot of purulent fluid in the abdomen with fibrinous material on the small intestine, but what looked like a hole in the sigmoid colon. This may have been from diverticula or it could have been from the Opdivo, unsure. PROCEDURE NOTE: After informed consent was obtained, the patient was brought to the operating room and placed on the operating table in a supine position. He was sterilely prepped and draped in a normal fashion. We started with the midline incision with the #10 blade, carried down through skin and subcutaneous tissue. We started above the umbilicus because it looked like it on CT was all small intestine and made an incision down through the skin into the subcutaneous tissue, then deepened down to the subcutaneous tissue with Bovie electrocautery down to the fascia. Fascia was incised with Bovie electrocautery, bluntly entered the abdomen, swept a finger around and then increased the incision superiorly and inferiorly, noted a foul smell and then found purulent fluid, cultured the fluid and then elected to increase the incision inferiorly to be able to figure out what was going on. Delivered the omentum through the incision and then able to start delivering the small intestine, noted a lot of fibrinous material in the small intestine with some darkening of the edges, foul smell, lot of purulent fluid, suctioned all this out and ran the small bowel, did not find any holes in the small intestine, but when looking down in the pelvis, found a phlegmon and what looked like a hole in the sigmoid colon. Sigmoid colon was also very attached to the bladder. At this point, I then started carefully taking the sigmoid colon off the bladder and then off the left sidewall, found what looked like a hole in the sigmoid colon, so I elected to do a resection, able to get under this phlegmon area and hole on the rectum and then got under the rectum along the mesentery, using blunt dissection with Bovie electrocautery and able to get just around the colon and we used a contour stapler to get around here, then clamped and fired, thereby transecting and then went above this area of phlegmon and the perforation, got under the colon. Again, at the mesentery with blunt dissection and Bovie cautery, placed another contour stapler, clamped and fired, thereby transecting and then took the mesentery down with the LigaSure, clamping, coagulating and transecting in this fashion and completely removing it. At this point, I then freed up along the white line of Toldt and the pericolic gutter to be able to bring this colon up to be able to do an end colostomy. Copiously irrigated with normal saline and obtained hemostasis using Bovie electrocautery. Again, I ran the small intestine. It all looked good. Appendix looked normal. The rest of the colon looked okay. Stomach looked okay, duodenum as well. Liver felt fine, did not see any other obvious pathology. At this point, I then elected to create our colostomy, grabbed the fascia with a Symone pulled medially and then just lateral to the umbilicus and slightly below it, grabbed the skin with a Symone, cut it into a circular incision and then going down through the skin and subcutaneous tissue and then deepened down through the subcutaneous tissue and fat to the fascia. I removed this tissue and then made a cruciate incision in the fascia and then went through the muscle, bluntly spread it into the posterior fascia and then into the abdomen, then placed a Rutledge through here after dilating this with two fingers and then brought the intestine through this opening. At this point, I then brought the omentum down over the intestine and then closed the midline incision with a #1 double stranded PDS suture, one from the superior portion and one from the inferior portion running together and meeting in the middle and tying and then irrigated the incisions and closed the skin with kiley. Placed a 10/10 drape and then matured our colostomy. Cut off the distal portion of the colostomy and tried to do a Zo type maturation at the 3, 6, 9, and 12 o'clock position with 3-0 Vicryl pop-offs and then placed two 4-0 Vicryl sutures in between these, placed two simple sutures to mature the colostomy to the skin. Area was cleaned and dried and a colostomy was placed. The patient tolerated the procedure. Sponge, instrument and needle counts were correct at the end of the case. Dr. Houston assisted on this case helping to make incisions, close incisions, identify anatomy and hold anatomy out of the way. Job ID: [id number] DocumentID: [id number] Dictated Date: 10/22/2019 22:01:05 Bow Maker Gift Wrapping Date: 10/23/2019 07:40:27 Dictated By: ALEK LUNDY DO MTDAicha
--- NOTE | 2019-10-23 07:53 | Diagnostic Imaging Report ---
INDICATION: Bowel perforation. Comparison made with prior examination 10/22/2019. FINDINGS: There are bilateral perihilar infiltrates. There are bilateral pleural effusions, left greater than right. There is no pneumothorax. Mediastinum is unremarkable. There is nasogastric tube which has tip in the body of the stomach. IMPRESSION: Bilateral perihilar infiltrates and bilateral pleural effusions, left greater than right. Dictated by: Dictated on workstation # [id number]
[2019-10-23] MEDS: ADVAIR HFA 115/21 MCG INHALER 8 GM IH SCH ×2 (08:09→18:24)
--- NOTE | 2019-10-23 08:45 | Consultation - Hospitalist ---
HPI History of Present Illness: HPI/Chief Complaint Pt is a 64yoCM with a PMH of HTN and melanoma treated with Opdivo. He presented to the ER due to abdominal pain x 1.5 days. He was found to have a perforated diverticulum and was taken emergently to the OR for resection. He reports feeling well today. No Bm or gas yet. Pain is well controlled. He does report being hungry though. He has been off Opdivo since 01/2019 but has been on high dose steroids and cellcept for complications for it. I am consulted for medical management. Source: patient Date Seen 10/23/19 Attending Physician Luis M Lundy DO PCP Martínez Howard MD Referring Physician Date of Admission Oct 22, 2019 at 17:22 Home Medications & Allergies Home Medications Reviewed patient Home Medication Reconciliation performed by pharmacy medication reconciliations quality systems technician and/or nursing. Patients Allergies have been reviewed. Allergies Allergies Coded Allergies No Known Drug Allergies (Verified10/16/17) Past Mfkgfmr-Nfjjxy-Ijiyqu Hx Past Med/Social Hx: Reviewed Nursing Past Med/Soc Hx Patient Social History Alcohol Use: Occasionally Uses Number of Drinks Today: AA Alcohol Beverage of Choice: Beer Recreational Drug Use: No Smoking Status: Former Smoker Former Smoker, Quit: Mar 26, 1987 Recent Foreign Travel: No Contact w/other who traveled: No Recent Hopitalizations: No Recent Infectious Disease Expo: No Immunizations Up To Date Tetanus Booster (TDap): Unknown Pediatric: No Seasonal Allergies Seasonal Allergies: No Past Medical History Surgeries: Vasectomy Currently Using CPAP: No Currently Using BIPAP: No Cardiac: High Cholesterol, Hypertension Reproductive: No Sexually Transmitted Disease: No HIV/AIDS: No Musculoskeletal: Arthritis Loss of Vision: Bilateral Hearing Impairment: Denies Cancer: Skin, Melanoma Did You Recieve Any Treatments: Yes What Type of Treatment Did You: Surgical Intervention History of Blood Disorders: No Adverse Reaction to Blood Mccullough: No (N/A) Family History Reviewed Nursing Family Hx Hypertension ("my whole family") Review of Systems Constitutional: No chills, No fever EENTM: no symptoms reported Respiratory: no symptoms reported Cardiovascular: no symptoms reported Gastrointestinal: abdominal pain, constipation Genitourinary: no symptoms reported Musculoskeletal: no symptoms reported Skin: no symptoms reported Psychiatric/Neurological: No Symptoms Reported Physical Exam Physical Exam Vital Signs Vital Signs - First Documented 10/22/19 10/22/19 12:44 14:53 Temp 36.7 Pulse 103 Resp 16 B/P (MAP) 126/84 (98) Pulse Ox 95 O2 Delivery Room Air O2 Flow Rate 2.00 Capillary Refill : Less Than 3 SecondsLess Than 3 Seconds Height, Weight, BMI Height: 5'11.00" Weight: 194lbs. 0.0oz. [id number]; 29.70 BMI Method: General Appearance: No Apparent Distress, WD/WN Eyes: Bilateral Eye PERRL, Bilateral Eye EOMI HEENT: PERRL/EOMI, Moist Mucous Membranes, Other (NGT in place) Neck: Normal Inspection, Supple Respiratory: Lungs Clear, No Accessory Muscle Use, No Respiratory Distress Cardiovascular: Regular Rate, Rhythm, No Murmur, Normal Peripheral Pulses Gastrointestinal: Abnormal Bowel Sounds (present but quiet), Distended Genital/Rectal: Other (leigh in place) Extremity: Normal Capillary Refill, No Calf Tenderness, No Pedal Edema Neurologic/Psychiatric: Alert, Oriented x3, Normal Mood/Affect Skin: Normal Color, Warm/Dry Results Results/Procedures Labs Laboratory Tests 10/22/19 12:40 10/23/19 00:27 Patient resulted labs reviewed. Imaging: Reviewed Imaging Report Assessment/Plan Assessment and Plan Assess & Plan/Chief Complaint Bowel Perforation s/p resection and colostomy Pain controlled Management per primary KIRSTIE Lactic acidosis Creatinine 1.33 down from 1.65 Continue IVF Monitor UOP Pneumonia bilateral infiltrates Continue Zosyn Pulm consulted, appreciate recs Elevated blood sugars SSI, likely do to steroids Hypothyroidism Continue synthroid HTN Well controlled melanoma s/p Opdivo treatment Resume home steroids Received stress dose yesterday DVT ppx: Lovenox Clinical Quality Measures DVT/VTE Risk/Contraindication: Risk Factor Score Per Nursin RFS Level Per Nursing on Admit: 4+=Very High GIL STORY MD Oct 23, 2019 08:45
[2019-10-23] MEDS: PANTOPRAZOLE 40 MG (PROTONIX) VIAL IVP SCH (09:06)
[2019-10-23] MEDS: RT-ALBUTEROL/IPRATROPIUM 3 ML (DUONEB) VIAL INH SCH ×4 (10:06→21:13)
--- NOTE | 2019-10-23 11:55 | Progress Note - Surgery ---
Subjective Time Seen by a Provider: 09:06 Subjective/Events-last exam Pt seen and examined, states he feels better than yesterday...does have have some pain at incision. Review of Systems Pulmonary: No Dyspnea, No Cough Cardiovascular: No: Chest Pain Gastrointestinal: Abdominal Pain; No: Nausea, Vomiting Focused Exam Lactate Level 10/22/19 14:08: Lactic Acid Level 3.70*H 10/22/19 18:10: Lactic Acid Level 3.10*H 10/23/19 00:27: Lactic Acid Level 1.90 Objective Exam Vital Signs Date Time Temp Pulse Resp B/P (MAP) Pulse Ox O2 Delivery O2 Flow Rate FiO2 10/23/19 11:00 93 34 137/95 (109) 91 Nasal Cannula 3.00 10/23/19 10:07 97 Nasal Cannula 3.00 10/23/19 10:00 82 141/89 (106) 97 Nasal Cannula 3.00 10/23/19 09:00 87 26 144/89 (107) 97 Nasal Cannula 3.00 10/23/19 08:00 36.3 10/23/19 08:00 Nasal Cannula 3.00 10/23/19 08:00 92 38 140/91 (107) 96 Nasal Cannula 3.00 10/23/19 07:00 90 10/23/19 07:00 95 32 127/89 (102) 96 Nasal Cannula 3.00 10/23/19 06:08 99 19 136/89 (105) 97 Nasal Cannula 3.00 10/23/19 05:00 98 21 136/92 (107) 96 Nasal Cannula 3.00 10/23/19 04:00 36.2 10/23/19 04:00 99 26 147/98 (114) 94 Nasal Cannula 3.00 10/23/19 04:00 Nasal Cannula 3.00 10/23/19 03:00 98 27 139/93 (108) 96 Nasal Cannula 3.00 10/23/19 02:00 97 16 126/87 (100) 96 Nasal Cannula 3.00 10/23/19 01:00 101 29 132/96 (108) 96 Nasal Cannula 3.00 10/23/19 01:00 101 10/23/19 00:00 103 22 139/96 (110) 96 Nasal Cannula 3.00 10/23/19 00:00 37.1 10/23/19 00:00 Nasal Cannula 3.00 10/22/19 23:00 101 34 134/103 (113) 97 Nasal Cannula 3.00 10/22/19 22:00 99 31 126/92 (103) 97 Nasal Cannula 3.00 10/22/19 21:48 94 Nasal Cannula 4.00 10/22/19 21:22 37.4 10/22/19 21:00 99 22 117/91 (100) 96 Nasal Cannula 3.00 10/22/19 20:30 102 27 131/86 (101) 94 Nasal Cannula 3.00 10/22/19 20:00 Nasal Cannula 3.00 10/22/19 20:00 100 35 126/107 (113) 93 Nasal Cannula 3.00 10/22/19 19:50 101 29 117/88 (98) 93 Nasal Cannula 3.00 10/22/19 19:40 101 35 121/86 (98) 94 Nasal Cannula 3.00 10/22/19 19:30 100 22 114/91 (99) 93 Nasal Cannula 3.00 10/22/19 19:20 98 29 121/90 (100) 93 Nasal Cannula 3.00 10/22/19 19:10 96 36 122/86 (98) 93 Nasal Cannula 3.00 10/22/19 19:00 94 10/22/19 19:00 94 34 126/85 (99) 93 Nasal Cannula 3.00 10/22/19 18:55 36.4 20 121/90 (100) 94 Nasal Cannula 3 10/22/19 18:55 Nasal Cannula 3 10/22/19 18:55 High Flow N/C 4.00 10/22/19 18:45 Nasal Cannula 3 10/22/19 18:40 20 120/92 (101) 94 Nasal Cannula 3 10/22/19 18:30 OxyMask 5 10/22/19 18:30 20 120/88 (99) 96 OxyMask 5 10/22/19 18:20 20 120/85 (97) 95 5 10/22/19 18:15 OxyMask 6 10/22/19 18:10 20 115/80 (92) 94 OxyMask 6 10/22/19 18:00 OxyMask 6 10/22/19 18:00 36.3 18 105/81 (89) 97 OxyMask 6 10/22/19 14:53 99 18 111/91 96 Nasal Cannula 2.00 10/22/19 12:44 36.7 103 16 126/84 (98) 95 Room Air I & O 10/23/19 07:00 Intake Total 4220 ml Output Total 770 ml Balance 3450 ml Capillary Refill : Less Than 3 SecondsLess Than 3 Seconds General Appearance: No Apparent Distress, WD/WN HEENT: PERRL/EOMI, Moist Mucous Membranes Respiratory: Lungs Clear, Normal Breath Sounds, No Accessory Muscle Use, No Respiratory Distress Cardiovascular: Regular Rate, Rhythm, No Murmur Peripheral Pulses: 2+ Dorsalis Pedis (R), 2+ Left Dors-Pedis (L), 2+ Radial Pulses (R), 2+ Radial Pulses (L) Gastrointestinal: soft, tenderness, other (colostomy in place, viable) Extremity: No Calf Tenderness, No Pedal Edema Neurologic/Psychiatric: Alert, Oriented x3, Normal Mood/Affect Results Lab Laboratory Tests 10/22/19 12:40: White Blood Count 19.0H, Red Blood Count 5.47, Hemoglobin 16.1, Hematocrit 47, Mean Corpuscular Volume 86, Mean Corpuscular Hemoglobin 29, Mean Corpuscular Hemoglobin Concent 34, Red Cell Distribution Width 17.6H, Platelet Count 226, Mean Platelet Volume 9.3, Neutrophils (%) (Auto) 95H, Lymphocytes (%) (Auto) 3L, Monocytes (%) (Auto) 2, Eosinophils (%) (Auto) 0, Basophils (%) (Auto) 0, Neutrophils # (Auto) 18.1H, Lymphocytes # (Auto) 0.5L, Monocytes # (Auto) 0.5, Eosinophils # (Auto) 0.0, Basophils # (Auto) 0.0, Neutrophils % (Manual) 72, Lymphocytes % (Manual) 5, Monocytes % (Manual) 3, Band Neutrophils 20, Nucleated Red Blood Cells 1, Toxic Granulation 2+, Polychromasia SLIGHT, Poikilocytosis SLIGHT, Anisocytosis SLIGHT, Spherocytes SLIGHT, Sodium Level 133L, Potassium Level 3.9, Chloride Level 95L, Carbon Dioxide Level 21, Anion Gap 17H, Blood Urea Nitrogen 30H, Creatinine 1.65H, Estimat Glomerular Filtration Rate 42, BUN/Creatinine Ratio 18, Glucose Level 310H, Calcium Level 10.7H, Corrected Calcium 10.7H, Total Bilirubin 2.4H, Aspartate Amino Transf (AST/SGOT) 13, Alanine Aminotransferase (ALT/SGPT) 30, Alkaline Phosphatase 85, Troponin I < 0.028, B-Type Natriuretic Peptide 139.0H, Total Protein 7.3, Albumin 4.0, Lipase 11 10/22/19 14:08: Lactic Acid Level 3.70*H 10/22/19 14:50: 10/22/19 18:10: Lactic Acid Level 3.10*H 10/23/19 00:27: White Blood Count 12.6H, Red Blood Count 4.47, Hemoglobin 13.1L, Hematocrit 39L, Mean Corpuscular Volume 88, Mean Corpuscular Hemoglobin 29, Mean Corpuscular Hemoglobin Concent 34, Red Cell Distribution Width 17.0H, Platelet Count 187, Mean Platelet Volume 9.2, Neutrophils (%) (Auto) 94H, Lymphocytes (%) (Auto) 4L, Monocytes (%) (Auto) 2, Eosinophils (%) (Auto) 0, Basophils (%) (Auto) 0, Neutrophils # (Auto) 11.9H, Lymphocytes # (Auto) 0.5L, Monocytes # (Auto) 0.3, Eosinophils # (Auto) 0.0, Basophils # (Auto) 0.0, Sodium Level 136, Potassium Level 3.8, Chloride Level 99, Carbon Dioxide Level 25, Anion Gap 12, Blood Urea Nitrogen 30H, Creatinine 1.33H, Estimat Glomerular Filtration Rate 54, BUN/Creatinine Ratio 23, Glucose Level 215H, Lactic Acid Level 1.90, Calcium Level 9.4, Phosphorus Level 2.5, Magnesium Level 2.5H Microbiology 10/22/19 Gram Stain - Final, Resulted 10/22/19 Anaerobic Culture, Resulted Pending 10/22/19 Surgical Culture, Resulted Pending 10/22/19 Fungal Culture 1, Resulted Pending 10/22/19 MRSA Screen - Final, Complete MRSA not isolated Assessment/Plan Assessment/Plan Assessment/Plan Enriquez's Procedure - secondary to perforation of Sigmoid Colon Restarted pt meds, he is ok to go down to 4th floor. Will start clears, Zofran as needed and encouraged to ambulate and use IS. Clinical Quality Measures DVT/VTE Risk/Contraindication: Risk Factor Score Per Nursin RFS Level Per Nursing on Admit: 4+=Very High ALEK HERNANDEZ DO Oct 23, 2019 11:55
--- NOTE | 2019-10-23 14:11 | NUR ---
THIS NURSE NOTIFIED DR JEZ HERNANDEZ IS OKAY WITH PT GOING TO FOURTH FLOOR. DR STORY SAID PT CAN GO TO FOURTH FLOOR WITHOUT TELE. HOUSE SUP NOTIFIED.
[2019-10-23] MEDS ORDERED: TMSL.4C PO (15:14)
[2019-10-23] MEDS ORDERED: PRD20T PO (15:14)
[2019-10-23] MEDS ORDERED: ASPI-983 PO (15:14)
[2019-10-23] MEDS ORDERED: ASCO250T16 PO (15:14)
--- NOTE | 2019-10-23 15:18 | NUR ---
SPOKE WITH THE PT(I CALLED HIS ROOM PHONE AND HE ALSO HAD A MED LIST ON HIS CHART) AND WENT THRU THE EXT MED HISTORY TO COMPLETE THE MED REC ON 06-29-2019 EDARBYCLOR 40/12.5MG #90 WAS FILLED HOWEVER THE PT SAYS HE IS NO LONGER TAKING AND HE WAS SWITCHED TO CHLORTHALIDONE 25MG ALL MEDS ARE LISTED ON THE EXT MED HISTORY AND THE PT WAS ABLE TO TELL ME HOW/WHEN HE TAKES EACH MED OTC MEDS: ZYRTEC PREVACID VIT C ASPIRIN
--- NOTE | 2019-10-23 15:44 | NUR ---
THIS NURSE CALLED REPORT TO JOYCE ALEJANDRO ON FOURTH FLOOR. PT TAKEN DOWN VIA WHEELCHAIR WITH BELONGINGS. AT BEDSIDE. PT STATES HE DOES NOT NEED ANYTHING.
--- NOTE | 2019-10-23 16:36 | NUR ---
this RN took over patient care at this time. patient alert and orientated on O2 verbalized no additional needs at this time
[2019-10-23] MEDS: ENOXAPARIN 40 MG/0.4 ML (LOVENOX) SYR SC SCH (16:57)
[2019-10-24] MEDS: LACTATED RINGERS 1,000 ML IV SCH ×3 (00:32→17:23)
[2019-10-24] MEDS: RT-ALBUTEROL/IPRATROPIUM 3 ML (DUONEB) VIAL INH SCH ×6 (01:59→22:33)
[2019-10-24 03:05] VITALS: BP 112/71
[2019-10-24] MEDS: KETOROLAC 15 MG/ML VIAL IV SCH ×4 (03:12→21:15)
[2019-10-24] MEDS: PIPERACILLIN/TAZOBACTAM (BULK) 4.5 GM in NS (IVPB) 100 ML IV SCH ×3 (04:59→21:14)
[2019-10-24] MEDS: ACETAMINOPHEN 500 MG TAB (TYLENOL) PO SCH ×3 (05:03→21:15)
[2019-10-24 05:49] LABS: BASOPHILS % (AUTO) 0 % (0-10); EOSINOPHILS % (AUTO) 0 % (0-10); HEMATOCRIT 31 % (40-54); HEMOGLOBIN 10.1 G/DL (13.3-17.7); LYMPHOCYTES # (AUTO) 0.4 X 10^3 (1.0-4.0); LYMPHOCYTES % (AUTO) 4 % (12-44); MEAN CORPUSCULAR HEMOGLOBIN 29 PG (25-34); MEAN CORPUSCULAR HGB CONC 33 G/DL (32-36); MEAN CORPUSCULAR VOLUME 87 FL (80-99); MEAN PLATELET VOLUME 9.3 FL (7.4-10.4); MONOCYTES # (AUTO) 0.2 X 10^3 (0.0-1.0); MONOCYTES % (AUTO) 2 % (0-12); NEUTROPHILS # (AUTO) 9.3 X 10^3 (1.8-7.8); NEUTROPHILS % (AUTO) 94 % (42-75); PLATELET COUNT 146 10^3/uL (130-400); RED CELL DISTRIBUTION WIDTH 16.5 % (10.0-14.5)
[2019-10-24] MEDS: inSUlin ASPART (NovoLOG) 1 UNIT/0.01 ML (CHARGE PER UNIT) SC SCH ×5 (05:51→21:15)
[2019-10-24] MEDS: POTASSIUM CL 10MEQ/50ML IVPB 50 ML IV SCH (05:52)
[2019-10-24] MEDS: KCL 20 MEQ TAB (K-DUR) PO SCH (05:52)
[2019-10-24] MEDS: MAGNESIUM 1 GM/100 ML IVPB 100 ML IV SCH (05:52)
[2019-10-24 05:59] LABS: CHLORIDE 99 MMOL/L (98-107); POTASSIUM 2.9 MMOL/L (3.6-5.0); SODIUM 135 MMOL/L (135-145)
[2019-10-24 06:00] LABS: CALCIUM 9.3 MG/DL (8.5-10.1)
[2019-10-24 06:01] LABS: GLUCOSE 153 MG/DL (70-105)
[2019-10-24 06:02] LABS: CARBON DIOXIDE 25 MMOL/L (21-32)
[2019-10-24 06:04] LABS: GFR ESTIMATED > 60; PHOSPHORUS 2.3 MG/DL (2.3-4.7)
[2019-10-24 06:05] LABS: BUN/CREATININE RATIO 19
[2019-10-24 06:06] LABS: MAGNESIUM 1.9 MG/DL (1.6-2.4)
[2019-10-24] MEDS: predniSONE 20 MG TAB PO SCH (06:35)
[2019-10-24] MEDS: LEVOTHYROXINE 100 MCG (LEVOTHROID) TAB PO SCH (06:35)
[2019-10-24] MEDS: ADVAIR HFA 115/21 MCG INHALER 8 GM IH SCH ×2 (06:43→19:13)
[2019-10-24] MEDS ORDERED: KCL 20 MEQ TAB (K-DUR) PO ONE ×3 (07:30→13:30)
[2019-10-24] MEDS: PANTOPRAZOLE 40 MG (PROTONIX) VIAL IVP SCH (07:48)
[2019-10-24 08:00] VITALS: BP 120/74
--- NOTE | 2019-10-24 11:58 | Progress Note - Surgery ---
Subjective Time Seen by a Provider: 10:15 Subjective/Events-last exam Pt seen and examined, states he is feeling better today; still has some abdominal pain but walking better. Review of Systems General: No Chills, No Night Sweats Gastrointestinal: Abdominal Pain (mostly at incision); No: Nausea, Vomiting Musculoskeletal: back pain (from bed) Focused Exam Lactate Level 10/22/19 14:08: Lactic Acid Level 3.70*H 10/22/19 18:10: Lactic Acid Level 3.10*H 10/23/19 00:27: Lactic Acid Level 1.90 Objective Exam Vital Signs Date Time Temp Pulse Resp B/P (MAP) Pulse Ox O2 Delivery O2 Flow Rate FiO2 10/24/19 10:24 92 Nasal Cannula 3.00 10/24/19 08:10 Nasal Cannula 1.00 10/24/19 08:00 37.0 101 18 120/74 (89) 92 Nasal Cannula 1.00 10/24/19 06:48 92 Nasal Cannula 3.00 10/24/19 06:43 92 Nasal Cannula 3.00 10/24/19 03:20 Nasal Cannula 1.00 10/24/19 03:05 36.8 96 20 112/71 (85) 92 Nasal Cannula 1.00 10/24/19 02:00 92 Nasal Cannula 1.00 10/24/19 00:00 Nasal Cannula 1.00 10/23/19 21:13 93 Nasal Cannula 1.00 10/23/19 20:24 37.4 108 18 119/78 (92) 93 Nasal Cannula 1.00 10/23/19 19:45 Nasal Cannula 1.00 10/23/19 18:24 93 Nasal Cannula 2.00 10/23/19 16:30 36.8 99 20 117/70 (86) 93 Nasal Cannula 1.00 10/23/19 16:00 Nasal Cannula 1.00 10/23/19 14:09 95 Nasal Cannula 1.00 10/23/19 13:00 89 33 125/88 (100) 95 Nasal Cannula 1.00 10/23/19 12:32 92 10/23/19 12:15 Nasal Cannula 1.00 10/23/19 12:00 94 25 154/100 (118) 94 Nasal Cannula 3.00 10/23/19 12:00 36.6 I & O 10/24/19 07:00 Intake Total 2855 ml Output Total 845 ml Balance 2010 ml Capillary Refill : Less Than 3 SecondsLess Than 3 Seconds General Appearance: No Apparent Distress, Obese HEENT: PERRL/EOMI, Moist Mucous Membranes, Other (NGT in place) Respiratory: Lungs Clear, No Accessory Muscle Use, No Respiratory Distress Cardiovascular: Regular Rate, Rhythm, No Murmur Peripheral Pulses: 2+ Dorsalis Pedis (R), 2+ Left Dors-Pedis (L), 2+ Radial Pulses (R), 2+ Radial Pulses (L) Gastrointestinal: soft, tenderness (at incision), other (colostomy in place, viable with mild edema (normal postoperative)) Extremity: No Calf Tenderness, No Pedal Edema Neurologic/Psychiatric: Normal Mood/Affect Results Lab Laboratory Tests 10/23/19 16:13: Glucometer 232H 10/23/19 20:11: Glucometer 253H 10/24/19 05:13: White Blood Count 10.0, Red Blood Count 3.54L, Hemoglobin 10.1#L, Hematocrit 31L , Mean Corpuscular Volume 87, Mean Corpuscular Hemoglobin 29, Mean Corpuscular Hemoglobin Concent 33, Red Cell Distribution Width 16.5H, Platelet Count 146, Mean Platelet Volume 9.3, Neutrophils (%) (Auto) 94H, Lymphocytes (%) (Auto) 4L, Monocytes (%) (Auto) 2, Eosinophils (%) (Auto) 0, Basophils (%) (Auto) 0, Neutrophils # (Auto) 9.3H, Lymphocytes # (Auto) 0.4L, Monocytes # (Auto) 0.2, Eosinophils # (Auto) 0.0, Basophils # (Auto) 0.0, Sodium Level 135, Potassium Level 2.9L, Chloride Level 99, Carbon Dioxide Level 25, Anion Gap 11, Blood Urea Nitrogen 17, Creatinine 0.90, Estimat Glomerular Filtration Rate > 60, BUN/Creatinine Ratio 19, Glucose Level 153H, Calcium Level 9.3, Phosphorus Level 2.3, Magnesium Level 1.9 10/24/19 05:40: Glucometer 165H Microbiology 10/22/19 Gram Stain - Final, Resulted 10/22/19 Anaerobic Culture, Resulted Pending 10/22/19 Surgical Culture - Preliminary, Resulted Escherichia coli Testing In Progress 10/22/19 Fungal Culture 1 - Preliminary, Resulted 10/22/19 MRSA Screen - Final, Complete MRSA not isolated 10/22/19 Blood Culture - Preliminary, Resulted No growth Assessment/Plan Assessment/Plan Assessment/Plan Enriquez's Procedure - secondary to perforation of Sigmoid Colon Restarted Cellcept, will continue clears and advance diet slowly; would wait until there is some flatus in bag. Zofran as needed and encouraged to ambulate and use IS. Clinical Quality Measures DVT/VTE Risk/Contraindication: Risk Factor Score Per Nursin RFS Level Per Nursing on Admit: 4+=Very High ALEK HERNANDEZ DO Oct 24, 2019 11:58
[2019-10-24 12:00] VITALS: BP 125/80
--- NOTE | 2019-10-24 12:35 | Progress Note - Hospitalist ---
Subjective HPI/CC On Admission Date Seen by Provider: Oct 24, 2019 Time Seen by Provider: 12:32 Pt is a 64yoCM with a PMH of HTN and melanoma treated with Opdivo. He presented to the ER due to abdominal pain x 1.5 days. He was found to have a perforated diverticulum and was taken emergently to the OR for resection. He reports feeli ng well today. No Bm or gas yet. Pain is well controlled. He does report being hungry though. He has been off Opdivo since 01/2019 but has been on high dose steroids and cellcept for complications for it. I am consulted for medical management. Subjective/Events-last exam Pt reports doing well. NGT out. Rollins out. Feeling much better. Focused Exam Lactate Level 10/22/19 14:08: Lactic Acid Level 3.70*H 10/22/19 18:10: Lactic Acid Level 3.10*H 10/23/19 00:27: Lactic Acid Level 1.90 Objective Exam Vital Signs Vital Signs Date Time Temp Pulse Resp B/P (MAP) Pulse Ox O2 Delivery O2 Flow Rate FiO2 10/24/19 10:24 92 Nasal Cannula 3.00 10/24/19 08:00 37.0 101 18 120/74 (89) Capillary Refill : Less Than 3 SecondsLess Than 3 Seconds General Appearance: No Apparent Distress, Obese Respiratory: Lungs Clear, No Respiratory Distress Cardiovascular: Regular Rate, Rhythm, No Murmur Neurologic/Psychiatric: Alert, Oriented x3 Results/Procedures Lab Laboratory Tests 10/24/19 05:13 Patient resulted labs reviewed. Imaging: Reviewed Imaging Report Assessment/Plan Assessment and Plan Assess & Plan/Chief Complaint Bowel Perforation s/p resection and colostomy Pain controlled Management per primary KIRSTIE- resolved Lactic acidosis Creatinine back to baseline UOP improving Pneumonia bilateral infiltrates Continue Zosyn Pulm consulted, appreciate recs Elevated blood sugars SSI, likely due to steroids Hypothyroidism Continue synthroid HTN Well controlled melanoma s/p Opdivo treatment Resume home steroids, Cellcept DVT ppx: Lovenox Clinical Quality Measures DVT/VTE Risk/Contraindication: Risk Factor Score Per Nursin RFS Level Per Nursing on Admit: 4+=Very High GIL STORY MD Oct 24, 2019 12:35
[2019-10-24 16:28] VITALS: BP 150/90
[2019-10-24] MEDS: ENOXAPARIN 40 MG/0.4 ML (LOVENOX) SYR SC SCH (17:18)
[2019-10-24 19:49] VITALS: BP 142/86
[2019-10-24] MEDS: MYCOPHENOLATE 1000 MG PO SCH (21:16)
--- NOTE | 2019-10-24 23:04 | NUR ---
RT INFORMED THIS RN THAT OXYGEN WAS APPLIED AT 2L PER NASAL CANNULA.
[2019-10-24 23:55] VITALS: BP_SYST 129; BP_SYST 130; BP_DIAS 75; BP_DIAS 79
[2019-10-25] MEDS: RT-ALBUTEROL/IPRATROPIUM 3 ML (DUONEB) VIAL INH SCH ×6 (03:04→22:18)
[2019-10-25] MEDS: KETOROLAC 15 MG/ML VIAL IV SCH ×4 (03:30→21:10)
[2019-10-25 04:15] VITALS: BP 134/82
[2019-10-25] MEDS: predniSONE 20 MG TAB PO SCH (04:48)
[2019-10-25] MEDS: ACETAMINOPHEN 500 MG TAB (TYLENOL) PO SCH ×3 (04:48→21:18)
[2019-10-25] MEDS: PIPERACILLIN/TAZOBACTAM (BULK) 4.5 GM in NS (IVPB) 100 ML IV SCH ×3 (04:48→21:08)
[2019-10-25] MEDS: LEVOTHYROXINE 100 MCG (LEVOTHROID) TAB PO SCH (04:49)
[2019-10-25 06:02] LABS: BASOPHILS % (AUTO) 0 % (0-10); EOSINOPHILS % (AUTO) 0 % (0-10); HEMATOCRIT 31 % (40-54); HEMOGLOBIN 10.1 G/DL (13.3-17.7); LYMPHOCYTES # (AUTO) 0.3 X 10^3 (1.0-4.0); LYMPHOCYTES % (AUTO) 3 % (12-44); MEAN CORPUSCULAR HEMOGLOBIN 29 PG (25-34); MEAN CORPUSCULAR HGB CONC 33 G/DL (32-36); MEAN CORPUSCULAR VOLUME 88 FL (80-99); MONOCYTES # (AUTO) 0.3 X 10^3 (0.0-1.0); MONOCYTES % (AUTO) 3 % (0-12); NEUTROPHILS # (AUTO) 9.7 X 10^3 (1.8-7.8); NEUTROPHILS % (AUTO) 95 % (42-75); PLATELET COUNT 162 10^3/uL (130-400); RED CELL DISTRIBUTION WIDTH 17.2 % (10.0-14.5); WHITE BLOOD COUNT 10.3 10^3/uL (4.3-11.0)
[2019-10-25 06:16] LABS: CHLORIDE 102 MMOL/L (98-107); POTASSIUM 4.1 MMOL/L (3.6-5.0); SODIUM 135 MMOL/L (135-145)
[2019-10-25 06:17] LABS: CALCIUM 9.3 MG/DL (8.5-10.1); GLUCOSE 167 MG/DL (70-105)
[2019-10-25 06:19] LABS: CARBON DIOXIDE 24 MMOL/L (21-32)
[2019-10-25 06:21] LABS: CREATININE SERUM 1.04 MG/DL (0.60-1.30); GFR ESTIMATED > 60; PHOSPHORUS 1.7 MG/DL (2.3-4.7)
[2019-10-25 06:22] LABS: BUN/CREATININE RATIO 17
[2019-10-25 06:24] LABS: MAGNESIUM 2.1 MG/DL (1.6-2.4)
[2019-10-25] MEDS: POTASSIUM CL 10MEQ/50ML IVPB 50 ML IV SCH (06:27)
[2019-10-25] MEDS: inSUlin ASPART (NovoLOG) 1 UNIT/0.01 ML (CHARGE PER UNIT) SC SCH ×4 (06:27→21:09)
[2019-10-25] MEDS: MAGNESIUM 1 GM/100 ML IVPB 100 ML IV SCH (06:27)
[2019-10-25] MEDS: KCL 20 MEQ TAB (K-DUR) PO SCH (06:27)
[2019-10-25] MEDS: ADVAIR HFA 115/21 MCG INHALER 8 GM IH SCH ×2 (07:20→19:12)
[2019-10-25 07:45] VITALS: BP 155/91
[2019-10-25] MEDS: PANTOPRAZOLE 40 MG (PROTONIX) VIAL IVP SCH (08:56)
[2019-10-25] MEDS: MYCOPHENOLATE 1000 MG PO SCH ×2 (08:56→21:10)
[2019-10-25 11:12] VITALS: BP 142/85
--- NOTE | 2019-10-25 12:11 | Progress Note ---
Subjective Date Seen by a Provider: Oct 25, 2019 Time Seen by a Provider: 11:00 Subjective/Events-last exam Patient seen with Dr. Roe. Patient reports doing well. Denies any abdominal pain as well as no N/V. Tolerating clear liquid diet and ambulating. Reports having lots of flatus and liquid stool in colostomy bag. Focused Exam Lactate Level 10/22/19 14:08: Lactic Acid Level 3.70*H 10/22/19 18:10: Lactic Acid Level 3.10*H 10/23/19 00:27: Lactic Acid Level 1.90 Objective Exam Vital Signs Date Time Temp Pulse Resp B/P (MAP) Pulse Ox O2 Delivery O2 Flow Rate FiO2 10/25/19 11:12 37.1 110 20 142/85 (104) 95 Nasal Cannula 2.00 10/25/19 10:58 95 Nasal Cannula 2.00 10/25/19 09:00 Room Air 10/25/19 07:45 36.8 110 16 155/91 (112) 95 Nasal Cannula 2.00 10/25/19 07:20 95 Nasal Cannula 2.00 10/25/19 04:15 36.8 104 20 134/82 (99) 95 Nasal Cannula 2.00 10/25/19 03:03 93 Nasal Cannula 2.00 10/24/19 23:55 37.0 102 18 130/79 (96) 96 Nasal Cannula 2.00 10/24/19 22:31 85 Room Air 10/24/19 21:00 Room Air 10/24/19 19:49 37.2 95 18 142/86 (104) 94 Room Air 10/24/19 19:16 96 Room Air 10/24/19 19:13 96 Room Air 10/24/19 16:28 37.1 100 20 150/90 (110) 93 Room Air 10/24/19 14:58 92 Nasal Cannula 3.00 I & O 10/25/19 07:00 Intake Total 3080 ml Output Total 900 ml Balance 2180 ml Capillary Refill : Less Than 3 SecondsLess Than 3 Seconds General Appearance: No Apparent Distress, WD/WN Neck: Normal Inspection, Non Tender, Supple Respiratory: Normal Breath Sounds, No Accessory Muscle Use, No Respiratory Distress Cardiovascular: Regular Rate, Rhythm, No Edema Gastrointestinal: normal bowel sounds, non tender, soft, distended, other (Colostomy pink and moist with liquid old bloody stool in colostomy bag) Extremity: Normal Inspection, Normal Range of Motion Neurologic/Psychiatric: Alert, Oriented x3 Skin: Normal Color, Warm/Dry, Other (Midline incision clean with some mild bloody oozing from incision. No redness or erythema noted. No signs of infection.) Results Lab Laboratory Tests 10/24/19 15:44: Glucometer 324H 10/24/19 20:48: Glucometer 186H 10/25/19 05:50: White Blood Count 10.3, Red Blood Count 3.48L, Hemoglobin 10.1L, Hematocrit 31L, Mean Corpuscular Volume 88, Mean Corpuscular Hemoglobin 29, Mean Corpuscular Hemoglobin Concent 33, Red Cell Distribution Width 17.2H, Platelet Count 162, Mean Platelet Volume 9.0, Neutrophils (%) (Auto) 95H, Lymphocytes (%) (Auto) 3L, Monocytes (%) (Auto) 3, Eosinophils (%) (Auto) 0, Basophils (%) (Auto) 0, Neutrophils # (Auto) 9.7H, Lymphocytes # (Auto) 0.3L, Monocytes # (Auto) 0.3, Eosinophils # (Auto) 0.0, Basophils # (Auto) 0.0, Sodium Level 135, Potassium Level 4.1, Chloride Level 102, Carbon Dioxide Level 24, Anion Gap 9, Blood Urea Nitrogen 18, Creatinine 1.04, Estimat Glomerular Filtration Rate > 60, BUN/Creatinine Ratio 17, Glucose Level 167H, Calcium Level 9.3, Phosphorus Level 1.7L, Magnesium Level 2.1 10/25/19 10:29: Glucometer 337H Microbiology 10/22/19 Gram Stain - Final, Resulted 10/22/19 Anaerobic Culture, Resulted Pending 10/22/19 Surgical Culture - Preliminary, Resulted Escherichia coli 10/22/19 Fungal Culture 1 - Preliminary, Resulted 10/22/19 MRSA Screen - Final, Complete MRSA not isolated 10/22/19 Blood Culture - Preliminary, Resulted No growth Assessment/Plan Assessment/Plan Assess & Plan/Chief Complaint Enriquez's Procedure - secondary to perforation of Sigmoid Colon VSS WBC 10.3 Tolerating clear liquids and having bowel function, will advance to dys2 continue pain and nausea meds prn encourage ambulation and IS Clinical Quality Measures DVT/VTE Risk/Contraindication: Risk Factor Score Per Nursin RFS Level Per Nursing on Admit: 4+=Very High JAZMINE COLE EDUCATION RESEARCH ANALYST Oct 25, 2019 12:11
[2019-10-25] MEDS ORDERED: fentaNYL INJECTION 100 MCG/2 ML AMP IVP PRN (13:00)
--- NOTE | 2019-10-25 13:00 | NUR ---
DR VELIZ GAVE ORDERS FOR PT TO HAVE FENTANYL 50 MCG Q1H PRN PAIN AND LORTAB 7.5/325 MG PRN Q4H PRN PAIN
[2019-10-25] MEDS: HYDROcodone/APAP 7.5 MG/325 MG (LORTAB, LORCET PLUS) TABLET PO PRN (13:50)
[2019-10-25 16:00] VITALS: BP 115/77
[2019-10-25] MEDS: ENOXAPARIN 40 MG/0.4 ML (LOVENOX) SYR SC SCH (18:00)
--- NOTE | 2019-10-25 18:34 | NUR ---
PT AND SO REPORTED TO RN THAT HIS GOWN HAD BLOOD ON IT FROM MIDLINE INCISION. PT REPORTS NO PAIN FROM AREA. THE BLOOD IS BRIGHT RED AND JUST SMALL AMOUNT HAD BLED THRU ISLAND DRESSING TO GOWN. PT REPORTED THAT DR VELIZ'S NURSE MONITORING, JAZMINE, HAD CHANGED THE ISLAND DRESSING THIS MORNING WHEN DOING ROUNDS DUE TO BLOOD. THIS RN CHANGED ISLAND DRESSING AND CONTACTED JAZMINE. JAZMINE SAID THAT BLOOD COULD BE FROM PT AMBULATING MORE TODAY IN HALLWAY OR FROM SITTING IN RECLINER. HE ORDERED A CBC FOR THE MORNING AND THAT THERE HAD BEEN BLOOD OOZING WHEN HE CHANGED IT. HE REPORTED IF THERE WAS CHANGES TO CONTACT HIM OR DR VELIZ KNOW.
[2019-10-25 20:00] VITALS: BP 137/81
[2019-10-26 00:10] VITALS: BP 117/70
[2019-10-26] MEDS: RT-ALBUTEROL/IPRATROPIUM 3 ML (DUONEB) VIAL INH SCH ×6 (02:46→22:34)
[2019-10-26] MEDS: KETOROLAC 15 MG/ML VIAL IV SCH ×4 (03:31→21:41)
[2019-10-26 04:30] VITALS: BP 133/81
[2019-10-26 05:13] LABS: BASOPHILS % (AUTO) 0 % (0-10); EOSINOPHILS % (AUTO) 0 % (0-10); HEMATOCRIT 31 % (40-54); HEMOGLOBIN 10.1 G/DL (13.3-17.7); LYMPHOCYTES # (AUTO) 0.7 X 10^3 (1.0-4.0); LYMPHOCYTES % (AUTO) 8 % (12-44); MEAN CORPUSCULAR HEMOGLOBIN 29 PG (25-34); MEAN CORPUSCULAR HGB CONC 33 G/DL (32-36); MEAN CORPUSCULAR VOLUME 88 FL (80-99); MEAN PLATELET VOLUME 8.6 FL (7.4-10.4); MONOCYTES # (AUTO) 0.3 X 10^3 (0.0-1.0); MONOCYTES % (AUTO) 4 % (0-12); NEUTROPHILS # (AUTO) 8.3 X 10^3 (1.8-7.8); NEUTROPHILS % (AUTO) 89 % (42-75); PLATELET COUNT 192 10^3/uL (130-400); RED CELL DISTRIBUTION WIDTH 17.5 % (10.0-14.5); WHITE BLOOD COUNT 9.3 10^3/uL (4.3-11.0)
[2019-10-26] MEDS: ACETAMINOPHEN 500 MG TAB (TYLENOL) PO SCH ×3 (05:15→21:41)
[2019-10-26] MEDS: PIPERACILLIN/TAZOBACTAM (BULK) 4.5 GM in NS (IVPB) 100 ML IV SCH ×3 (05:16→21:41)
[2019-10-26 05:30] LABS: CHLORIDE 102 MMOL/L (98-107); POTASSIUM 3.9 MMOL/L (3.6-5.0); SODIUM 135 MMOL/L (135-145)
[2019-10-26 05:31] LABS: CALCIUM 9.5 MG/DL (8.5-10.1)
[2019-10-26 05:32] LABS: GLUCOSE 112 MG/DL (70-105)
[2019-10-26 05:33] LABS: CARBON DIOXIDE 23 MMOL/L (21-32)
[2019-10-26 05:35] LABS: PHOSPHORUS 1.9 MG/DL (2.3-4.7)
[2019-10-26 05:36] LABS: BUN/CREATININE RATIO 16; CREATININE SERUM 1.04 MG/DL (0.60-1.30); GFR ESTIMATED > 60
[2019-10-26] MEDS: MAGNESIUM 1 GM/100 ML IVPB 100 ML IV SCH (06:03)
[2019-10-26] MEDS: POTASSIUM CL 10MEQ/50ML IVPB 50 ML IV SCH (06:03)
[2019-10-26] MEDS: KCL 20 MEQ TAB (K-DUR) PO SCH (06:04)
[2019-10-26] MEDS: inSUlin ASPART (NovoLOG) 1 UNIT/0.01 ML (CHARGE PER UNIT) SC SCH ×4 (06:04→21:25)
[2019-10-26] MEDS: LEVOTHYROXINE 100 MCG (LEVOTHROID) TAB PO SCH (06:18)
[2019-10-26] MEDS: predniSONE 20 MG TAB PO SCH (06:18)
--- NOTE | 2019-10-26 06:26 | NUR ---
Changed midline dressing this AM. Notified Allen of dressing change.
[2019-10-26] MEDS: ADVAIR HFA 115/21 MCG INHALER 8 GM IH SCH ×2 (07:13→18:41)
[2019-10-26 08:02] VITALS: BP 114/80
[2019-10-26] MEDS: PANTOPRAZOLE 40 MG (PROTONIX) VIAL IVP SCH (08:15)
[2019-10-26] MEDS: MYCOPHENOLATE 1000 MG PO SCH ×2 (08:16→21:42)
[2019-10-26] MEDS: HYDROcodone/APAP 7.5 MG/325 MG (LORTAB, LORCET PLUS) TABLET PO PRN ×2 (09:59→16:35)
--- NOTE | 2019-10-26 10:29 | Progress Note ---
Subjective Date Seen by a Provider: Oct 26, 2019 Time Seen by a Provider: 09:30 Subjective/Events-last exam Patient seen with Dr. Roe. Patient reports doing well. Tolerated diet with no N/V. Denies any abdominal pain. Ambulating. Reports still having some drainage from the incision. Colostomy functioning. Objective Exam Vital Signs Date Time Temp Pulse Resp B/P (MAP) Pulse Ox O2 Delivery O2 Flow Rate FiO2 10/26/19 09:00 Room Air 10/26/19 08:02 36.4 111 16 114/80 (91) 95 Room Air 10/26/19 07:12 90 Nasal Cannula 1.00 10/26/19 04:30 36.7 101 22 133/81 (98) 94 Nasal Cannula 1.00 10/26/19 02:46 94 Nasal Cannula 1.00 10/26/19 00:10 37.0 98 18 117/70 (86) 95 Nasal Cannula 1.00 10/25/19 22:18 93 Room Air 10/25/19 21:00 Room Air 10/25/19 20:00 36.2 103 18 137/81 (99) 94 Room Air 10/25/19 19:10 92 Room Air 10/25/19 16:00 36.7 104 18 115/77 (90) 96 Room Air 10/25/19 14:37 95 Room Air 10/25/19 11:12 37.1 110 20 142/85 (104) 95 Nasal Cannula 2.00 10/25/19 10:58 95 Nasal Cannula 2.00 I & O 10/26/19 07:00 Intake Total 4750 ml Output Total 650 ml Balance 4100 ml Capillary Refill : Less Than 3 SecondsLess Than 3 Seconds General Appearance: No Apparent Distress, WD/WN Neck: Normal Inspection, Non Tender, Supple Respiratory: Normal Breath Sounds, No Accessory Muscle Use, No Respiratory Distress Cardiovascular: Regular Rate, Rhythm, No Edema Gastrointestinal: normal bowel sounds, non tender, soft Extremity: Normal Inspection, Normal Range of Motion Neurologic/Psychiatric: Alert, Oriented x3 Skin: Normal Color, Warm/Dry, Other (Midline abdominal incision with some SS drainage. No redness or erythema. No pain with palpation) Results Lab Laboratory Tests 10/25/19 10:29: Glucometer 337H 10/25/19 16:10: Glucometer 241H 10/25/19 20:28: Glucometer 210H 10/26/19 04:58: White Blood Count 9.3, Red Blood Count 3.47L, Hemoglobin 10.1L, Hematocrit 31L, Mean Corpuscular Volume 88, Mean Corpuscular Hemoglobin 29, Mean Corpuscular Hemoglobin Concent 33, Red Cell Distribution Width 17.5H, Platelet Count 192, Mean Platelet Volume 8.6, Neutrophils (%) (Auto) 89H, Lymphocytes (%) (Auto) 8L, Monocytes (%) (Auto) 4, Eosinophils (%) (Auto) 0, Basophils (%) (Auto) 0, Neutrophils # (Auto) 8.3H, Lymphocytes # (Auto) 0.7L, Monocytes # (Auto) 0.3, Eosinophils # (Auto) 0.0, Basophils # (Auto) 0.0, Sodium Level 135, Potassium Level 3.9, Chloride Level 102, Carbon Dioxide Level 23, Anion Gap 10, Blood Urea Nitrogen 17, Creatinine 1.04, Estimat Glomerular Filtration Rate > 60, BUN/Creatinine Ratio 16, Glucose Level 112H, Calcium Level 9.5, Phosphorus Level 1.9L, Magnesium Level 2.0 Microbiology 10/22/19 Gram Stain - Final, Resulted 10/22/19 Anaerobic Culture - Preliminary, Resulted Bacteroides thetaiotaomicron 10/22/19 Surgical Culture - Final, Resulted Escherichia coli 10/22/19 Fungal Culture 1 - Preliminary, Resulted 10/22/19 MRSA Screen - Final, Complete MRSA not isolated 10/22/19 Blood Culture - Preliminary, Resulted No growth Assessment/Plan Assessment/Plan Assess & Plan/Chief Complaint 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
[2019-10-26 11:52] VITALS: BP 135/83
[2019-10-26 16:00] VITALS: BP 121/82
[2019-10-26] MEDS: ENOXAPARIN 40 MG/0.4 ML (LOVENOX) SYR SC SCH (16:36)
[2019-10-26 19:10] VITALS: BP 136/87
[2019-10-27] VITALS: BP 110/79
[2019-10-27] MEDS: RT-ALBUTEROL/IPRATROPIUM 3 ML (DUONEB) VIAL INH SCH ×6 (02:23→22:49)
[2019-10-27 03:45] VITALS: BP 138/85
[2019-10-27] MEDS: KETOROLAC 15 MG/ML VIAL IV SCH ×5 (03:54→21:30)
[2019-10-27 05:27] LABS: BASOPHILS % (AUTO) 0 % (0-10); EOSINOPHILS % (AUTO) 0 % (0-10); HEMATOCRIT 30 % (40-54); LYMPHOCYTES # (AUTO) 0.9 X 10^3 (1.0-4.0); LYMPHOCYTES % (AUTO) 12 % (12-44); MEAN CORPUSCULAR HEMOGLOBIN 29 PG (25-34); MEAN CORPUSCULAR HGB CONC 33 G/DL (32-36); MEAN CORPUSCULAR VOLUME 88 FL (80-99); MEAN PLATELET VOLUME 9.1 FL (7.4-10.4); MONOCYTES # (AUTO) 0.3 X 10^3 (0.0-1.0); MONOCYTES % (AUTO) 5 % (0-12); NEUTROPHILS # (AUTO) 6.2 X 10^3 (1.8-7.8); NEUTROPHILS % (AUTO) 84 % (42-75); PLATELET COUNT 195 10^3/uL (130-400); RED CELL DISTRIBUTION WIDTH 17.6 % (10.0-14.5); WHITE BLOOD COUNT 7.4 10^3/uL (4.3-11.0)
[2019-10-27 05:40] LABS: CHLORIDE 104 MMOL/L (98-107); POTASSIUM 3.8 MMOL/L (3.6-5.0); SODIUM 137 MMOL/L (135-145)
[2019-10-27 05:41] LABS: CALCIUM 8.9 MG/DL (8.5-10.1)
[2019-10-27 05:42] LABS: GLUCOSE 126 MG/DL (70-105)
[2019-10-27 05:43] LABS: CARBON DIOXIDE 22 MMOL/L (21-32)
[2019-10-27 05:45] LABS: CREATININE SERUM 1.05 MG/DL (0.60-1.30); GFR ESTIMATED > 60; PHOSPHORUS 2.2 MG/DL (2.3-4.7)
[2019-10-27] MEDS: POTASSIUM CL 10MEQ/50ML IVPB 50 ML IV SCH (05:45)
[2019-10-27] MEDS: KCL 20 MEQ TAB (K-DUR) PO SCH (05:45)
[2019-10-27 05:46] LABS: BUN/CREATININE RATIO 17
[2019-10-27] MEDS: inSUlin ASPART (NovoLOG) 1 UNIT/0.01 ML (CHARGE PER UNIT) SC SCH ×4 (05:46→21:27)
[2019-10-27 05:48] LABS: MAGNESIUM 1.9 MG/DL (1.6-2.4)
[2019-10-27] MEDS: MAGNESIUM 1 GM/100 ML IVPB 100 ML IV SCH (05:50)
[2019-10-27] MEDS: ACETAMINOPHEN 500 MG TAB (TYLENOL) PO SCH ×3 (05:58→21:25)
[2019-10-27] MEDS: PIPERACILLIN/TAZOBACTAM (BULK) 4.5 GM in NS (IVPB) 100 ML IV SCH ×2 (05:58→12:48)
[2019-10-27] MEDS: LEVOTHYROXINE 100 MCG (LEVOTHROID) TAB PO SCH (05:58)
[2019-10-27] MEDS: predniSONE 20 MG TAB PO SCH (06:04)
[2019-10-27] MEDS: ADVAIR HFA 115/21 MCG INHALER 8 GM IH SCH ×2 (06:33→20:42)
[2019-10-27 07:47] VITALS: BP 132/83
[2019-10-27] MEDS: PANTOPRAZOLE 40 MG (PROTONIX) VIAL IVP SCH (08:22)
[2019-10-27] MEDS: MYCOPHENOLATE 1000 MG PO SCH ×2 (08:48→21:26)
--- NOTE | 2019-10-27 11:04 | NUR ---
PT'S DRESSING CHANGED. DRAINAGE AT BOTTOM SOAKING THROUGH. DRAINAGE WAS SEROSANGUINEOUS, MODERATE AMOUNT. PT HAD BEEN AMBULATING IN CEE. DRAINAGE SEEPING FROM THE MIDDLE AREA OF THE INCISION AROUND THE NAVEL AREA TO THE BOTTOM OF INCISION. DRESSING NOW CDI.
[2019-10-27 11:57] VITALS: BP 118/76
--- NOTE | 2019-10-27 13:06 | Progress Note - Surgery ---
Subjective Time Seen by a Provider: 12:42 Subjective/Events-last exam Pt seen and examined, tolerating diet with good ostomy output. Minimal drainage from midline incision. Review of Systems General: No Chills, No Night Sweats Cardiovascular: No: Chest Pain, Palpitations Gastrointestinal: Abdominal Pain; No: Nausea, Vomiting Objective Exam Vital Signs Date Time Temp Pulse Resp B/P (MAP) Pulse Ox O2 Delivery O2 Flow Rate FiO2 10/27/19 11:57 36.2 102 18 118/76 (90) 97 Room Air 10/27/19 10:02 Room Air 93.00 10/27/19 09:30 96 Room Air 10/27/19 07:47 36.9 104 16 132/83 (99) 96 Room Air 10/27/19 06:35 Room Air 10/27/19 06:33 Room Air 94.00 10/27/19 03:45 36.6 102 20 138/85 (102) 95 Room Air 10/27/19 02:24 93 Room Air 10/27/19 00:00 36.3 104 20 110/79 (89) 94 Room Air 10/26/19 22:36 95 Room Air 10/26/19 21:20 Room Air 10/26/19 19:10 37.0 120 20 136/87 (103) 95 Room Air 10/26/19 18:38 91 Room Air 10/26/19 16:00 36.8 108 18 121/82 (95) 97 Room Air 10/26/19 14:39 95 Room Air I & O 10/27/19 07:00 Intake Total 2755 ml Output Total 100 ml Balance 2655 ml Capillary Refill : Less Than 3 SecondsLess Than 3 Seconds General Appearance: No Apparent Distress, WD/WN HEENT: PERRL/EOMI, Moist Mucous Membranes Respiratory: Normal Breath Sounds, No Accessory Muscle Use, No Respiratory Dis tress Cardiovascular: Regular Rate, Rhythm Peripheral Pulses: 2+ Dorsalis Pedis (R), 2+ Left Dors-Pedis (L), 2+ Radial Pulses (R), 2+ Radial Pulses (L) Gastrointestinal: non tender, soft, other (ostomy is functioning, still slightly purple and edematous) Results Lab Laboratory Tests 10/26/19 16:02: Glucometer 241H 10/26/19 21:11: Glucometer 101 10/27/19 05:10: White Blood Count 7.4, Red Blood Count 3.43L, Hemoglobin 10.0L, Hematocrit 30L, Mean Corpuscular Volume 88, Mean Corpuscular Hemoglobin 29, Mean Corpuscular Hemoglobin Concent 33, Red Cell Distribution Width 17.6H, Platelet Count 195, Mean Platelet Volume 9.1, Neutrophils (%) (Auto) 84H, Lymphocytes (%) (Auto) 12, Monocytes (%) (Auto) 5, Eosinophils (%) (Auto) 0, Basophils (%) (Auto) 0, Neutrophils # (Auto) 6.2, Lymphocytes # (Auto) 0.9L, Monocytes # (Auto) 0.3, Eosinophils # (Auto) 0.0, Basophils # (Auto) 0.0, Sodium Level 137, Potassium Level 3.8, Chloride Level 104, Carbon Dioxide Level 22, Anion Gap 11, Blood Urea Nitrogen 18, Creatinine 1.05, Estimat Glomerular Filtration Rate > 60, BUN/Creatinine Ratio 17, Glucose Level 126H, Calcium Level 8.9, Phosphorus Level 2.2L, Magnesium Level 1.9 10/27/19 10:57: Glucometer 229H Microbiology 10/22/19 Gram Stain - Final, Resulted 10/22/19 Anaerobic Culture - Preliminary, Resulted Bacteroides thetaiotaomicron 10/22/19 Surgical Culture - Final, Resulted Escherichia coli 10/22/19 Fungal Culture 1 - Preliminary, Resulted 10/22/19 MRSA Screen - Final, Complete MRSA not isolated 10/22/19 Blood Culture - Preliminary, Resulted No growth Assessment/Plan Assessment/Plan Assessment/Plan 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 Encouraged to ambulate and use IS. Clinical Quality Measures DVT/VTE Risk/Contraindication: Risk Factor Score Per Nursin RFS Level Per Nursing on Admit: 4+=Very High ALEK HERNANDEZ DO Oct 27, 2019 13:06
--- NOTE | 2019-10-27 14:21 | NUR ---
CM/SS visited with patient for social service consult. Plan: The patient will go with new home health at time of discharge. Home Health: CM/SS provided the patient with a patient preference form. He chose [facility]. CM/SS contacted [facility] from the agency and made referral. CM/SS faxed records and will fax home health orders when available. The patient's primary care physician was Anita; however, he recently retired. The patient reports he is set up with [facility] and sees Dr. Chen. The patient reports that he is in the but is staying with his friend for a while. The patient states that he will have the home health come to her house where he is staying temporarily. He reports that he does not have any additional needs at this time. CM/SS will continue to follow for discharge planning.
[2019-10-27 16:00] VITALS: BP 139/85
[2019-10-27] MEDS: ENOXAPARIN 40 MG/0.4 ML (LOVENOX) SYR SC SCH (17:30)
[2019-10-27 20:00] VITALS: BP 122/79
[2019-10-28 00:30] VITALS: BP 143/77
[2019-10-28] MEDS: HYDROcodone/APAP 7.5 MG/325 MG (LORTAB, LORCET PLUS) TABLET PO PRN ×2 (00:51→06:30)
[2019-10-28] MEDS: RT-ALBUTEROL/IPRATROPIUM 3 ML (DUONEB) VIAL INH SCH ×4 (01:17→15:22)
[2019-10-28 04:15] VITALS: BP 132/78
[2019-10-28] MEDS: ACETAMINOPHEN 500 MG TAB (TYLENOL) PO SCH ×2 (04:26→13:21)
[2019-10-28 05:19] LABS: BASOPHILS % (AUTO) 0 % (0-10); EOSINOPHILS % (AUTO) 0 % (0-10); HEMATOCRIT 30 % (40-54); LYMPHOCYTES # (AUTO) 0.9 X 10^3 (1.0-4.0); LYMPHOCYTES % (AUTO) 11 % (12-44); MEAN CORPUSCULAR HEMOGLOBIN 29 PG (25-34); MEAN CORPUSCULAR HGB CONC 33 G/DL (32-36); MEAN CORPUSCULAR VOLUME 88 FL (80-99); MEAN PLATELET VOLUME 9.2 FL (7.4-10.4); MONOCYTES # (AUTO) 0.3 X 10^3 (0.0-1.0); MONOCYTES % (AUTO) 4 % (0-12); NEUTROPHILS # (AUTO) 6.6 X 10^3 (1.8-7.8); NEUTROPHILS % (AUTO) 85 % (42-75); PLATELET COUNT 224 10^3/uL (130-400); RED CELL DISTRIBUTION WIDTH 17.7 % (10.0-14.5); WHITE BLOOD COUNT 7.8 10^3/uL (4.3-11.0)
[2019-10-28 05:55] LABS: ATYPICAL LYMPHOCYTES 2 %; LYMPHOCYTES % (MANUAL) 13 %; MONOCYTES % (MANUAL) 2 %; NEUTROPHILS % (MANUAL) 80 %; REACTIVE LYMPHOCYTES 3 %
[2019-10-28 05:56] LABS: ANISOCYTOSIS SLIGHT; HYPOCHROMASIA MODERATE; POIKILOCYTOSIS SLIGHT
[2019-10-28 05:59] LABS: BUN/CREATININE RATIO 15; CALCIUM 8.7 MG/DL (8.5-10.1); CARBON DIOXIDE 23 MMOL/L (21-32); CHLORIDE 104 MMOL/L (98-107); CREATININE SERUM 0.96 MG/DL (0.60-1.30); GFR ESTIMATED > 60; GLUCOSE 110 MG/DL (70-105); MAGNESIUM 1.9 MG/DL (1.6-2.4); PHOSPHORUS 2.7 MG/DL (2.3-4.7); POTASSIUM 3.5 MMOL/L (3.6-5.0); SODIUM 138 MMOL/L (135-145)
[2019-10-28] MEDS: MAGNESIUM 1 GM/100 ML IVPB 100 ML IV SCH (06:03)
[2019-10-28] MEDS: inSUlin ASPART (NovoLOG) 1 UNIT/0.01 ML (CHARGE PER UNIT) SC SCH ×2 (06:03→11:39)
[2019-10-28] MEDS: POTASSIUM CL 10MEQ/50ML IVPB 50 ML IV SCH (06:03)
[2019-10-28] MEDS: KCL 20 MEQ TAB (K-DUR) PO SCH (06:03)
[2019-10-28] MEDS ORDERED: KCL 20 MEQ TAB (K-DUR) PO ONE (06:15)
[2019-10-28] MEDS: LEVOTHYROXINE 100 MCG (LEVOTHROID) TAB PO SCH (06:30)
[2019-10-28] MEDS: predniSONE 20 MG TAB PO SCH (06:30)
[2019-10-28] MEDS: ADVAIR HFA 115/21 MCG INHALER 8 GM IH SCH (06:47)
[2019-10-28] MEDS: PANTOPRAZOLE 40 MG (PROTONIX) VIAL IVP SCH (07:18)
[2019-10-28] MEDS: MYCOPHENOLATE 1000 MG PO SCH (07:20)
[2019-10-28 08:00] VITALS: BP 118/79
--- NOTE | 2019-10-28 08:43 | Progress Note - Surgery ---
ARNIE RICHARD MED STUDENT 10/28/19 0843: Subjective Date Seen by a Provider: Oct 28, 2019 Time Seen by a Provider: 08:25 Subjective/Events-last exam Patient states he is able to walk around and get up unassisted with only minor pain surrounding his incision site. He reports he is in no pain and is not using his walker as much. Colostomy bag shows some fecal matter which patient states is from early this morning. Objective Exam Vital Signs Date Time Temp Pulse Resp B/P (MAP) Pulse Ox O2 Delivery O2 Flow Rate FiO2 10/28/19 06:47 Room Air 10/28/19 06:47 98 Room Air 10/28/19 04:15 36.5 80 18 132/78 (96) 97 Room Air 10/28/19 01:17 Room Air 10/28/19 00:30 36.2 99 18 143/77 (99) 95 Room Air 10/27/19 22:49 97 Room Air 10/27/19 20:50 Room Air 10/27/19 20:43 98 Room Air 10/27/19 20:00 36.4 95 20 122/79 (93) 96 Room Air 10/27/19 16:00 36.2 107 18 139/85 (103) 96 Room Air 10/27/19 15:03 97 Room Air 10/27/19 11:57 36.2 102 18 118/76 (90) 97 Room Air 10/27/19 10:02 Room Air 93.00 10/27/19 09:30 96 Room Air I & O 10/28/19 07:00 Intake Total 2240 ml Output Total 725 ml Balance 1515 ml Capillary Refill : Less Than 3 SecondsLess Than 3 Seconds General Appearance: No Apparent Distress, WD/WN Respiratory: Normal Breath Sounds, No Accessory Muscle Use, No Respiratory Distress Cardiovascular: Regular Rate, Rhythm, Normal Peripheral Pulses Peripheral Pulses: 2+ Carotid (R), 2+ Carotid (L), 2+ Dorsalis Pedis (R), 2+ Left Dors-Pedis (L), 2+ Radial Pulses (R), 2+ Radial Pulses (L) Gastrointestinal: soft, tenderness (upon standing, states it only occurs when midline incision is stretched), other (ostomy is functioning, still slightly purple and edematous) Neurologic/Psychiatric: Alert, Normal Mood/Affect, Other (states he is seeing small bugs and shadows in the room that others in the room cannot identify, believes they might be hallucinations) Results Lab Laboratory Tests 10/27/19 10:57: Glucometer 229H 10/27/19 15:55: Glucometer 212H 10/27/19 20:19: Glucometer 117H 10/28/19 04:50: White Blood Count 7.8, Red Blood Count 3.45L, Hemoglobin 10.0L, Hematocrit 30L, Mean Corpuscular Volume 88, Mean Corpuscular Hemoglobin 29, Mean Corpuscular Hemoglobin Concent 33, Red Cell Distribution Width 17.7H, Platelet Count 224, Mean Platelet Volume 9.2, Neutrophils (%) (Auto) 85H, Lymphocytes (%) (Auto) 11L , Monocytes (%) (Auto) 4, Eosinophils (%) (Auto) 0, Basophils (%) (Auto) 0, Neutrophils # (Auto) 6.6, Lymphocytes # (Auto) 0.9L, Monocytes # (Auto) 0.3, Eosinophils # (Auto) 0.0, Basophils # (Auto) 0.0, Neutrophils % (Manual) 80, Lymphocytes % (Manual) 13, Monocytes % (Manual) 2, Atypical Lymphocytes 2, Reactive Lymphocytes 3, Hypochromasia MODERATE, Poikilocytosis SLIGHT, Anisocytosis SLIGHT, Sodium Level 138, Potassium Level 3.5L, Chloride Level 104, Carbon Dioxide Level 23, Anion Gap 11, Blood Urea Nitrogen 14, Creatinine 0.96, Estimat Glomerular Filtration Rate > 60, BUN/Creatinine Ratio 15, Glucose Level 110H, Calcium Level 8.7, Phosphorus Level 2.7, Magnesium Level 1.9 Microbiology 10/22/19 Gram Stain - Final, Resulted 10/22/19 Anaerobic Culture - Preliminary, Resulted Bacteroides thetaiotaomicron 10/22/19 Surgical Culture - Final, Resulted Escherichia coli 10/22/19 Fungal Culture 1 - Preliminary, Resulted YEAST 10/22/19 MRSA Screen - Final, Complete MRSA not isolated 10/22/19 Blood Culture - Final, Complete No growth Assessment/Plan Assessment/Plan Assessment/Plan 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 Clinical Quality Measures DVT/VTE Risk/Contraindication: Risk Factor Score Per Nursin RFS Level Per Nursing on Admit: 4+=Very High LUIS M HERNANDEZ DO 10/28/19 1620: Subjective Time Seen by a Provider: 12:05 Subjective/Events-last exam Pt seen and examined. Review of Systems Cardiovascular: No: Chest Pain, Palpitations Gastrointestinal: No: Nausea, Vomiting Objective Exam General Appearance: No Apparent Distress Respiratory: Normal Breath Sounds, No Accessory Muscle Use, No Respiratory Distress Cardiovascular: Regular Rate, Rhythm Gastrointestinal: other (ostomy is functioning, still slightly purple and less edematous) Assessment/Plan Assessment/Plan Assessment/Plan D/C IV and D/C home Supervisory-Addendum Brief Verification & Attestation Participated in pt care: history, MDM, physical Personally performed: exam, history, MDM Care discussed with: Medical Student Procedures: n/a Verification and Attestation of Medical Student E/M Service A medical student performed and documented this service. I then reviewed and verified all information documented by the medical student and made modifications to such information, when appropriate. I personally performed a physical exam, medical decision making and then discussed any differences between the notes and made revisions as necessary to create one note. Luis M Hernandez , 10/28/19 , 16:20 ARNIE RICHARD MED STUDENT Oct 28, 2019 08:43 LUIS M HERNANDEZ DO Oct 28, 2019 16:20
[2019-10-28 12:00] VITALS: BP 142/92
--- NOTE | 2019-10-28 14:22 | NUR ---
CALLED DR. HERNANDEZ TO REMIND HIM TO DO DISCHARGE ON 410. Addendum: 10/28/19 at 1543 by YASMINE CERDA RN DR. HERNANDEZ WANTED TO KNOW IF HOSPITALIST HAD DONE THEIR PART. DR. YU NOT INHOUSE. CALLED AND LEFT MESSAGE FOR HIM TO PLEASE COMPLETE ANY PART OF DISCHARGE THAT MIGHT BE UNDER HIS PURVIEW.
--- NOTE | 2019-10-28 14:30 | NUR ---
SPOKE WITH [employer] [facility] WHO IS ALSO WAITING FOR ORDERS FROM DR. HERNANDEZ SO THAT THEY CAN SET UP HOME HEALTH VISITS FOR PT. THEY STATED THAT THEY TOO HAD LEFT A MESSAGE FOR DR. HERNANDEZ TO PLEASE PUT IN ORDERS.
--- NOTE | 2019-10-28 15:10 | NUR ---
NO ANSWERE YET SPOKE TO MARTHA ABOUT ISSUE AND SHE PUT IN FURTHER MESSAGE FROM MY PHONE FOR DR. HERNANDEZ.
--- NOTE | 2019-10-28 15:46 | NUR ---
NO ORDERS, NO MESSAGE YET FROM DR. HERNANDEZ
--- NOTE | 2019-10-28 16:03 | NUR ---
putting in orders now
[2019-10-28] MEDS ORDERED: TRM50T PO (16:11)
--- NOTE | 2019-10-28 16:13 | Discharge Inst-Surgical ---
Discharge Inst-Surgical Depart Medication/Instructions New, Converted or Re-Newed RX: Call to Patients Pharmacy Patient Instructions Follow up Appt: Make appointment for 1 week. [phone] Instructions: No lifting greater than 20 pounds. No strenuous activity. May shower in 24 hours, no tub bath or soaking. Use incentive spirometer at home as directed. No Smoking Skin/Wound Care: May remove bandages in am. You need to leave the Dermabond on incision it will fall off on it's own. Symptoms to Report: Appetite Changes, Extremity Discoloration, Numbness/Tingling, Swelling Increased, Bleeding Excessive, Eyesight Changes, Pain Increased, Urine Color Change, Constipation(Persistent), Fever over 101 degree F, Pain/Pressure in chest, Urinating Difficulty, Cough Up/Vomit Blood, Heart Beat Irreg/Pounding, Pain/Pressure in jaw, Cramps in feet or legs, Lightheadedness, Pain/Pressure in shoulder, Diarrhea(Persistent), Memory Changes Suddenly, Questions/Concerns, Weight gain consecutive days, Dizziness/Fainting, Nausea/Vomiting, Shortness of Breath, Weight gain over 2 pounds If questions or concerns contact your physician Or seek help at emergency department. Activity Activity as Tolerated: Yes Activity Instructions: Avoid Stress to Incision Driving Instructions: No Driving/Refer to Dr. Sen Discharge Diet: No Restrictions Diet After 24 Hours: Clear Liquid if Nauseous If Any Problems/Questions/Issu: Contact Your Physician, Go to Emergency Room Skin/Wound Care Infection Signs and Symptoms: Increased Redness, Foul Odor of Wound, Increased Drainage, Skin Itchy or Has a Rash, Increased Swelling, Temperature Above 101 F Wound Care Comment: Colostomy teaching Bathing Instructions: ALEK Guzmán DO Oct 28, 2019 16:13
--- NOTE | 2019-10-28 16:18 | D/C HH Face to Face Order ---
D/C Face to Face Orders Reconcile Patient Problems Problems Reviewed?: Yes Instructions for Patient Via [employer], Patient Instructions/FollowUp: Follow up in one week, call for appointment [phone] Physician to follow Patient: Weekly Discharge Diet for Home: Regular Diet Patient Data-Allergies,Ht & Wt Patient Allergies: Coded Allergies: No Known Drug Allergies (Verified , 10/16/17) Height (Feet): 5 Height (Inches): 11.00 Weight (Pounds): 194 Weight (Ounces): 0.0 Home Health Need/Face to Face Date of Face to Face: Oct 28, 2019 Clinical Findings: Generalized weakness and fatigue, Muscle weakness, Other- list in note (Colostomy teaching) I have seen Pt [id number]: Yes Discharged To: Home Diagnosis/Conditions: Colon perforation Melanoma Pulmonary inflammation due to Chemo medications Patient is Homebound due to: Muscle weakness, Shortness of breath/distress Homebound Status Due to the above stated illness, injury or surgical procedure (medical condition or diagnosis) and associated clinical findings, the patient is homebound because of his/her inability to leave home except with aid of a supportive device and/or person AND leaving the home requires a considerable and taxing effort or is medically contraindicated. Pt req the following assistanc: Aid of another person Home Health Nursing Orders Home Health Services Order: Wound Care-Eval/Treat, Other (Colostomy teaching) Certify Stmt I certify that this patient is under my care and that I, a nurse practitioner or a physician; a assistant athletic trainer working with me, had a face to face encounter that - meets the physician face to face encounter requirements with this patient as dated. ALEK HERNANDEZ DO Oct 28, 2019 16:17
--- NOTE | 2019-10-28 16:43 | NUR ---
CM/SS finalized discharge. Plan: Patient will return home with [facility] health. CM/SS contacted [facility] to verify that patient was discharging today. CM/SS faxed finalized home health orders to agency. No further needs at this time.
== END 2019-10-28 16:42 | disposition home health service (06) | DRG 329 ==
LOC: EDUNIT# 11:34 → ER 11:35 → SDC 14:20 → ICU 17:22 → 4TH 10-23 16:07
PROVIDERS: ADMIT Surgery; ATTEND Surgery
PROC: 0D1N0Z4 Bypass Sigmoid Colon to Cutaneous, Open Approach (ICD-10-PCS; 2019-10-22)
PROC: 0DBN0ZZ Excision of Sigmoid Colon, Open Approach (ICD-10-PCS; principal; 2019-10-22 15:25)
DX: K57.20 Diverticulitis of large intestine with perforation and abscess without bleeding (principal); J18.9 Pneumonia, unspecified organism; E87.2 Acidosis; N17.9 Acute kidney failure, unspecified; C43.31 Malignant melanoma of nose; Z79.899 Other long term (current) drug therapy; Z87.891 Personal history of nicotine dependence; G47.30 Sleep apnea, unspecified; I10 Essential (primary) hypertension; E78.00 Pure hypercholesterolemia, unspecified; M19.91 Primary osteoarthritis, unspecified site; R73.9 Hyperglycemia, unspecified; T38.0X5A Adverse effect of glucocorticoids and synthetic analogues, initial encounter; E03.9 Hypothyroidism, unspecified
CPT/HCPCS: 36415; 71045; 71250; 74176; 80048; 80053; 82962; 83605; 83690; 83735; 83880; 84100; 84484; 85007; 85025; 85027; 87040; 87070; 87075; 87076; 87077; 87081; 87101; 87106; 87181; 87184; 87185; 87186; 87205; 87635; 88307; 93005; 94640; 94664; 94760; 96361; 96374; 96375

== ENCOUNTER 2019-11-05 20:41 | Inpatient (IN) | payer OTHER ==
[~2019-11-05] VITALS: Ht 177.8 cm; Wt 91.2 kg
[~2019-11-05 20:41] MED LIST changes: +ASCO250T16 PO; +ASPI-983 PO; +ATOR20TA66 PO; +CETI10TA21 PO; +CHLO25TA22 PO; +CITA40TA19 PO; +FLUT1DIS27 IH; +LANS15CA5 PO; +LEVO100T PO; +METO-351 PO; +MYCO500T34 PO; +PRD20T PO; +PRD50T PO; +SULF1TAB35 PO; +TMSL.4C PO; +TRM50T PO
[2019-11-05] MEDS ORDERED: NS IV 1000 ML 1,000 ML IV ONE (21:15)
[2019-11-05 21:40] LABS: BASOPHILS % (AUTO) 0 % (0-10); EOSINOPHILS % (AUTO) 0 % (0-10); HEMATOCRIT 35 % (40-54); HEMOGLOBIN 11.8 G/DL (13.3-17.7); LYMPHOCYTES # (AUTO) 0.4 X 10^3 (1.0-4.0); LYMPHOCYTES % (AUTO) 2 % (12-44); MEAN CORPUSCULAR HEMOGLOBIN 28 PG (25-34); MEAN CORPUSCULAR HGB CONC 34 G/DL (32-36); MEAN CORPUSCULAR VOLUME 84 FL (80-99); MEAN PLATELET VOLUME 9.3 FL (7.4-10.4); MONOCYTES # (AUTO) 0.2 X 10^3 (0.0-1.0); MONOCYTES % (AUTO) 1 % (0-12); NEUTROPHILS # (AUTO) 20.4 X 10^3 (1.8-7.8); NEUTROPHILS % (AUTO) 97 % (42-75); PLATELET COUNT 497 10^3/uL (130-400); RED CELL DISTRIBUTION WIDTH 16.9 % (10.0-14.5); WHITE BLOOD COUNT 21.1 10^3/uL (4.3-11.0)
[2019-11-05] MEDS ORDERED: PIPERACILLIN SODIUM/TAZOBACTAM 4.5 GM in NS (IVPB) 100 ML IV ONE (21:45)
[2019-11-05] MEDS ORDERED: VANCOMYCIN INJECTION 1,000 MG in NS (IVPB) 250 ML IV ONE ×2 (21:45→22:00)
--- NOTE | 2019-11-05 21:49 | Diagnostic Imaging Report ---
INDICATION: Fever. COMPARISON: 10/23/2019. EXAMINATION: Single view of the chest was obtained. FINDINGS: There is persistent but decreased bilateral pulmonary infiltrates. There is some improved expansion of both lungs. Trace bilateral pleural effusions are present. The heart remains enlarged. There is no pneumothorax. Osseous structures are normal. IMPRESSION: Persistent but decreased bilateral pulmonary infiltrates with improved expansion of both lungs. Dictated by: Dictated on workstation # [id number]
--- NOTE | 2019-11-05 21:57 | ED Respiratory ---
General Chief Complaint: Fever-Adult/Adol Stated Complaint: S/P SX, FEVER, INCISION SITE INFECTED Source: patient, old records History of Present Illness Date Seen by Provider: Nov 05, 2019 Time Seen by Provider: 21:15 Initial Comments PT ARRIVES VIA POV FROM HOME STATES HE BEGAN RUNNING FEVER THIS EVENING OF 102.5 AND FEELING SHORT OF BREATH PT DOES NOT WEAR HOME O2--INITIAL O2 SAT WAS 87% ON ARRIVAL C/O MILD NON-PRODUCTIVE COUGH NO CHEST PAIN,BUT DOES HURT A LITTLE TO BREATHE PT WAS HOSPITALIZED 10/22/19-10/28/19 FOR PERFORATED SIGMOID COLON, AND HAD COLOSTOMY PLACED PT STATES HE THINKS HIS INCISION IS INFECTED--HAS BEEN BLEEDING AND DRAINING HAD NEGATIVE COVID-19 TEST ON 10/22/19 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 AND HAS BEEN FOLLOWED AT PT ALSO IS FOLLOWED AT FOR MELANOMA OF NOSE HAS HAD SURGERIES AND HAS NOT BEEN ON CHEMO SINCE 2019--WAS ON OPDIVO NO LOCAL PCP Allergies and Home Medications Allergies Coded Allergies: No Known Drug Allergies (Verified , 10/16/17) Home Medications Ascorbic Acid 250 Mg Tab, 250 MG PO BID, (Reported) Aspirin 81 Mg Tablet.dr, 81 MG PO DAILY, (Reported) Atorvastatin Calcium 20 Mg Tablet, 20 MG PO HS, (Reported) Cetirizine HCl 10 Mg Tablet, 10 MG PO DAILY, (Reported) Chlorthalidone 25 Mg Tablet, 25 MG PO DAILY, (Reported) Citalopram Hydrobromide 40 Mg Tablet, 40 MG PO DAILY, (Reported) Fluticasone/Salmeterol 1 Each Blst.w.dev, 1 EACH IH BID, (Reported) Lansoprazole 15 Mg Capsule.dr, 15 MG PO DAILY, (Reported) Levothyroxine Sodium 100 Mcg Tablet, 100 MCG PO DAILY, (Reported) Metoprolol Succinate 25 Mg Tab.er.24h, 25 MG PO BID, (Reported) Mycophenolate Mofetil 500 Mg Tablet, 1,000 MG PO BID, (Reported) TAKES 2 (500MG) TABS Niacin 1,000 Mg Tablet.er, 1,000 MG PO HS, (Reported) [place] 3 Polyunsat Fatty Acids 1,000 Mg Cap, 1,000 MG PO BID, (Reported) Prednisone 20 Mg Tab, 50 MG PO DAILY, (Reported) TAKES 2 & (20MG) TABS Tamsulosin HCl 0.4 Mg Cap, 0.4 MG PO DAILY, (Reported) Tramadol HCl 50 Mg Tablet, 50 MG PO Q4H PRN for PAIN-MODERATE (5-7) Prescribed by: ALEK HERNANDEZ on 10/28/19 1611 Review of Systems Review of Systems Constitutional: see HPI, diaphoresis, fever, malaise, weakness EENTM: no symptoms reported Respiratory: see HPI, cough, short of breath Cardiovascular: see HPI Gastrointestinal: see HPI; No vomiting Genitourinary: no symptoms reported Musculoskeletal: no symptoms reported Skin: see HPI Psychiatric/Neurological: No Symptoms Reported Past Hpfqzcr-Jvfltn-Qqcjqv Hx Past Med/Social Hx: Reviewed and Corrections made Patient Social History Alcohol Use: Occasionally Uses Number of Drinks Today: AA Alcohol Beverage of Choice: Beer Recreational Drug Use: No Smoking Status: Former Smoker Former Smoker, Quit: Mar 26, 1987 2nd Hand Smoke Exposure: No Recent Hopitalizations: No Physical Abuse: No Sexual Abuse: No Mistreated: No Immunizations Up To Date Tetanus Booster (TDap): Unknown PED Vaccines UTD: No Date of Influenza Vaccine: Dec 24, 2018 Seasonal Allergies Seasonal Allergies: No Past Medical History Surgeries: Yes (CYST FROM RIGHT HAND, INGUINAL HERNIA, NASAL SURGERY-MELANOMA) Abdominal, Bowel Surgery, Vasectomy Respiratory: Yes (PULMONARY FIBROSIS) Sleep Apnea Currently Using CPAP: No Currently Using BIPAP: No Cardiac: Yes High Cholesterol, Hypertension Neurological: No Reproductive Disorders: No Sexually Transmitted Disease: No HIV/AIDS: No Genitourinary: No Gastrointestinal: Yes (PERFORATED SIGMOID COLON-S/P COLOSTOMY 10/22/19) Diverticulosis Musculoskeletal: Yes Arthritis Endocrine: No HEENT: Yes (MELANOMA OF NOSE) Loss of Vision: Bilateral Hearing Impairment: Denies Cancer: Yes Skin, Melanoma Did You Recieve Any Treatments: Yes What Type of Treatment Did You: Chemotherapy, Surgical Intervention Psychosocial: No Integumentary: No Blood Disorders: No Adverse Reaction/Blood Tranf: No (N/A) Family Medical History Hypertension PSH: -COLON RESECTION WITH COLOSTOMY FOR PERFORATED SIGMOID COLON 10/20/19 Physical Exam Vital Signs - First Documented 11/05/19 21:10 Temp 37.9 Pulse 88 Resp 20 B/P (MAP) 124/79 (94) Pulse Ox 88 O2 Delivery Room Air Capillary Refill : Height: 5'11.00" Weight: 194lbs. 0.0oz. 87.661981ps; 29.70 BMI Method: General Appearance: WD/WN, mild distress, other (MILD TO MODERATE DYSPNEA, PT MILDLY LETHARGIC. PALE, VERY WARM AND PROFUSELY DIAPHORETIC) HEENT: PERRL/EOMI Neck: normal inspection Respiratory: respiratory distress (MILD TO MODERATE DYSPNEA), decreased breath sounds (DECREASED AERATION IN ALL LUNG [place]), accessory muscle use Cardiovascular: no murmur, tachycardia (120'S ) Gastrointestinal: soft, other (COLOSTOMY IN LLQ APPEARS TO BE FUNCTIONING NORMALLY WITH NORMAL APPEARING STOOL. MIDLINE INCISION WITH ABBEY INTACT--D RESSING COMPLETELY SATURATED WITH FRESH BLOOD AND BROWN LIQUID. DOES APPEAR TO HAVE SOME WOUND DEHISCENCE IN AT LEAST 2 AREAS. FRESH BLOOD FROM MID AND ALSO LOWER ASPECT OF INCISION. UPPER ASPECT OF INCISION WITH PROFUSE BROWN/PURULENT DRAINAGE. 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 RESPIRATIONS EVEN AND UNLABORED. ) Cardiovascular: Regular Rate, Rhythm, No Murmur Skin: warm/dry, pallor Lactic Acid Level Laboratory Tests Test 11/05/19 21:40 Lactic Acid Level 0.89 MMOL/L (0.50-2.00) Within 3hrs of presentation: Admin fluids, Admin ABX, Blood cultures prior to ABX's, Focus exam, Lactate level Progress/Results/Core Measures Suspected Sepsis SIRS Temperature: Pulse: Respiratory Rate: Laboratory Tests 11/05/19 21:15: White Blood Count 21.1H Blood Pressure / Mean: 11/05/19 21:40: Lactic Acid Level 0.89 Laboratory Tests 11/05/19 21:15: Creatinine 1.07, INR Comment 1.1, Platelet Count 497H, Total Bilirubin 0.8 Results/Orders Lab Results Laboratory Tests Test 11/05/19 21:15 11/05/19 21:34 11/05/19 21:40 11/05/19 22:30 Range/Units White Blood Count 21.1 H 4.3-11.0 10^3/uL Red Blood Count 4.16 L 4.35-5.85 10^6/uL Hemoglobin 11.8 L 13.3-17.7 G/DL Hematocrit 35 L 40-54 % Mean Corpuscular Volume 84 80-99 FL Mean Corpuscular Hemoglobin 28 25-34 PG Mean Corpuscular Hemoglobin Concent 34 32-36 G/DL Red Cell Distribution Width 16.9 H 10.0-14.5 % Platelet Count 497 H 130-400 10^3/uL Mean Platelet Volume 9.3 7.4-10.4 FL Neutrophils (%) (Auto) 97 H 42-75 % Lymphocytes (%) (Auto) 2 L 12-44 % Monocytes (%) (Auto) 1 0-12 % Eosinophils (%) (Auto) 0 0-10 % Basophils (%) (Auto) 0 0-10 % Neutrophils # (Auto) 20.4 H 1.8-7.8 X 10^3 Lymphocytes # (Auto) 0.4 L 1.0-4.0 X 10^3 Monocytes # (Auto) 0.2 0.0-1.0 X 10^3 Eosinophils # (Auto) 0.0 0.0-0.3 10^3/uL Basophils # (Auto) 0.0 0.0-0.1 10^3/uL Neutrophils % (Manual) 84 % Lymphocytes % (Manual) 3 % Monocytes % (Manual) 2 % Band Neutrophils 11 % Polychromasia SLIGHT Erythrocyte Sedimentation Rate 104 H 0-30 MM/HR Prothrombin Time 14.5 12.2-14.7 SEC INR Comment 1.1 0.8-1.4 Activated Partial Thromboplast Time 31 24-35 SEC D-Dimer 4.69 H 0.00-0.49 UG/ML Sodium Level 130 L 135-145 MMOL/L Potassium Level 3.2 L 3.6-5.0 MMOL/L Chloride Level 89 L 98-107 MMOL/L Carbon Dioxide Level 25 21-32 MMOL/L Anion Gap 16 H 5-14 MMOL/L Blood Urea Nitrogen 20 H 7-18 MG/DL Creatinine 1.07 0.60-1.30 MG/DL Estimat Glomerular Filtration Rate > 60 BUN/Creatinine Ratio 19 Glucose Level 271 H 70-105 MG/DL Calcium Level 10.8 H 8.5-10.1 MG/DL Corrected Calcium 11.3 H 8.5-10.1 MG/DL Magnesium Level 1.6 1.6-2.4 MG/DL Total Bilirubin 0.8 0.1-1.0 MG/DL Aspartate Amino Transf (AST/SGOT) 36 H 5-34 U/L Alanine Aminotransferase (ALT/SGPT) 50 0-55 U/L Alkaline Phosphatase 104 40-136 U/L Lactate Dehydrogenase 373 H 125-220 U/L Total Creatine Kinase < 7 L 30-200 U/L Creatine Kinase MB 0.3 <6.6 NG/ML Myoglobin 51.2 10.0-92.0 NG/ML Troponin I < 0.028 <0.028 NG/ML C-Reactive Protein High Sensitivity 40.92 H 0.00-0.50 MG/DL B-Type Natriuretic Peptide 97.5 <100.0 PG/ML Total Protein 6.8 6.4-8.2 GM/DL Albumin 3.4 3.2-4.5 GM/DL Procalcitonin 1.65 H <0.10 NG/ML Lactic Acid Level 0.89 0.50-2.00 MMOL/L Urine Color YELLOW Urine Clarity CLEAR Urine pH 6.5 5-9 Urine Specific [place] 1.015 L 1.016-1.022 Urine Protein 1+ H NEGATIVE Urine Glucose (UA) 2+ H NEGATIVE Urine Ketones NEGATIVE NEGATIVE Urine Nitrite NEGATIVE NEGATIVE Urine Bilirubin NEGATIVE NEGATIVE Urine Urobilinogen 0.2 < = 1.0 MG/DL Urine Leukocyte Esterase NEGATIVE NEGATIVE Urine RBC (Auto) NEGATIVE NEGATIVE Urine RBC RARE /HPF Urine WBC RARE /HPF Urine Squamous Epithelial Cells RARE /HPF Urine Crystals NONE /LPF Urine Bacteria NEGATIVE /HPF Urine Casts NONE /LPF Urine Mucus NEGATIVE /LPF Urine Culture Indicated NO My Orders Orders - LUIS GARCIA DO Ed Iv/Invasive Line Start (11/05/19 21:15) Ekg Tracing (11/05/19 21:15) O2 (11/05/19 21:15) Monitor-Rhythm Ecg Trace Only (11/05/19 21:15) BNP (11/05/19 21:15) Cbc With Automated Diff (11/05/19 21:15) Comprehensive Metabolic Panel (11/05/19 21:15) Creatine Kinase (11/05/19 21:15) Creatine Kinase Mb (11/05/19 21:15) Erythrocyte Sedimentation Rate (11/05/19 21:15) Fibrin Degradation Products (11/05/19 21:15) Lactic Acid Analyzer (11/05/19 21:15) Magnesium (11/05/19 21:15) Procalcitonin (Pct) (11/05/19 21:15) Protime With Inr (11/05/19 21:15) Partial Thromboplastin Time (11/05/19 21:15) Ua Culture If Indicated (11/05/19 21:15) Blood Culture (11/05/19 21:15) Myoglobin Serum (11/05/19 21:15) Troponin I (11/05/19 21:15) Chest 1 View, Ap/Pa Only (11/05/19 21:15) Hs C Reactive Protein (11/05/19 21:15) LDH (11/05/19 21:15) Coronavirus Sars-Cov-2 So 2018 (11/05/19 21:15) Ed Iv/Invasive Line Start (11/05/19 21:15) Ns Iv 1000 Ml (Sodium Chloride 0.9%) (11/05/19 21:15) Wound Culture (11/05/19 21:41) Vancomycin Injection (Vancomycin Injecti (11/05/19 21:45) Piperacillin Sodium/Tazobactam (Zosyn Vi (11/05/19 21:45) Vancomycin Injection (Vancomycin Injecti (11/05/19 22:00) Vancomycin Injection (Vancomycin Injecti (11/05/19 23:00) Manual Differential (11/05/19 21:15) Medications Given in ED Current Medications Medications Dose Ordered Sig/Loulou Route Start Time Stop Time Status Last Admin Dose Admin Piperacillin Sod/ Tazobactam Sod 4.5 gm/Sodium Chloride 100 ml @ 200 mls/hr ONCE ONCE IV 11/05/19 21:45 11/05/19 22:14 DC 11/05/19 22:00 200 MLS/HR Sodium Chloride 1,000 ml @ 0 mls/hr Q0M ONCE IV 11/05/19 21:15 11/05/19 21:18 DC 11/05/19 21:54 0 MLS/HR Vancomycin HCl 1000 mg/Sodium Chloride 250 ml @ 250 mls/hr ONCE ONCE IV 8/12/20 22:00 11/05/19 22:59 DC 11/05/19 22:07 250 MLS/HR Vital Signs/I&O 11/05/19 21:10 Temp 37.9 Pulse 88 Resp 20 B/P (MAP) 124/79 (94) Pulse Ox 88 O2 Delivery Room Air 11/06/19 00:00 Intake Total 100 ml Balance 100 ml Capillary Refill : Progress Note : Progress Note PLACED ON O2 AT 2L/NC AND O2 SATS UP TO MID 90'S AND RESPIRATIONS ARE LESS LABORED AND PT STATES HE FEELS BETTER PT TOOK A TYLENOL PRIOR TO ARRIVAL AND TEMP DOWN TO 98 PRIOR TO ADMIT AND SKIN IS WARM AND DRY GIVEN IV FLUIDS, AND ANTIBIOTICS NO DETERIORATION IN PT'S CONDITION DURING ER STAY ECG Initial ECG Impression Date: Nov 05, 2019 Initial ECG Impression Time: 21:25 Initial ECG Rate: 94 Initial ECG Rhythm: Normal Sinus Diagnostic Imaging Comments CXR--PER RADIOLOGIST REPORT AT 2156 FINDINGS: There is persistent but decreased bilateral pulmonary infiltrates. There is some improved expansion of both lungs. Trace bilateral pleural effusions are present. The heart remains enlarged. There is no pneumothorax. Osseous structures are normal. IMPRESSION: Persistent but decreased bilateral pulmonary infiltrates with improved expansion of both lungs. Reviewed: Reviewed by [facility] Departure Communication (Admissions) [id number]--SPOKE WITH DR. BUCIO, HOSPITALIST, ACCEPTS PT FOR ADMIT [id number]--MESSAGE TO DR. HERNANDEZ IN SURGERY. NO ADDITIONAL RECOMMENDATIONS AT THIS TIME. Impression Primary Impression: Bilateral pneumonia Additional Impressions: Hypoxia Person under investigation for COVID-19 POST OP ABDOMINAL WOUND INFECTION S/P COLOSTOMY FOR PERFORATED SIGMOID COLON History of melanoma Disposition: ADMITTED INPATIENT Condition: Improved Departure-Patient Inst. Referrals: NO,LOCAL PHYSICIAN (PCP/Family) Primary Care Physician LUIS GARCIA DO Nov 05, 2019 21:57
[2019-11-05 22:07] LABS: FIBRIN DEGRADATION PRODUCTS 4.69 UG/ML (0.00-0.49); PROTHROMBIN TIME PATIENT 14.5 SEC (12.2-14.7)
[2019-11-05 22:08] LABS: INR 1.1 (0.8-1.4)
[2019-11-05 22:15] LABS: ALANINE AMINOTRANSFERASE 50 U/L (0-55); ALBUMIN 3.4 GM/DL (3.2-4.5); ALKALINE PHOSPHATASE 104 U/L (40-136); BILIRUBIN,TOTAL 0.8 MG/DL (0.1-1.0); BUN/CREATININE RATIO 19; CALCIUM 10.8 MG/DL (8.5-10.1); CARBON DIOXIDE 25 MMOL/L (21-32); CHLORIDE 89 MMOL/L (98-107); CREATINE KINASE < 7 U/L (30-200); CREATININE SERUM 1.07 MG/DL (0.60-1.30); GFR ESTIMATED > 60; GLUCOSE 271 MG/DL (70-105); MAGNESIUM 1.6 MG/DL (1.6-2.4); POTASSIUM 3.2 MMOL/L (3.6-5.0); SODIUM 130 MMOL/L (135-145); TOTAL PROTEIN 6.8 GM/DL (6.4-8.2)
[2019-11-05 22:25] LABS: ERYTHROCYTE SEDIMENTATION RATE 104 MM/HR (0-30)
[2019-11-05 22:30] LABS: CREATINE KINASE MB 0.3 NG/ML (<6.6)
[2019-11-05 22:39] LABS: BILIRUBIN,URINE NEGATIVE (NEGATIVE); CLARITY,URINE CLEAR; COLOR,URINE YELLOW; GLUCOSE, URINE (UA) 2+ (NEGATIVE); KETONES,URINE NEGATIVE (NEGATIVE); LEUKOCYTE ESTERASE ,URINE NEGATIVE (NEGATIVE); NITRITE,URINE NEGATIVE (NEGATIVE); PH,URINE 6.5 (5-9); PROTEIN,URINE 1+ (NEGATIVE)
[2019-11-05] MEDS ORDERED: LACTATED RINGERS 1,000 ML IV ONE (22:42)
[2019-11-05 22:46] LABS: BACTERIA,URINE NEGATIVE /HPF; RBC,URINE RARE /HPF; SQUAMOUS EPITHELIAL CELL,UR RARE /HPF; WBC,URINE RARE /HPF
[2019-11-05 22:56] LABS: BAND NEUTROPHILS 11 %; LYMPHOCYTES % (MANUAL) 3 %; MONOCYTES % (MANUAL) 2 %; NEUTROPHILS % (MANUAL) 84 %; POLYCHROMASIA SLIGHT
[2019-11-05] MEDS ORDERED: VANCOMYCIN INJECTION 750 MG in NS (IVPB) 250 ML IV ONE (23:00)
[2019-11-06] VITALS (16 sets, daily range): BP systolic 95–131; BP diastolic 64–87
[2019-11-06] MEDS ORDERED: ACETAMINOPHEN 500 MG TAB (TYLENOL) PO PRN (00:45)
[2019-11-06] MEDS ORDERED: IBUPROFEN 800 MG (MOTRIN) TAB PO PRN (01:00)
[2019-11-06] MEDS ORDERED: ONDANSETRON 4 MG/2 ML (SDV) Z0FRAN IV PRN (01:00)
[2019-11-06] MEDS: 1/2 NS W/KCL 20 MEQ/L 1,000 ML IV SCH ×3 (01:02→15:45)
[2019-11-06 03:26] LABS: BASOPHILS % (AUTO) 0 % (0-10); EOSINOPHILS % (AUTO) 0 % (0-10); HEMATOCRIT 31 % (40-54); HEMOGLOBIN 10.3 G/DL (13.3-17.7); LYMPHOCYTES # (AUTO) 0.4 X 10^3 (1.0-4.0); LYMPHOCYTES % (AUTO) 3 % (12-44); MEAN CORPUSCULAR HEMOGLOBIN 28 PG (25-34); MEAN CORPUSCULAR HGB CONC 33 G/DL (32-36); MEAN CORPUSCULAR VOLUME 85 FL (80-99); MEAN PLATELET VOLUME 9.6 FL (7.4-10.4); MONOCYTES # (AUTO) 0.1 X 10^3 (0.0-1.0); MONOCYTES % (AUTO) 1 % (0-12); NEUTROPHILS # (AUTO) 13.8 X 10^3 (1.8-7.8); NEUTROPHILS % (AUTO) 96 % (42-75); PLATELET COUNT 319 10^3/uL (130-400); WHITE BLOOD COUNT 14.3 10^3/uL (4.3-11.0)
[2019-11-06 03:54] LABS: ALANINE AMINOTRANSFERASE 39 U/L (0-55); ALBUMIN 2.8 GM/DL (3.2-4.5); ALKALINE PHOSPHATASE 73 U/L (40-136); BILIRUBIN,TOTAL 0.6 MG/DL (0.1-1.0); BUN/CREATININE RATIO 20; CALCIUM 9.4 MG/DL (8.5-10.1); CARBON DIOXIDE 25 MMOL/L (21-32); CHLORIDE 96 MMOL/L (98-107); CREATININE SERUM 0.91 MG/DL (0.60-1.30); GFR ESTIMATED > 60; GLUCOSE 185 MG/DL (70-105); POTASSIUM 3.5 MMOL/L (3.6-5.0); SODIUM 133 MMOL/L (135-145); TOTAL PROTEIN 5.8 GM/DL (6.4-8.2)
[2019-11-06] MEDS ORDERED: NS (IVPB) 100 ML ONE (04:44)
[2019-11-06] MEDS ORDERED: PIPERACILLIN/TAZO 4.5 GM VIAL (ZOSYN) IV ONE (04:44)
[2019-11-06] MEDS: inSUlin ASPART (NovoLOG) 1 UNIT/0.01 ML (CHARGE PER UNIT) SC SCH ×3 (04:55→15:57)
[2019-11-06] MEDS ORDERED: RT-ALBUTEROL/IPRATROPIUM 3 ML (DUONEB) VIAL INH PRN (05:00)
[2019-11-06] MEDS: PIPERACILLIN/TAZOBACTAM (BULK) 4.5 GM in NS (IVPB) 100 ML IV SCH ×3 (05:12→20:14)
[2019-11-06] MEDS ORDERED: ADVAIR HFA 115/21 MCG INHALER 8 GM IH SCH (08:00)
--- NOTE | 2019-11-06 09:07 | History & Physical-Hospitalist ---
History of Present Illness HPI/Chief Complaint Pt is a 64yoCM known to me from recent admission on 10/21 for sigmoid colon perforation who presented to the ER due to fever. He states he had been doing well since discahrge but yesterday developed a fever. It got up to 102 when he decided to seek evaluation. He states his colostomy has been functioning fine but he has been more tender near the bottom of his incision and thinks there may have been more drainage. Today he has not specific complaints. Source: patient Date Seen 11/06/19 Time Seen by a Provider: 09:06 Attending Physician Jordan Todd MD PCP No,Local Physician Referring Physician Date of Admission Nov 05, 2019 at 22:30 Home Medications & Allergies Home Medications Reviewed patient Home Medication Reconciliation performed by pharmacy medication reconciliations fiscal technician and/or nursing. Patients Allergies have been reviewed. Allergies Allergies Coded Allergies No Known Drug Allergies (Verified10/16/17) Past Kozuowx-Hqtudy-Svlshs Hx Past Med/Social Hx: Reviewed and Corrections made Patient Social History Marrital Status: Alcohol Use: Occasionally Uses Alcohol Beverage of Choice: Beer Recreational Drug Use: No Smoking Status: Former Smoker Former Smoker, Quit: Mar 26, 1987 2nd Hand Smoke Exposure: No Recent Foreign Travel: No Contact w/other who traveled: No Recent Hopitalizations: No Recent Infectious Disease Expo: No Immunizations Up To Date Tetanus Booster (TDap): Unknown Pediatric: No Date of Influenza Vaccine: Dec 24, 2018 Seasonal Allergies Seasonal Allergies: No Past Medical History Surgeries: Abdominal, Bowel Surgery, Vasectomy Currently Using CPAP: No Currently Using BIPAP: No Cardiac: High Cholesterol, Hypertension Reproductive: No Sexually Transmitted Disease: No HIV/AIDS: No Gastrointestinal: Diverticulosis Musculoskeletal: Arthritis Loss of Vision: Bilateral Hearing Impairment: Denies Cancer: Skin, Melanoma Did You Recieve Any Treatments: Yes What Type of Treatment Did You: Chemotherapy, Surgical Intervention History of Blood Disorders: No Adverse Reaction to Blood [place]: No (N/A) Family History Reviewed Nursing Family Hx Hypertension PSH: -COLON RESECTION WITH COLOSTOMY FOR PERFORATED SIGMOID COLON 10/20/19 Review of Systems Constitutional: chills, fever EENTM: no symptoms reported Respiratory: No cough; short of breath Cardiovascular: No chest pain, No edema Gastrointestinal: see HPI Genitourinary: No dysuria, No frequency Musculoskeletal: no symptoms reported Skin: no symptoms reported Psychiatric/Neurological: No Symptoms Reported Physical Exam Physical Exam Vital Signs Vital Signs - First Documented 11/05/19 11/06/19 21:10 00:03 Temp 37.9 Pulse 88 Resp 20 B/P (MAP) 124/79 (94) Pulse Ox 88 O2 Delivery Room Air O2 Flow Rate 2.00 Capillary Refill : Less Than 3 Seconds Height, Weight, BMI Height: 5'11.00" Weight: 194lbs. 0.0oz. 87.661985qk; 28.84 BMI Method: General Appearance: No Apparent Distress, Chronically ill HEENT: PERRL/EOMI, Moist Mucous Membranes Neck: Normal Inspection, Supple Respiratory: Lungs Clear, No Accessory Muscle Use, No Respiratory Distress, Other (on oxygen) Cardiovascular: Regular Rate, Rhythm, No JVD, No Murmur Gastrointestinal: Normal Bowel Sounds, Non Tender, Soft Extremity: No Calf Tenderness, No Pedal Edema Neurologic/Psychiatric: Alert, Oriented x3, Normal Mood/Affect Skin: Normal Color, Warm/Dry Results Results/Procedures Labs Laboratory Tests 11/05/19 21:15 11/06/19 02:32 Patient resulted labs reviewed. Assessment/Plan Admission Diagnosis sepsis Admission Status: Inpatient Order (span 2 midnights) Reason for Inpatient Admission: see below Assessment and Plan sepsis- not severe Recent bowel perf with colostomy Unsure of etiology Await cultures Continue IV abx Spoke with Dr Lundy and plan is to return to OR for evaluation today Recent Pneumonia Pulmonary fibrosis I don't think this is a new pneumonia today- likely just pulm fibrosis Continue abx coverage Elevated blood sugars SSI Will get a1c Hypothyroidism Continue synthroid when able to take PO HTN On low end currently Monitor closely Metastatic melanoma s/p Opdivo treatment Chronic steroid use Stress dose steroids preop Follows with [facility] Oncology Clinical Quality Measures DVT/VTE Risk/Contraindication: Risk Factor Score Per Nursin RFS Level Per Nursing on Admit: 4+=Very High GIL STORY MD Nov 06, 2019 09:07
[2019-11-06] MEDS ORDERED: VANCOMYCIN 1250 MG/NS 250 ML IVPB IV SCH ×2 (10:00)
--- NOTE | 2019-11-06 10:09 | Consultation - Surgery ---
HILARYARNIE MED STUDENT 11/06/19 1008: History of Present Illness History of Present Illness Patient Consulted On(paxton/time) 11/06/19 10:03 Date Seen by Provider: Nov 06, 2019 Time Seen by Provider: 08:03 History of Present Illness Surgery Consult for patient with pain around incisional wound s/p sigmoid resection/Enriquez's procedure. 64 y/o male presented to ED light night from fever and abdominal pain at approximately 01:00 11/06/19. Patient states he was doing well after being discharged following his sigmoid colon resection/Enriquez's procedure but developed a fever of over 95F yesterday. Approximately midnight, patient states his fever had risen to about 103F and he felt significant abdominal pain around his surgical incision (now resolved), noting some bloody drainage. He was then brought to the ED for evaluation. He now reports only mild pain on palpation along the incision, especially at the lower aspect; no active drainage. Patient reports no pain around the colostomy bag, stool noted in bag. Allergies and Home Medications Allergies Coded Allergies: No Known Drug Allergies (Verified , 10/16/17) Home Medications Ascorbic Acid 250 Mg Tab, 250 MG PO BID, (Reported) Aspirin 81 Mg Tablet.dr, 81 MG PO DAILY, (Reported) Atorvastatin Calcium 20 Mg Tablet, 20 MG PO HS, (Reported) Cephalexin 500 Mg Capsule, 500 MG PO BID, (Reported) FILLED 11-04-2019 #14/7 DAY SUPPLY Cetirizine HCl 10 Mg Tablet, 10 MG PO DAILY, (Reported) Chlorthalidone 25 Mg Tablet, 25 MG PO DAILY, (Reported) Citalopram Hydrobromide 40 Mg Tablet, 40 MG PO DAILY, (Reported) Fluticasone/Salmeterol 1 Each Blst.w.dev, 1 EACH IH BID, (Reported) Lansoprazole 15 Mg Capsule.dr, 15 MG PO DAILY, (Reported) Levothyroxine Sodium 100 Mcg Tablet, 100 MCG PO DAILY, (Reported) Metoprolol Succinate 25 Mg Tab.er.24h, 25 MG PO BID, (Reported) Mycophenolate Mofetil 500 Mg Tablet, 1,000 MG PO BID, (Reported) TAKES 2 (500MG) TABS Niacin 1,000 Mg Tablet.er, 1,000 MG PO HS, (Reported) [place]-3 Acid Ethyl Esters 1 Gm Capsule, 1 GM PO BID, (Reported) LAST FILLED 06-29-2019 #180/90 DAY SUPPLY Prednisone 20 Mg Tab, 30 MG PO BID, (Reported) TAKES 1 & TABS (20MG) TWICE DAILY Tamsulosin HCl 0.4 Mg Cap, 0.4 MG PO DAILY, (Reported) Past Xmsrkeo-Poxwva-Gnmzfe Hx Patient Social History Alcohol Use: Occasionally Uses Recreational Drug Use: No Smoking Status: Former Smoker Former Smoker, Quit: Mar 26, 1987 2nd Hand Smoke Exposure: No Recent Foreign Travel: No Contact w/Someone Who Travel: No Recent Infectious Disease Expo: No Recent Hopitalizations: No Immunizations Up To Date Tetanus Booster (TDap): Unknown PED Vaccines UTD: No Date of Influenza Vaccine: Dec 24, 2018 Seasonal Allergies Seasonal Allergies: No Surgeries History of Surgeries: Yes (CYST FROM RIGHT HAND, INGUINAL HERNIA, NASAL SURGERY-MELANOMA) Surgeries: Abdominal (sigmoid resection, Enriquez's procedure), Bowel Surgery (sigmoid resection, Enriquez's procedure), Vasectomy Respiratory History of Respiratory Disorde: Yes (PULMONARY FIBROSIS) Respiratory Disorders: Sleep Apnea Cardiovascular History of Cardiac Disorders: Yes Cardiac Disorders: High Cholesterol, Hypertension Neurological History of Neurological Disord: No Reproductive System Hx Reproductive Disorders: No Sexually Transmitted Disease: No HIV/AIDS: No Genitourinary History of Genitourinary Disor: No Gastrointestinal History of Gastrointestinal Di: Yes (PERFORATED SIGMOID COLON-S/P COLOSTOMY 10/22/19) Gastrointestinal Disorders: Diverticulosis Musculoskeletal History of Musculoskeletal Dis: Yes Musculoskeletal Disorders: Arthritis Endocrine History of Endocrine Disorders: No HEENT History of HEENT Disorders: Yes (MELANOMA OF NOSE) Loss of Vision: Bilateral Hearing Impairment: Denies Cancer History of Cancer: Yes Cancer: Skin, Melanoma Psychosocial History of Psychiatric Problem: No Integumentary History of Skin or Integumenta: No Blood Transfusions History of Blood Disorders: No Adverse Reaction to a Blood Tr: No (N/A) Family Medical History Significant Family History: Hypertension Review of Systems-General Constitutional: fever Respiratory: No short of breath, No wheezing Cardiovascular: No chest pain, No palpitations Gastrointestinal: abdominal pain (around midline abdominal incision); No jaundice Psychiatric/Neurological: Denies Anxiety, Denies Headache Physical Exam-General Problems Physical Exam Vital Signs Vital Signs - First Documented 11/05/19 11/06/19 21:10 00:03 Temp 37.9 Pulse 88 Resp 20 B/P (MAP) 124/79 (94) Pulse Ox 88 O2 Delivery Room Air O2 Flow Rate 2.00 Capillary Refill : Less Than 3 Seconds General Appearance: WD/WN, no apparent distress Respiratory: chest non-tender, normal breath sounds Cardiovascular: no edema, no murmur Gastrointestinal: non tender, no pulsatile mass, tenderness (on deep palpation) Skin: normal color, tattoos/piercings Data Review Labs Laboratory Tests 11/05/19 21:15: White Blood Count 21.1H, Red Blood Count 4.16L, Hemoglobin 11.8L, Hematocrit 35L , Mean Corpuscular Volume 84, Mean Corpuscular Hemoglobin 28, Mean Corpuscular Hemoglobin Concent 34, Red Cell Distribution Width 16.9H, Platelet Count 497H, Mean Platelet Volume 9.3, Neutrophils (%) (Auto) 97H, Lymphocytes (%) (Auto) 2L, Monocytes (%) (Auto) 1, Eosinophils (%) (Auto) 0, Basophils (%) (Auto) 0, Neutrophils # (Auto) 20.4H, Lymphocytes # (Auto) 0.4L, Monocytes # (Auto) 0.2, Eosinophils # (Auto) 0.0, Basophils # (Auto) 0.0, Neutrophils % (Manual) 84, Lymphocytes % (Manual) 3, Monocytes % (Manual) 2, Band Neutrophils 11, Polychromasia SLIGHT, Erythrocyte Sedimentation Rate 104H, Prothrombin Time 14.5, INR Comment 1.1, Activated Partial Thromboplast Time 31, D-Dimer 4.69H, Sodium Level 130L, Potassium Level 3.2L, Chloride Level 89L, Carbon Dioxide Level 25, Anion Gap 16H, Blood Urea Nitrogen 20H, Creatinine 1.07, Estimat Glomerular Filtration Rate > 60, BUN/Creatinine Ratio 19, Glucose Level 271H, Calcium Level 10.8H, Corrected Calcium 11.3H, Magnesium Level 1.6, Total Bilirubin 0.8, Aspartate Amino Transf (AST/SGOT) 36H, Alanine Aminotransferase (ALT/SGPT) 50, Alkaline Phosphatase 104, Lactate Dehydrogenase 373H, Total Creatine Kinase < 7L, Creatine Kinase MB 0.3, Myoglobin 51.2, Troponin I < 0.028, C-Reactive Protein High Sensitivity 40.92H, B-Type Natriuretic Peptide 97.5, Total Protein 6.8, Albumin 3.4, Procalcitonin 1.65H 11/05/19 21:34: 11/05/19 21:40: Lactic Acid Level 0.89 11/05/19 22:30: Urine Color YELLOW, Urine Clarity CLEAR, Urine pH 6.5, Urine Specific [place] 1.015L, Urine Protein 1+H, Urine Glucose (UA) 2+H, Urine Ketones NEGATIVE, Urine Nitrite NEGATIVE, Urine Bilirubin NEGATIVE, Urine Urobilinogen 0.2, Urine Leukocyte Esterase NEGATIVE, Urine RBC (Auto) NEGATIVE, Urine RBC RARE, Urine WBC RARE, Urine Squamous Epithelial Cells RARE, Urine Crystals NONE, Urine Bacteria NEGATIVE, Urine Casts NONE, Urine Mucus NEGATIVE, Urine Culture Indicated NO 11/06/19 02:32: White Blood Count 14.3H, Red Blood Count 3.65L, Hemoglobin 10.3L, Hematocrit 31L , Mean Corpuscular Volume 85, Mean Corpuscular Hemoglobin 28, Mean Corpuscular Hemoglobin Concent 33, Red Cell Distribution Width 17.0H, Platelet Count 319, Mean Platelet Volume 9.6, Neutrophils (%) (Auto) 96H, Lymphocytes (%) (Auto) 3L, Monocytes (%) (Auto) 1, Eosinophils (%) (Auto) 0, Basophils (%) (Auto) 0, Neutrophils # (Auto) 13.8H, Lymphocytes # (Auto) 0.4L, Monocytes # (Auto) 0.1, Eosinophils # (Auto) 0.0, Basophils # (Auto) 0.0, Sodium Level 133L, Potassium Level 3.5L, Chloride Level 96L, Carbon Dioxide Level 25, Anion Gap 12, Blood Urea Nitrogen 18, Creatinine 0.91, Estimat Glomerular Filtration Rate > 60, BUN/Creatinine Ratio 20, Glucose Level 185H, Calcium Level 9.4, Corrected Calcium 10.4H, Total Bilirubin 0.6, Aspartate Amino Transf (AST/SGOT) 30, Alanine Aminotransferase (ALT/SGPT) 39, Alkaline Phosphatase 73, Total Protein 5.8L, Albumin 2.8L 11/06/19 02:45: Clinical Quality Measures DVT/VTE Risk/Contraindication: Risk Factor Score Per Nursin RFS Level Per Nursing on Admit: 4+=Very High ALEK HERNANDEZ DO 11/06/19 1848: History of Present Illness History of Present Illness Time Seen by Provider: 16:29 History of Present Illness Pt seen and examined. He states he was in contact with his Doctors up at ; Oncology, Code Official, Infectious disease and would like to go back to . Allergies and Home Medications Allergies Coded Allergies: No Known Drug Allergies (Verified , 10/16/17) Home Medications Ascorbic Acid 250 Mg Tab, 250 MG PO BID, (Reported) Aspirin 81 Mg Tablet.dr, 81 MG PO DAILY, (Reported) Atorvastatin Calcium 20 Mg Tablet, 20 MG PO HS, (Reported) Cephalexin 500 Mg Capsule, 500 MG PO BID, (Reported) FILLED 11-04-2019 #14/7 DAY SUPPLY Cetirizine HCl 10 Mg Tablet, 10 MG PO DAILY, (Reported) Chlorthalidone 25 Mg Tablet, 25 MG PO DAILY, (Reported) Citalopram Hydrobromide 40 Mg Tablet, 40 MG PO DAILY, (Reported) Fluticasone/Salmeterol 1 Each Blst.w.dev, 1 EACH IH BID, (Reported) Lansoprazole 15 Mg Capsule.dr, 15 MG PO DAILY, (Reported) Levothyroxine Sodium 100 Mcg Tablet, 100 MCG PO DAILY, (Reported) Metoprolol Succinate 25 Mg Tab.er.24h, 25 MG PO BID, (Reported) Mycophenolate Mofetil 500 Mg Tablet, 1,000 MG PO BID, (Reported) TAKES 2 (500MG) TABS Niacin 1,000 Mg Tablet.er, 1,000 MG PO HS, (Reported) [place]-3 Acid Ethyl Esters 1 Gm Capsule, 1 GM PO BID, (Reported) LAST FILLED 06-29-2019 #180/90 DAY SUPPLY Prednisone 20 Mg Tab, 30 MG PO BID, (Reported) TAKES 1 & TABS (20MG) TWICE DAILY Tamsulosin HCl 0.4 Mg Cap, 0.4 MG PO DAILY, (Reported) Patient Home Medication List Home Medication List Reviewed: Yes Physical Exam-General Problems Physical Exam General Appearance: WD/WN, no apparent distress Gastrointestinal: other (incision is intact with a lot of drainage, ostomy is pink and functioning. skin around kiley is not erythematous) Assessment/Plan Assessment/Plan Assessment/Plan ?Fascial Dehiscence Probable wound cellulitis with necrotic fat Pulmonary Fibrosis Metastatic Melanoma S/P Enriquez's procedure for Sigmoid perforation Pt has asked to be transferred back to [facility], he feels more comfortable because all of his doctors are there and he is worried about his lungs and possible lung transplant. I told pt that he has to go where he feels most comfortable; he will get the best care if he is happy with where he is. Supervisory-Addendum Brief Verification & Attestation Participated in pt care: history, MDM, physical Personally performed: exam, history, MDM Care discussed with: Medical Student Procedures: n/a Verification and Attestation of Medical Student E/M Service A medical student performed and documented this service. I then reviewed and verified all information documented by the medical student and made modifications to such information, when appropriate. I personally performed a physical exam, medical decision making and then discussed any differences between the notes and made revisions as necessary to create one note. Alek Hernandez , 11/06/19 , 18:11 ARNIE RICHARD MED STUDENT Nov 06, 2019 10:08 ALEK HERNANDEZ DO Nov 06, 2019 18:11
--- NOTE | 2019-11-06 10:36 | NUR ---
CM/SS attempted to visit with patient. Patient is currently a persons under investigation for Covid-19. CM/SS attempted to call the patient's room number but patient did not answer. According to physician patient will go back to the OR today. CM/SS contacted [facility] and spoke with Rylie. CM/SS informed them that the patient was admitted to the hospital. Unsure if the patient will resume home health at this time. CM/SS will continue to follow and update agency.
[2019-11-06] MEDS ORDERED: CEPH500C PO (11:20)
[2019-11-06] MEDS ORDERED: OMEG-105 PO (11:20)
--- NOTE | 2019-11-06 11:20 | NUR ---
TRIED TO CALL PT'S ROOM PHONE X2 WITH NO ANSWER- I CALLED PATIENTS (ANJELICA) AND WENT THRU THE EXT MED HISTORY TO COMPLETE THE MED REC CELLCEPT 500MG- PT TAKES 2 TABS BID (AND THIS SHOWS ON THE EXT MED HISTORY), WHEN I SPOKE WITH ANJELICA SHE SAID THEY STILL HAD AN OLDER BOTTLE (FROM AUGUST 2019) THAT SHOWS 1 TAB BID. SHE WANTED US TO BE AWARE THAT IF/WHEN SHE BRING IT UP SO HE CAN USE HIS HOME MEDS THAT THE BOTTLE MAY NOT HAVE THE CURRENT DIRECTIONS. PREDNISONE 20MG: ACCORDING TO ANJELICA PT'S DR IS TRYING TO TAPER HIM OFF PREDNISONE. HE HAD BEEN TAKES 2 TABS BID AND WAS RECENTLY TOLD TO DECREASE TO 30MG (1 & OF 20MG TABS) BID PT IS NO LONGER TAKING TRAMADOL 50MG OTC MEDS: ASPIRIN PREVACID ASPIRIN 81MG VIT C Addendum: 11/06/19 at 1648 by NAWAF CONNOLLY [facility] ANJELICA CALLED ME BACK AFTER I SPOKE WITH HER (I WAS GONE AND SHE LEFT A MESSAGE) WANTING TO BRING HIS HOME MEDS UP ESPECIALLY CELLCEPT. SINCE PT IS A PUI I SPOKE WITH SHIRA Dorman TO FIND OUT WHAT WE CAN DO AND ALSO LET NATALIE ALEJANDRO KNOW THE SITUATION. IN THE MEAN TIME ANJELICA DROPPED OFF THE MEDS AT THE FRONT ENTRANCE AND NATALIE SENT CELLCEPT DOWN TO THE PHARMACY TO LABEL. I CALLED ANJELICA BACK AND WE DISCUSSED THAT WE DID GET THE MED AND WE ARE IN THE PROCESS OF BEING ABLE TO GIVE IT. ANJELICA STATED SHE THINKS THEY ARE GOING TO TRANSFER TO DUE TO PT HAVING HISTORY THERE. SHE WANTED US TO KNOW IT IS NOTHING PERSONAL BUT HE HAS HAD CANCER TREATMENT AND OTHER PROCEDURE DONE THERE.
[2019-11-06] MEDS ORDERED: HYDROCORTISONE 100 MG/2 ML (Solu-CORTEF) VIAL IV SCH (14:00)
--- NOTE | 2019-11-06 19:10 | Discharge Summary ---
Diagnosis/Chief Complaint Date of Admission Nov 05, 2019 at 22:30 Date of Discharge Discharge Date: Nov 06, 2019 Admission Diagnosis sepsis Primary Care No,Local Physician Discharge Summary Procedures/Consulations Dr Lundy- Surgery Discharge Physical Exam Allergies: Coded Allergies: No Known Drug Allergies (Verified , 10/16/17) Vitals & I&Os Vital Signs Date Time Temp Pulse Resp B/P (MAP) Pulse Ox O2 Delivery O2 Flow Rate FiO2 11/06/19 16:00 94 Nasal Cannula 5.00 11/06/19 16:00 92 111/78 (89) 11/06/19 16:00 36.9 11/06/19 08:00 41 General Appearance: No Apparent Distress, WD/WN Respiratory: Lungs Clear, No Respiratory Distress Cardiovascular: Regular Rate, Rhythm, No Murmur Gastrointestinal: Other (ostomy in place, midline abdominal wound dressed with clean dry dressing) Neurologic/Psychiatric: Alert, Oriented x3 Hospital Course Pt was admitted due to sepsis. He was febrile with leukocytosis and there were concerns for intraabdominal process given recent surgery for bowel resection. Surgery was consulted and plan was to go to the OR tomorrow for exploration. I received a call from his primary oncologist from [facility] who requested transfer to [facility] for continuity of care. I discussed this with surgery and he and patient both were in agreement with plan to transfer. Because of his fever he was tested for COVID and this was negative. He was treated with Vancomycin and Zosyn for presumed infection. His blood cultures show no growth to date. His wound culture is pending. He was given stress dose steroids due to his chronic daily steroid use. He was transferred in stable and improved condition. Accepting physician was Dr Du. Labs (last 24 hrs) Laboratory Tests 11/05/19 21:15: White Blood Count 21.1H, Red Blood Count 4.16L, Hemoglobin 11.8L, Hematocrit 35L , Mean Corpuscular Volume 84, Mean Corpuscular Hemoglobin 28, Mean Corpuscular Hemoglobin Concent 34, Red Cell Distribution Width 16.9H, Platelet Count 497H, Mean Platelet Volume 9.3, Neutrophils (%) (Auto) 97H, Lymphocytes (%) (Auto) 2L, Monocytes (%) (Auto) 1, Eosinophils (%) (Auto) 0, Basophils (%) (Auto) 0, Neutrophils # (Auto) 20.4H, Lymphocytes # (Auto) 0.4L, Monocytes # (Auto) 0.2, Eosinophils # (Auto) 0.0, Basophils # (Auto) 0.0, Neutrophils % (Manual) 84, Lymphocytes % (Manual) 3, Monocytes % (Manual) 2, Band Neutrophils 11, Polychromasia SLIGHT, Erythrocyte Sedimentation Rate 104H, Prothrombin Time 14.5, INR Comment 1.1, Activated Partial Thromboplast Time 31, D-Dimer 4.69H, Sodium Level 130L, Potassium Level 3.2L, Chloride Level 89L, Carbon Dioxide Level 25, Anion Gap 16H, Blood Urea Nitrogen 20H, Creatinine 1.07, Estimat Glomerular Filtration Rate > 60, BUN/Creatinine Ratio 19, Glucose Level 271H, Calcium Level 10.8H, Corrected Calcium 11.3H, Magnesium Level 1.6, Total Silvano irubin 0.8, Aspartate Amino Transf (AST/SGOT) 36H, Alanine Aminotransferase (ALT/SGPT) 50, Alkaline Phosphatase 104, Lactate Dehydrogenase 373H, Total Creatine Kinase < 7L, Creatine Kinase MB 0.3, Myoglobin 51.2, Troponin I < 0.028, C-Reactive Protein High Sensitivity 40.92H, B-Type Natriuretic Peptide 97.5, Total Protein 6.8, Albumin 3.4, Procalcitonin 1.65H 11/05/19 21:34: 11/05/19 21:40: Lactic Acid Level 0.89 11/05/19 22:30: Urine Color YELLOW, Urine Clarity CLEAR, Urine pH 6.5, Urine Specific [place] 1.015L, Urine Protein 1+H, Urine Glucose (UA) 2+H, Urine Ketones NEGATIVE, Urine Nitrite NEGATIVE, Urine Bilirubin NEGATIVE, Urine Urobilinogen 0.2, Urine Leukocyte Esterase NEGATIVE, Urine RBC (Auto) NEGATIVE, Urine RBC RARE, Urine WBC RARE, Urine Squamous Epithelial Cells RARE, Urine Crystals NONE, Urine Bacteria NEGATIVE, Urine Casts NONE, Urine Mucus NEGATIVE, Urine Culture Indicated NO 11/06/19 02:32: White Blood Count 14.3H, Red Blood Count 3.65L, Hemoglobin 10.3L, Hematocrit 31L , Mean Corpuscular Volume 85, Mean Corpuscular Hemoglobin 28, Mean Corpuscular Hemoglobin Concent 33, Red Cell Distribution Width 17.0H, Platelet Count 319, Mean Platelet Volume 9.6, Neutrophils (%) (Auto) 96H, Lymphocytes (%) (Auto) 3L, Monocytes (%) (Auto) 1, Eosinophils (%) (Auto) 0, Basophils (%) (Auto) 0, Neutr ophils # (Auto) 13.8H, Lymphocytes # (Auto) 0.4L, Monocytes # (Auto) 0.1, Eosinophils # (Auto) 0.0, Basophils # (Auto) 0.0, Sodium Level 133L, Potassium Level 3.5L, Chloride Level 96L, Carbon Dioxide Level 25, Anion Gap 12, Blood Urea Nitrogen 18, Creatinine 0.91, Estimat Glomerular Filtration Rate > 60, BUN/Creatinine Ratio 20, Glucose Level 185H, Calcium Level 9.4, Corrected Calciu m 10.4H, Total Bilirubin 0.6, Aspartate Amino Transf (AST/SGOT) 30, Alanine Aminotransferase (ALT/SGPT) 39, Alkaline Phosphatase 73, Total Protein 5.8L, Albumin 2.8L 11/06/19 02:45: 11/06/19 10:49: Glucometer 275H 11/06/19 15:46: Glucometer 299H Microbiology 11/05/19 Blood Culture - Preliminary, Resulted No growth 11/05/19 Gram Stain - Final, Resulted 11/05/19 Wound Culture, Resulted Pending Patient resulted labs reviewed. Pending Labs Laboratory Tests 11/06/19 15:46: Glucometer 299 Discussion & Recommendations Discharge Planning: >30 minutes discharge planning Discharge Home Medications: Active Scripts Active Reported [place]-3 Acid Ethyl Esters 1 Gm Capsule 1 Gm PO BID LAST FILLED 06-29-2019 #180/90 DAY SUPPLY Cephalexin 500 Mg Capsule 500 Mg PO BID FILLED 11-04-2019 #14/7 DAY SUPPLY Prednisone 20 Mg Tab 30 Mg PO BID TAKES 1 & TABS (20MG) TWICE DAILY Vitamin C (Ascorbic Acid) 250 Mg Tab 250 Mg PO BID Aspirin EC (Aspirin) 81 Mg Tablet.dr 81 Mg PO DAILY Flomax (Tamsulosin HCl) 0.4 Mg Cap 0.4 Mg PO DAILY Chlorthalidone 25 Mg Tablet 25 Mg PO DAILY Atorvastatin Calcium 20 Mg Tablet 20 Mg PO HS Zyrtec (Cetirizine HCl) 10 Mg Tablet 10 Mg PO DAILY Lansoprazole 15 Mg Capsule.dr 15 Mg PO DAILY Celexa (Citalopram Hydrobromide) 40 Mg Tablet 40 Mg PO DAILY Synthroid (Levothyroxine Sodium) 100 Mcg Tablet 100 Mcg PO DAILY Cellcept (Mycophenolate Mofetil) 500 Mg Tablet 1,000 Mg PO BID TAKES 2 (500MG) TABS Advair 500-50 Diskus (Fluticasone/Salmeterol) 1 Each Blst.w.dev 1 Each IH BID Toprol Xl (Metoprolol Succinate) 25 Mg Tab.er.24h 25 Mg PO BID Niacin 1,000 Mg Tablet.er 1,000 Mg PO HS Instructions to patient/family Please see electronic discharge instructions given to patient. Clinical Quality Measures DVT/VTE Risk/Contraindication: Risk Factor Score Per Nursin RFS Level Per Nursing on Admit: 4+=Very High GIL STORY MD Nov 06, 2019 19:09
--- NOTE | 2019-11-06 19:39 | NUR ---
PER DR STORY, PT IS ABLE TO COME OUT OF ISOLATION. CONTACTED [facility], GAVE REPORT TO ANDRES ALEJANDRO. CONTACTED [facility] AND WAS TOLD THAT EMS WOULD HEAD THIS WAY SHORTLY.
--- NOTE | 2019-11-06 20:30 | NUR ---
EMS HERE TO TRANSFER PT TO AT THIS TIME. TRANSFER PACKET AND REPORT GIVEN TO EMS. TRANSFER CENTER CALLED AND INFORMED OF PT LEAVING. RADIOLOGY CALLED AND INFORMED TO CLOUD IMAGES TO . UPDATED ABOUT PT LEAVING.
== END 2019-11-06 20:30 | disposition short-term general hospital (02) | DRG 863 ==
LOC: EDUNIT# 20:41 → ER 20:45 → ICU 22:30 → CSD 11-06 10:40 → ICU 11-06 10:40
PROVIDERS: ADMIT Internal Medicine; ATTEND Internal Medicine
DX: T81.44XA Sepsis following a procedure, initial encounter (principal); T81.31XA Disruption of external operation (surgical) wound, not elsewhere classified, initial encounter; T81.41XA Infection following a procedure, superficial incisional surgical site, initial encounter; J84.10 Pulmonary fibrosis, unspecified; R09.02 Hypoxemia; G47.30 Sleep apnea, unspecified; E78.00 Pure hypercholesterolemia, unspecified; I10 Essential (primary) hypertension; M19.91 Primary osteoarthritis, unspecified site; E03.9 Hypothyroidism, unspecified; Z20.828 Contact with and (suspected) exposure to other viral communicable diseases; Z93.3 Colostomy status; Z85.820 Personal history of malignant melanoma of skin; Z87.891 Personal history of nicotine dependence; Z79.52 Long term (current) use of systemic steroids
CPT/HCPCS: 36415; 71045; 80053; 81000; 82550; 82553; 82962; 83036; 83605; 83615; 83735; 83874; 83880; 84145; 84484; 85007; 85025; 85027; 85379; 85610; 85652; 85730; 86141; 87040; 87070; 87081; 87205; 87635; 93005; 93041; 94640